=== PATIENT | male | born 1955 | race Caucasian/White ===

== ENCOUNTER → 2016-11-06 | Outpatient (CLI) | payer BC | LOC: RAD 07:36 | PROVIDERS: ATTEND Physician Assistant | DX: R94.5 Abnormal results of liver function studies (principal) | CPT/HCPCS: 76705 ==

== ENCOUNTER → 2017-02-19 | Outpatient (CLI) | payer BC ==
--- NOTE | 2017-02-19 13:36 | RADIOLOGY REPORT (SQ) ---
EXAM DESCRIPTION: CT ABDOMEN COMBO COMPLETED DATE/TIME: 02/19/2017 12:58 pm REASON FOR STUDY: ABNORMAL RESULTS OF LIVER FUNCTION STUDIES R94.5 ABNORMAL RESULTS OF LIVER FUNCTI ON STUDIES R16.0 HEPATOMEGALY, NOT ELSEWHERE CLASSIFIED COMPARISON: None. TECHNIQUE: CT scan of the abdomen performed with and without intravenous contrast, and with oral con trast. Contrasted imaging performed using helical scanning technique with dynamic intravenous contras t injection. Images reviewed with lung, soft tissue, and bone windows. Reconstructed coronal and sagi ttal MPR images reviewed. Delayed images for evaluation of the urinary system also acquired and evalu ated. All images stored on PACS. All CT scanners at this facility use dose modulation, iterative reconstruction, and/or weight based d osing when appropriate to reduce radiation dose to as low as reasonably achievable (ALARA). [facility]: Dose Right [facility]: CareDose [facility]: Dose Right [facility]: Teradose 4D [facility]: [email or web address] CONTRAST TYPE AND DOSE: contrast/concentration: Isovue 370.00 mg/ml; Total Contrast Delivered: 59.0 ml; Total Saline Delivered: 79.0 ml RENAL FUNCTION: Creatinine 1.1 RADIATION DOSE: Up-to-date CT equipment and radiation dose reduction techniques were employed. CTDIv ol: 18.9 - 22.5 mGy. DLP: 3052 mGy-cm.. LIMITATIONS: None. FINDINGS: NONCONTRASTED IMAGING: There are 2 hyperdense lesions associated with the right kidney. T he larger measures 33 mm. The smaller measures 8 mm. These are well-circumscribed and show no enhan cement. POSTCONTRASTED IMAGING: LOWER CHEST: No significant findings. No nodules or infiltrates. LIVER: Normal size. No masses or dilated ducts. SPLEEN: Normal size. No focal lesions. PANCREAS: No masses. No significant calcifications. No adjacent inflammation or peripancreatic fluid collections. Pancreatic duct not dilated. GALLBLADDER: Surgically absent. ADRENAL GLANDS: No significant masses or asymmetry. RIGHT KIDNEY AND URETER: No definite solid masses. There are 2 hyperdense lesions having an appearan ce suggestive of hyperdense cysts. No significant calcifications. No hydronephrosis or hydrourete r. LEFT KIDNEY AND URETER: No solid masses. No significant calcifications. No hydronephrosis or hydr oureter. AORTA AND VESSELS: Mild atherosclerosis. No aneurysm. No dissection. Plaques are present the origi n of the superior mesenteric artery in the origin of the celiac. There is no significant stenosis. There are 2 right renal arteries originating in from a single trunk. There is no renal stenosis. Th e inferior mesenteric artery is patent. Common iliac arteries are patent. RETROPERITONEUM: No retroperitoneal adenopathy, hemorrhage or masses. BOWEL AND PERITONEAL CAVITY: Scattered diverticula arise from the descending and sigmoid colon. APPENDIX: Not included. ABDOMINAL WALL: No masses. No hernias. BONES: No significant or acute findings. OTHER: There is slight thickening of the anterior renal fascia on the left. There is no evidence of inflammatory changes associated with the tail of the pancreas, however. IMPRESSION: 1. There are 2 hyperdense right renal lesions suggestive of hyperdense cysts. No solid mass was seen on the ultrasound that was done on 11/06/2016. Consider six-month follow-up CT with con trast. 2. There is mild diverticulosis coli. 3. There is atherosclerosis with no significant arterial stenoses. 4. There is mild thickening of the anterior renal fascia on the left, but no inflammatory changes ar e seen in the pancreas. TECHNICAL DOCUMENTATION: JOB ID: [id number] Quality ID # [id number]: Final reports with documentation of one or more dose reduction techniques (e.g., Au tomated exposure control, adjustment of the mA and/or kV according to patient size, use of iterative reconstruction technique) 2010 [employer]- All Rights Reserved
== END ==
LOC: RAD 12:31
PROVIDERS: ATTEND Internal Medicine Gastroenterology
DX: R94.5 Abnormal results of liver function studies (principal); R16.0 Hepatomegaly, not elsewhere classified
CPT/HCPCS: 74170; 82565

== ENCOUNTER → 2018-06-27 | Outpatient (CLI) | payer BC ==
--- NOTE | 2018-06-27 10:38 | RADIOLOGY REPORT (SQ) ---
EXAM DESCRIPTION: CT ABDOMEN WITH IV ORAL CONT COMPLETED DATE/TIME: 06/27/2018 7:58 am REASON FOR STUDY: HEPATOMEGALY, NEC (R16.0), CIRRHOSIS (ALCOHOLIC)(K70.30), RUQ PAIN (R10.11) K70.30 ALCOHOLIC CIRRHOSIS OF LIVER WITHOUT ASCITES R10.11 RIGHT UPPER QUADRANT PAIN R16.0 HEPATOMEGALY, NOT ELSEWHERE CLASSIFIED COMPARISON: CT abdomen 02/19/2017 Abdominal ultrasound 11/06/2016, 09/24/2014 CT chest 07/27/2015 TECHNIQUE: CT scan of the abdomen performed with intravenous and with oral contrast using helical sc anning technique with dynamic intravenous contrast injection. Images reviewed with lung, soft tissue, and bone windows. Reconstructed coronal and sagittal MPR images reviewed. Delayed images for evaluat ion of the urinary system also acquired and evaluated. All images stored on PACS. All CT scanners at this facility use dose modulation, iterative reconstruc tion, and/or weight based dosing when appropriate to reduce radiation dose to as low as reasonably ac hievable (ALARA). [facility]: Dose Right [facility]: CareDose [facility]: Dose Right [facility]: Teradose 4D [facility]: [employer] CONTRAST TYPE AND DOSE: contrast/concentration: Isovue 350.00 mg/ml; Total Contrast Delivered: 100.0 ml; Total Saline Delivered: 72.0 ml RENAL FUNCTION: Creatinine 1.1 RADIATION DOSE: CT Rad equipment meets quality standard of care and radiation dose reduction techniq ues were employed. CTDIvol: 22.8 - 24.4 mGy. DLP: 1683 mGy-cm. . LIMITATIONS: None. FINDINGS: LOWER CHEST: No significant findings. No nodules or infiltrates. LIVER: Slightly nodular contour, with atrophy of the right lobe liver and prominence of the left lobe liver from cirrhosis. Normal portal vein and hepatic vein enhancement. No gross hepatic masses. N o biliary ductal dilatation. There is portal hypertension, with multiple varices in the left upper quadrant and right upper quadra nt, and left retroperitoneum. Small to moderate amount of ascites in the upper abdomen. SPLEEN: Not enlarged. No focal lesions PANCREAS: No masses. No significant calcifications. No adjacent inflammation or peripancreatic fluid collections. Pancreatic duct not dilated. GALLBLADDER: Surgically absent ADRENAL GLANDS: No significant masses or asymmetry. RIGHT KIDNEY AND URETER: No solid masses. Benign 3 cm right upper pole hemorrhagic cysts. Multiple other smaller hemorrhagic and nonhemorrhagic cortical cysts are present right kidney. No significan t calcifications. No hydronephrosis or hydroureter. LEFT KIDNEY AND URETER: No solid masses. Nonhemorrhagic cysts left kidney, the largest is 3 cm in th e left mid pole. No significant calcifications. No hydronephrosis or hydroureter. AORTA AND VESSELS: No aneurysm. No dissection. Renal arteries, SMA, celiac without stenosis. RETROPERITONEUM: No retroperitoneal adenopathy, hemorrhage or masses. BOWEL AND PERITONEAL CAVITY: Patient drank oral contrast. No bowel obstruction. APPENDIX: Not in the field of view ABDOMINAL WALL: No masses. No hernias. BONES: Degenerative disc disease at L4-5 OTHER: No other significant finding. IMPRESSION: Cirrhosis with portal hypertension. Small to moderate amount of ascites in the upper ab domen TECHNICAL DOCUMENTATION: JOB ID: [id number] Quality ID # [id number]: Final reports with documentation of one or more dose reduction techniques (e.g., Au tomated exposure control, adjustment of the mA and/or kV according to patient size, use of iterative reconstruction technique) 2010 [employer]- All Rights Reserved Reading location - IP/workstation name: [email or web address]
== END ==
LOC: RAD 07:22
PROVIDERS: ATTEND Internal Medicine Gastroenterology
DX: K70.30 Alcoholic cirrhosis of liver without ascites (principal); R16.0 Hepatomegaly, not elsewhere classified; R10.11 Right upper quadrant pain
CPT/HCPCS: 74160; 82565

== ENCOUNTER → 2018-08-20 | Outpatient (CLI) | payer BC ==
[2018-08-20 10:05] LABS: BLOOD UREA NITROGEN 17 mg/dL (7-20); GLUCOSE 100 mg/dL (75-110); POTASSIUM 5.3 mmol/L (3.6-5.0)
[2018-08-20 10:10] LABS: ANION GAP 7 (5-19); CARBON DIOXIDE 29 mmol/L (22-30); CHLORIDE 101 mmol/L (98-107); SODIUM 136.8 mmol/L (137-145)
== END ==
LOC: LAB 09:30
PROVIDERS: ATTEND Physician Assistant Surgical
DX: E87.5 Hyperkalemia (principal)
CPT/HCPCS: 36415; 80048

== ENCOUNTER → 2018-10-23 | Outpatient (CLI) | payer BC ==
[2018-10-23 10:55] LABS: HEMATOCRIT 44.1 % (37.9-51.0); HEMOGLOBIN 15.4 g/dL (13.5-17.0); MEAN CORPUSCULAR HEMOGLOBIN 35.8 pg (27.0-33.4); MEAN CORPUSCULAR HGB CONC 34.9 g/dL (32.0-36.0); MEAN CORPUSCULAR VOLUME 103 fl (80-97); PLATELET COUNT 136 10^3/uL (150-450); RED BLOOD COUNT 4.31 10^6/uL (4.35-5.55); RED CELL DISTRIBUTION WIDTH 12.9 % (11.5-14.0)
[2018-10-23 11:02] LABS: INTERNATIONAL RATION (INR) 1.11; PROTHROMBIN TIME 14.9 SEC (11.4-15.4)
[2018-10-23 11:20] LABS: ALANINE AMINOTRANSFERASE 37 U/L (21-72); ALBUMIN 3.9 g/dL (3.5-5.0); ALKALINE PHOSPHATASE 70 U/L (38-126); ANION GAP 8 (5-19); ASPARTATE AMINO TRANSFERASE 68 U/L (17-59); BILIRUBIN,DIRECT 0.5 mg/dL (0.0-0.4); BILIRUBIN,TOTAL 1.2 mg/dL (0.2-1.3); BLOOD UREA NITROGEN 10 mg/dL (7-20); CALCIUM 9.5 mg/dL (8.4-10.2); CARBON DIOXIDE 29 mmol/L (22-30); CHLORIDE 102 mmol/L (98-107); GLUCOSE 169 mg/dL (75-110); POTASSIUM 4.9 mmol/L (3.6-5.0); SODIUM 139.2 mmol/L (137-145); TOTAL PROTEIN 6.9 g/dL (6.3-8.2)
== END ==
LOC: LAB 10:36
PROVIDERS: ATTEND Physician Assistant Surgical
DX: K70.30 Alcoholic cirrhosis of liver without ascites (principal); R16.0 Hepatomegaly, not elsewhere classified
CPT/HCPCS: 36415; 80048; 80076; 85027; 85610

== ENCOUNTER → 2018-11-22 | Outpatient (CLI) | payer BC ==
[2018-11-22 09:42] LABS: HEMATOCRIT 44.8 % (37.9-51.0); HEMOGLOBIN 15.9 g/dL (13.5-17.0); MEAN CORPUSCULAR HEMOGLOBIN 35.8 pg (27.0-33.4); MEAN CORPUSCULAR HGB CONC 35.5 g/dL (32.0-36.0); MEAN CORPUSCULAR VOLUME 101 fl (80-97); PLATELET COUNT 172 10^3/uL (150-450); RED BLOOD COUNT 4.44 10^6/uL (4.35-5.55); RED CELL DISTRIBUTION WIDTH 12.4 % (11.5-14.0); WHITE BLOOD COUNT 5.9 10^3/uL (4.0-10.5)
[2018-11-22 09:48] LABS: INTERNATIONAL RATION (INR) 1.07; PROTHROMBIN TIME 14.5 SEC (11.4-15.4)
[2018-11-22 10:04] LABS: ALANINE AMINOTRANSFERASE 40 U/L (21-72); ALBUMIN 3.8 g/dL (3.5-5.0); ALKALINE PHOSPHATASE 88 U/L (38-126); ANION GAP 9 (5-19); ASPARTATE AMINO TRANSFERASE 70 U/L (17-59); BILIRUBIN,DIRECT 0.6 mg/dL (0.0-0.4); BILIRUBIN,TOTAL 1.6 mg/dL (0.2-1.3); BLOOD UREA NITROGEN 15 mg/dL (7-20); CALCIUM 9.9 mg/dL (8.4-10.2); CARBON DIOXIDE 33 mmol/L (22-30); CHLORIDE 92 mmol/L (98-107); GLUCOSE 179 mg/dL (75-110); POTASSIUM 4.7 mmol/L (3.6-5.0); SODIUM 133.9 mmol/L (137-145); TOTAL PROTEIN 7.5 g/dL (6.3-8.2)
== END ==
LOC: OD 08:42
PROVIDERS: ATTEND Physician Assistant Surgical
DX: K70.30 Alcoholic cirrhosis of liver without ascites (principal); R94.5 Abnormal results of liver function studies
CPT/HCPCS: 36415; 80048; 80076; 82105; 85027; 85610

== ENCOUNTER 2019-04-14 08:18 | Inpatient (IN) | payer BC ==
[2019-04-14] MEDS ORDERED: PANTOPRAZOLE SODIUM 40 MG VIAL IV ONE ×2 (08:39→13:22)
[2019-04-14] MEDS ORDERED: NORMAL SALINE 1000 ML 1,000 ML IV ONE (08:39)
--- NOTE | 2019-04-14 08:45 | ER Document Report ---
ED GI Bleed / Rectal Pain - General Stated Complaint: POSSIBLE GI BLEED Time Seen by Provider: 04/14/19 08:37 Primary Care Provider: KARLA RAMACHANDRAN PA-C [COMMUNITY BASED STAFF] - Follow up as needed Notes: 63-year-old male with a history of alcoholic liver disease presents to the ER complaining of black tarry stools. Patient is also thrown up several times. He states she has had some small specks of bright red blood in his emesis. He denies any abdominal pain. Denies chest pain denies shortness of breath. Mother stated that the patient had some alcohol this weekend and this is likely what has triggered the events. The patient is on medicine for edema and cirrhosis. The patient denies any fever chills cough or sore throat states he is vomited several times with some small specks of blood in the emesis the knees had consistent black tarry stools. TRAVEL OUTSIDE OF THE [place] IN LAST 30 DAYS: No - Related Data Allergies/Adverse Reactions: morphine Allergy (Intermediate, Verified 04/14/19 09:32) oxycodone Allergy (Intermediate, Verified 04/14/19 09:33) Past Medical History - Social History Smoking Status: Current Every Day Smoker Family History: None Review of Systems - Review of Systems Constitutional: denies: Chills, Fever Cardiovascular: denies: Chest pain, Dizziness Respiratory: denies: Short of breath Gastrointestinal: Abdomen distended, Abdominal pain, Nausea, Vomiting, Blood in vomit, Black stools. denies: Constipation Genitourinary: denies: Dysuria Neurological/Psychological: denies: Headaches -: Yes All other systems reviewed and negative Physical Exam - Vital signs Vitals: Pulse Ox 98 04/14/19 08:32 - Notes Notes: GENERAL_APPEARANCE: well_nourished, alert, cooperative VITALS: reviewed, see vital signs table. HEAD: no_swelling\tenderness on the head. EYES: conjunctiva_clear. NOSE: no_nasal_discharge. MOUTH: (-)decreased moisture. THROAT: no_tonsilar_inflammation, no_airway_obstruction. no_lymphadenopathy NECK: supple, no_neck_tenderness, (-)thyromegaly. BACK: no_back_tenderness. CHEST_WALL: no_chest_tenderness. LUNGS: no_wheezing, no_rales, no_rhonchi, (-)accessory muscle use, good air exchange bilateral. HEART: normal_rate, normal_rhythm, normal_S1, normal_S2, (-)S3, (-)S4, no_murmur, no_rub. ABDOMEN: normal_BS, soft, no_abd_tenderness, (-)guarding, (-)rebound, no_org anomegaly, no_abd_masses. EXTREMITIES: strength 5/5 in all_extremities, good pulses in all_extremities, no_swelling\tenderness in the extremities, no_edema. SKIN: warm, dry, good_color, no_rash. MENTAL_STATUS: speech_clear, oriented_X_3, normal_affect, responds_appropriately to questions. NEURO: Neg Motor or Sensory Deficits on exam, CN 2-12 intact, DTR 2+ symmetric x 4, No cerbellar signs Course - Re-evaluation Re-evalutation: 04/14/19 08:44 63-year-old male with history of alcoholic liver disease presents to the ER with back tarry stools. He also states he is vomited several times have some small amount of blood in the emesis. He denies any history of esophageal varices. Never had a EGD with clipping. We will give the patient 80 of IV Protonix a liter of IV fluid. We will check his stool for blood. Check his hemoglobin coags and type and screen. Patient GI doctors Dr. Anderson. 04/14/19 12:11 Lab work is fairly reassuring. The patient rectal exam showed no masses but he is having very dark tarry stools. He has not thrown up any more coffee-ground emesis or blood. The patient's lab work does show an suggest his chronic cirrhosis and liver disease. Because of this the patient is more at risk for worsening GI bleeding. I will speak with the hospitalist service. - Vital Signs Vital signs: Temp Pulse Resp BP Pulse Ox 98.2 F 16 138/71 H 98 04/14/19 08:49 04/14/19 11:01 04/14/19 11:00 04/14/19 11:01 - Laboratory Result Diagrams: 04/14/19 08:39 04/14/19 08:39 Laboratory results interpreted by me: 04/14/19 04/14/19 04/14/19 08:39 08:39 08:39 RBC 3.57 L Hgb 12.7 L Hct 36.5 L MCV 102 H MCH 35.6 H PT 18.0 H Sodium 131.6 L Chloride 91 L Carbon Dioxide 33 H Glucose 137 H Total Bilirubin 3.3 H Direct Bilirubin 1.0 H AST 117 H Albumin 3.3 L - Diagnostic Test Radiology reviewed: Reports reviewed Radiology results interpreted by me: 04/14/19 12:10 Acute Abdomen Series 04/14/19 08:39 IMPRESSION: NO RADIOGRAPHIC EVIDENCE FOR ACUTE ABDOMINAL DISEASE. Discharge - Discharge Clinical Impression: Upper GI bleeding Condition: Good Disposition: ADMITTED INPATIENT Admitting Provider: Farshad (Hospitalist) Unit Admitted: Telemetry Referrals: KARLA RAMACHANDRAN PA-C [COMMUNITY BASED STAFF] - Follow up as needed
[2019-04-14 08:58] LABS: ABSOLUTE LYMPHOCYTES (AUTO) 1.1 10^3/uL (0.5-4.7); ABSOLUTE MONOCYTES (AUTO) 0.6 10^3/uL (0.1-1.4); ABSOLUTE NEUT (AUTO) 6.1 10^3/uL (1.7-8.2); BASOPHILS % (AUTO) 0.4 % (0-2); EOSINOPHILS % (AUTO) 0.3 % (0-6); HEMATOCRIT 36.5 % (37.9-51.0); HEMOGLOBIN 12.7 g/dL (13.5-17.0); LYMPHOCYTES % (AUTO) 13.5 % (13-45); MEAN CORPUSCULAR HEMOGLOBIN 35.6 pg (27.0-33.4); MEAN CORPUSCULAR HGB CONC 34.8 g/dL (32.0-36.0); MEAN CORPUSCULAR VOLUME 102 fl (80-97); MONOCYTES % (AUTO) 7.8 % (3-13); PLATELET COUNT 172 10^3/uL (150-450); RED BLOOD COUNT 3.57 10^6/uL (4.35-5.55); TOTAL CELLS COUNTED % (AUTO) 100 %; WHITE BLOOD COUNT 7.8 10^3/uL (4.0-10.5)
[2019-04-14 09:04] LABS: INTERNATIONAL RATION (INR) 1.48
[2019-04-14 09:05] LABS: PARTIAL THROMBOPLASTIN TIME 31.3 SEC (23.5-35.8)
[2019-04-14 09:21] LABS: ALBUMIN 3.3 g/dL (3.5-5.0); ALKALINE PHOSPHATASE 84 U/L (38-126); ANION GAP 8 (5-19); ASPARTATE AMINO TRANSFERASE 117 U/L (17-59); BILIRUBIN,TOTAL 3.3 mg/dL (0.2-1.3); BLOOD UREA NITROGEN 20 mg/dL (7-20); CALCIUM 9.2 mg/dL (8.4-10.2); CARBON DIOXIDE 33 mmol/L (22-30); CHLORIDE 91 mmol/L (98-107); GLUCOSE 137 mg/dL (75-110); TOTAL PROTEIN 6.5 g/dL (6.3-8.2)
[2019-04-14 09:22] LABS: ALCOHOL < 10 mg/dL (NONE DETECTED)
--- NOTE | 2019-04-14 09:30 | RADIOLOGY REPORT (SQ) ---
EXAM DESCRIPTION: ACUTE ABDOMEN SERIES COMPLETED DATE/TIME: 04/14/2019 9:08 am REASON FOR STUDY: Vomiting COMPARISON: None. NUMBER OF VIEWS: Three views. TECHNIQUE: Frontal chest, supine abdomen and upright/decubitus abdomen radiographic images acquired. LIMITATIONS: None. FINDINGS: CHEST: Lungs clear of infiltrates. FREE AIR: None. No abnormal gas collections. BOWEL GAS PATTERN: Nonobstructive pattern. No dilated loops or air fluid levels. CALCIFICATIONS: No suspicious calcifications. HARDWARE: Surgical clips in the upper abdomen. Hardware in the right humeral head. SOFT TISSUES: No gross mass or suggestion of organomegaly. BONES: No acute fracture. No worrisome bone lesions. OTHER: No other significant finding. IMPRESSION: NO RADIOGRAPHIC EVIDENCE FOR ACUTE ABDOMINAL DISEASE. TECHNICAL DOCUMENTATION: JOB ID: [id number] [employer]- All Rights Reserved Reading location - IP/workstation name: [email or web address]
[2019-04-14] MEDS ORDERED: DEXTROSE 50%-WATER 25 GM/50 ML DISP.SYRIN IV PRN ×2 (13:21)
[2019-04-14] MEDS ORDERED: NORMAL SALINE 1000 ML 1,000 ML IV PRN (13:21)
[2019-04-14] MEDS ORDERED: GLUCAGON,HUMAN RECOMB 1 MG INJ SUBCUT PRN (13:21)
[2019-04-14] MEDS ORDERED: ONDANSETRON HCL INJ/PF 4 MG/2 ML SDV IV PRN (13:21)
[2019-04-14] MEDS ORDERED: IPRATROPIUM/ALBUTEROL 0.5-2.5 MG/3 ML AMPUL NEB PRN (13:21)
[2019-04-14] MEDS ORDERED: ACETAMINOPHEN 325 MG TABLET PO PRN (13:21)
[2019-04-14] MEDS ORDERED: DEXTROSE 40% GEL 15 GM TUBE PO PRN ×2 (13:21)
[2019-04-14] MEDS ORDERED: LORAZEPAM 0.5 MG TABLET PO PRN (17:03)
--- NOTE | 2019-04-14 17:10 | PDOC H&P ---
History of Present Illness Admission Date/PCP: 04/14/19 12:28 MELANIE SALEEM MD Patient complains of: Black tarry stool History of Present Illness: KIRK CHINCHILLA is a 63 year old male Is a 63-year-old male with a history of alcoholic cirrhosis of the liver history of the esophageal varices history of the hypertension hyperlipidemia and history of the rheumatoid arthritis came to the emergency department complaining of a black tarry stool in patients also throughout with some red blood couple of times Patient's denied any abdominal pain no nausea but vomited as above. .Patient's also currently see a Dr. Anderson last endoscopy was done in 2018 with so some mild psoriasis Patient also see Dr. Romero for rheumatoid arthritis is not getting the every 6- month injections In the emergency department patient initial work-up positive for guaiac stool and patient hemoglobin is stable Patient is denied any chest pain to than any shortness of the breath At this point discussed with Dr. Anderson decided to admit keep n.p.o. and possible need a further scope Patient's claimed that he drinks some alcohol this weekend and I believe that triggered the things patient's serum alcohol level is low Past Medical History Pulmonary Medical History: Reports: Chronic Obstructive Pulmonary Disease (COPD) GI Medical History: Reports: Cirrhosis, Gastroesophageal Reflux Disease Musculoskeletal History Note: Rheumatoid arthritis Psychiatric Medical History: Reports: Alcohol Dependency Past Surgical History Past Surgical History: Reports: Cholecystectomy, Other Social History Information Source: Patient Smoking Status: Current Every Day Smoker Frequency of Alcohol Use: Social Hx Recreational Drug Use: No Hx Prescription Drug Abuse: No Family History Family History: None, Reviewed & Not Pertinent Parental Family History Reviewed: Yes Children Family History Reviewed: Yes Sibling(s) Family History Reviewed.: Yes Medication/Allergy Home Medications: Furosemide [Lasix 20 mg Tablet] 20 mg PO QAM 04/14/19 Ibuprofen [Motrin 800 mg Tablet] 800 mg PO Q8H PRN 04/14/19 Nadolol [Corgard] 20 mg PO QPM 04/14/19 Nadolol [Corgard] 40 mg PO QAM 04/14/19 Pantoprazole Sodium [Protonix [address] Tablet] 40 mg PO DAILY 04/14/19 Spironolactone [Aldactone 25 mg Tablet] 25 mg PO DAILY 04/14/19 Allergies/Adverse Reactions: morphine Allergy (Intermediate, Verified 04/14/19 09:32) oxycodone Allergy (Intermediate, Verified 04/14/19 09:33) Review of Systems Constitutional: ABSENT: chills, fever(s), headache(s), weight gain, weight loss Eyes: ABSENT: visual disturbances Ears: ABSENT: hearing changes Cardiovascular: ABSENT: chest pain, dyspnea on exertion, edema, orthropnea, palpitations Respiratory: ABSENT: cough, hemoptysis Gastrointestinal: PRESENT: melena, nausea, vomiting. ABSENT: abdominal pain, constipation, diarrhea, hematemesis, hematochezia Genitourinary: ABSENT: dysuria, hematuria Musculoskeletal: ABSENT: joint swelling Integumentary: ABSENT: rash, wounds Neurological: ABSENT: abnormal gait, abnormal speech, confusion, dizziness, focal weakness, syncope Psychiatric: ABSENT: anxiety, depression, homidical ideation, suicidal ideation Endocrine: ABSENT: cold intolerance, heat intolerance, menstrual abnormalities, polydipsia, polyuria Hematologic/Lymphatic: ABSENT: easy bleeding, easy bruising, lymphadenopathy Physical Exam Vital Signs: Temp Pulse Resp BP Pulse Ox 98.2 F 16 138/71 H 98 04/14/19 08:49 04/14/19 11:01 04/14/19 11:00 04/14/19 11:01 Intake & Output 04/13/19 04/14/19 04/15/19 06:59 06:59 06:59 Intake Total 1000 Balance 1000 Weight 100.8 kg General appearance: PRESENT: no acute distress, well-developed, well-nourished Head exam: PRESENT: atraumatic, normocephalic Eye exam: PRESENT: conjunctiva pink, EOMI, PERRLA. ABSENT: scleral icterus Ear exam: PRESENT: normal external ear exam Mouth exam: PRESENT: moist, tongue midline Neck exam: PRESENT: full ROM. ABSENT: carotid bruit, JVD, lymphadenopathy, thyromegaly Respiratory exam: PRESENT: clear to auscultation arnulfo Cardiovascular exam: PRESENT: RRR. ABSENT: diastolic murmur, rubs, systolic murmur Pulses: PRESENT: normal dorsalis pedis pul, +2 pedal pulses bilateral Vascular exam: PRESENT: normal capillary refill GI/Abdominal exam: PRESENT: normal bowel sounds, soft. ABSENT: distended, guarding, mass, organolmegaly, rebound, tenderness Rectal exam: PRESENT: deferred Extremities exam: ABSENT: pedal edema Musculoskeletal exam: PRESENT: ambulatory Neurological exam: PRESENT: alert, awake, oriented to person, oriented to place, oriented to time, oriented to situation, CN II-XII grossly intact. ABSENT: motor sensory deficit Psychiatric exam: PRESENT: appropriate affect, normal mood. ABSENT: homicidal ideation, suicidal ideation Skin exam: PRESENT: dry, intact, warm. ABSENT: cyanosis, rash Results Laboratory Results: 04/14/19 08:39 04/14/19 08:39 04/14/19 04/14/19 04/14/19 08:39 08:39 08:39 WBC 7.8 RBC 3.57 L Hgb 12.7 L Hct 36.5 L MCV 102 H MCH 35.6 H MCHC 34.8 RDW 13.0 Plt Count 172 Seg Neutrophils % 78.0 Lymphocytes % 13.5 Monocytes % 7.8 Eosinophils % 0.3 Basophils % 0.4 Absolute Neutrophils 6.1 Absolute Lymphocytes 1.1 Absolute Monocytes 0.6 Absolute Eosinophils 0.0 Absolute Basophils 0.0 Sodium 131.6 L Potassium 4.0 Chloride 91 L Carbon Dioxide 33 H Anion Gap 8 BUN 20 Creatinine 1.07 Est GFR ( Amer) > 60 Est GFR (Non-Af Amer) > 60 Glucose 137 H Calcium 9.2 Total Bilirubin 3.3 H AST 117 H Alkaline Phosphatase 84 Total Protein 6.5 Albumin 3.3 L Lipase 169.8 Blood Type AB NEGATIVE Antibody Screen NEGATIVE Impressions: Acute Abdomen Series 04/14/19 08:39 IMPRESSION: NO RADIOGRAPHIC EVIDENCE FOR ACUTE ABDOMINAL DISEASE. Assessment & Plan - Diagnosis (1) Upper GI bleeding Is this a current diagnosis for this admission?: Yes Plan: Admit the patient in a telemetry started on a Protonix drips IV fluid and as per discussed with Dr. 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 We currently hold the any NSAID The injections every 6-month (5) Chronic obstructive pulmonary disease Qualifiers: COPD type: unspecified COPD Qualified Code(s): J44.9 - Chronic obstructive pulmonary disease, unspecified Is this a current diagnosis for this admission?: Yes Plan: Continues to PRN nebulizer treatments (6) Hypertension Qualifiers: Hypertension type: essential hypertension Qualified Code(s): I10 - Essential (primary) hypertension Is this a current diagnosis for this admission?: Yes Plan: Continues to current medications (7) Hyperlipidemia Qualifiers: Hyperlipidemia type: unspecified Qualified Code(s): E78.5 - Hyperlipidemia, unspecified Is this a current diagnosis for this admission?: No (8) History of alcoholism Is this a current diagnosis for this admission?: Yes Plan: Will continues the patient on thiamine multivitamin and folic acid's Patient's currently alcohol level is less than 10 Patient's claim he is not drinking every day We will continue to monitor and may be consider alcohol withdrawal protocol if he needed - Time Time Spent: 30 to 50 Minutes Medications reviewed and adjusted accordingly: Yes Anticipated discharge: Home Within: Other - Inpatient Certification Based on my medical assessment, after consideration of the patient's comorbidities, presenting symptoms, or acuity I expect that the services needed warrant INPATIENT care.: Yes I certify that my determination is in accordance with my understanding of Medicare's requirements for reasonable and necessary INPATIENT services [42 CFR 412.3e].: Yes Medical Necessity: Significant Comorbidiites Make Outpatient Treatment Too Risky, Need Close Monitoring Due to Risk of Patient Decompensation, Need For IV Fluids Post Hospital Care: D/C Client Relationship Executive Documentation - Plan Summary Plan Summary: Admit the patient in a telemetry bed With the patient and the regarding the patient's current conditions and discussed with the Dr. Anderson
[2019-04-14] MEDS ORDERED: NADOLOL 40 MG TABLET PO SCH (18:00)
[2019-04-14] MEDS ORDERED: (PENDING PHARMACY ID) (Nadolol [Corgard] 20 MG) PO SCH (18:00)
[2019-04-14] MEDS ORDERED: THIAMINE HCL 100 MG, FOLIC ACID 1 MG in NORMAL SALINE 250 ML IV SCH (18:00)
[2019-04-14] MEDS: NORMAL SALINE 1000 ML 1,000 ML with POTASSIUM CHLORIDE 20 MEQ, MAGNESIUM SULFATE 8 MEQ,... IV SCH ×5 (18:39)
[2019-04-14] MEDS ORDERED: OCTREOTIDE ACETATE INJ/PF 100 MCG/1 ML SDV IV ONE (19:09)
[2019-04-14] MEDS ORDERED: ONDANSETRON HCL INJ/PF 4 MG/2 ML SDV IV ONE (19:45)
[2019-04-14] MEDS ORDERED: LORAZEPAM INJ 2 MG/1 ML VIAL IV PRN (19:53)
--- NOTE | 2019-04-14 19:58 | Progress Note ---
Provider Note Provider Note: The nurses call the patient never vomited red blood x1 I came to the floor see the patient was stable patient is alert awake oriented x4 discussed with the and the bedside Examined the patient's Discussed with the Dr. Anderson transfer the patient in ICU prepare for the endoscopy Patient have a significant history of the alcoholism as per discussed with the patient drinks 7-8 beer last night patient continues use the ibuprofen and patient have history of esohagel varices and cirrosis most likely bleeding come from the varices We will check the stat CBC Chem-7 PT/INR Dr. Anderson order the FFP And octreotide drips Patient's brought to the ICU discussed with the ICU nurses Patient is currently hemodynamically stable Again patient with significant risk for the bleeding from the varices with the peptic ulcer disease and cirrhosis of the liver and chronic alcoholism and chronic use NSAID
[2019-04-14] MEDS ORDERED: DIPHENHYDRAMINE HCL 50 MG/ML VIAL ONE (20:01)
[2019-04-14] MEDS ORDERED: ONDANSETRON HCL INJ/PF 4 MG/2 ML SDV ONE (20:01)
[2019-04-14] MEDS ORDERED: FENTANYL CITRATE INJ/PF 100 MCG/2 ML AMPUL ONE (20:01)
[2019-04-14] MEDS ORDERED: FLUMAZENIL INJ 0.5 MG/5 ML VIAL ONE (20:02)
[2019-04-14] MEDS ORDERED: NALOXONE HCL INJ/PF 0.4 MG/1 ML SDV ONE (20:02)
[2019-04-14] MEDS ORDERED: EPINEPHRINE INJ 1 MG/10 ML DISP.SYRIN ONE (20:02)
[2019-04-14] MEDS ORDERED: GLUCAGON,HUMAN RECOMB 1 MG INJ ONE (20:02)
[2019-04-14 20:33] LABS: ABSOLUTE EOSINOPHILS # (AUTO) 0.1 10^3/uL (0.0-0.6); ABSOLUTE LYMPHOCYTES (AUTO) 1.6 10^3/uL (0.5-4.7); ABSOLUTE MONOCYTES (AUTO) 1.4 10^3/uL (0.1-1.4); ABSOLUTE NEUT (AUTO) 8.2 10^3/uL (1.7-8.2); BASOPHILS % (AUTO) 0.4 % (0-2); EOSINOPHILS % (AUTO) 0.6 % (0-6); HEMATOCRIT 32.5 % (37.9-51.0); HEMOGLOBIN 11.3 g/dL (13.5-17.0); LYMPHOCYTES % (AUTO) 14.4 % (13-45); MEAN CORPUSCULAR HEMOGLOBIN 35.8 pg (27.0-33.4); MEAN CORPUSCULAR HGB CONC 34.9 g/dL (32.0-36.0); MEAN CORPUSCULAR VOLUME 102 fl (80-97); MONOCYTES % (AUTO) 12.5 % (3-13); PLATELET COUNT 166 10^3/uL (150-450); RED BLOOD COUNT 3.17 10^6/uL (4.35-5.55); RED CELL DISTRIBUTION WIDTH 13.2 % (11.5-14.0); SEGMENTED NEUTROPHILS % (AUTO) 72.1 % (42-78); TOTAL CELLS COUNTED % (AUTO) 100 %; WHITE BLOOD COUNT 11.4 10^3/uL (4.0-10.5)
[2019-04-14] MEDS: MIDAZOLAM 2 MG/2 ML INJ ONE ×2 (20:40→20:45)
[2019-04-14 20:45] LABS: INTERNATIONAL RATION (INR) 1.52; PROTHROMBIN TIME 18.4 SEC (11.4-15.4)
[2019-04-14 20:46] LABS: PARTIAL THROMBOPLASTIN TIME 33.3 SEC (23.5-35.8)
[2019-04-14 20:53] LABS: ANION GAP 7 (5-19); BLOOD UREA NITROGEN 26 mg/dL (7-20); CALCIUM 8.8 mg/dL (8.4-10.2); CARBON DIOXIDE 30 mmol/L (22-30); CHLORIDE 96 mmol/L (98-107); GLUCOSE 112 mg/dL (75-110); POTASSIUM 3.9 mmol/L (3.6-5.0)
[2019-04-14] MEDS: NORMAL SALINE 500 ML with OCTREOTIDE ACETATE 500 MCG IV PRN ×2 (21:00)
[2019-04-14] MEDS ORDERED: PANTOPRAZOLE SODIUM 80 MG in NORMAL SALINE 100 ML IV ONE (21:00)
--- NOTE | 2019-04-14 21:15 | PDOC CONSULTATION ---
Consultation Consult Date: 04/14/19 Provider Consulted: DERECK CLEMENT History of Present Illness Admission Date/PCP: 04/14/19 12:28 MELANIE SALEEM MD History of Present Illness: IKRK CHINCHILLA is a 63 year old malePatient was admitted earlier today through the emergency room with hematemesis. He vomited a few times during the night and started vomiting bright red blood again tonight hence he was transferred to ICU. he has a history of moderate size esophageal varices but has never had a GI bleed. His last endoscopy was in June 2018. He has had cirrhosis for many years and continues to abuse alcohol every day. He has been on nadolol since 2018. He denies abdominal pain, or diarrhea. He does have rheumatoid arthritis and takes ibuprofen regularly. On admission his hemoglobin was 12.7 with a white count of 7.8 and platelet count of 172. A repeat 12 hours later showed a hemoglobin of 11.3. His INR was 1.48 on admission with a bilirubin of 3.3, AST 117 and ALT of 55. Albumin was 3.3 with a sodium of 131. He is on furosemide 20 mg and Aldactone 25 mg daily Past Medical History Past Medical History: Reflux disease, rheumatoid arthritis, portal hypertension, esophageal varices, alcohol abuse, fatty liver, COPD, alcoholic cirrhosis Pulmonary Medical History: Reports: Chronic Obstructive Pulmonary Disease (COPD) Neurological Medical History: Denies: Seizures GI Medical History: Reports: Cirrhosis, Gastroesophageal Reflux Disease Psychiatric Medical History: Reports: Alcohol Dependency Past Surgical History Past Surgical History: Reports: Cholecystectomy, Other Social History Smoking Status: Current Every Day Smoker Number of Years Smokin Last Time Smoked: 3 months ago Frequency of Alcohol Use: Social Hx Recreational Drug Use: No Hx Prescription Drug Abuse: No Family History Family History: None, Reviewed & Not Pertinent Parental Family History Reviewed: No Children Family History Reviewed: NA Sibling(s) Family History Reviewed.: NA Medication/Allergy Home Medications: Furosemide [Lasix 20 mg Tablet] 20 mg PO QAM 04/14/19 Ibuprofen [Motrin 800 mg Tablet] 800 mg PO Q8H PRN 04/14/19 Nadolol [Corgard] 20 mg PO QPM 04/14/19 Nadolol [Corgard] 40 mg PO QAM 04/14/19 Pantoprazole Sodium [Protonix [address] Tablet] 40 mg PO DAILY 04/14/19 Spironolactone [Aldactone 25 mg Tablet] 25 mg PO DAILY 04/14/19 Allergies/Adverse Reactions: morphine Allergy (Intermediate, Verified 04/14/19 09:32) oxycodone Allergy (Intermediate, Verified 04/14/19 09:33) Review of Systems All systems: reviewed and no additional remarkable complaints except as stated Physical Exam Vital Signs: Temp Pulse Resp BP Pulse Ox 98.2 F 90 16 135/69 H 97 04/14/19 14:42 04/14/19 20:27 04/14/19 20:27 04/14/19 20:27 04/14/19 20:27 Intake & Output 04/13/19 04/14/19 04/15/19 06:59 06:59 06:59 Intake Total 1300 Balance 1300 Weight 82.5 kg Exam: General: Patient is alert and looks well. HEENT: There is some jaundice but no pallor. PERRLA. Oropharynx normal Respiratory: No chest deformity. No respiratory distress. Chest wall palpitation was unremarkable. Breath sounds were normal Cardiovascular: Heart sounds 1 and 2 normal with no murmurs. Abdominal: Slightly distended. Soft and nontender. Liver and spleen not palpable. No ascites demonstrated. Bowel sounds active. Rectal examination was deferred. Extremities: No edema Neurological: Alert and oriented x4. Grossly nonfocal. Normal speech Skin: No significant rash Psychological: Normal affect Results Laboratory Results: 04/14/19 20:15 04/14/19 20:15 04/14/19 04/14/19 04/14/19 08:39 08:39 08:39 WBC 7.8 RBC 3.57 L Hgb 12.7 L Hct 36.5 L MCV 102 H MCH 35.6 H MCHC 34.8 RDW 13.0 Plt Count 172 Seg Neutrophils % 78.0 Lymphocytes % 13.5 Monocytes % 7.8 Eosinophils % 0.3 Basophils % 0.4 Absolute Neutrophils 6.1 Absolute Lymphocytes 1.1 Absolute Monocytes 0.6 Absolute Eosinophils 0.0 Absolute Basophils 0.0 Sodium 131.6 L Potassium 4.0 Chloride 91 L Carbon Dioxide 33 H Anion Gap 8 BUN 20 Creatinine 1.07 Est GFR ( Amer) > 60 Est GFR (Non-Af Amer) > 60 Glucose 137 H Calcium 9.2 Total Bilirubin 3.3 H AST 117 H Alkaline Phosphatase 84 Total Protein 6.5 Albumin 3.3 L Lipase 169.8 Blood Type AB NEGATIVE Antibody Screen NEGATIVE 04/14/19 04/14/19 20:15 20:15 WBC 11.4 H RBC 3.17 L Hgb 11.3 L Hct 32.5 L MCV 102 H MCH 35.8 H MCHC 34.9 RDW 13.2 Plt Count 166 Seg Neutrophils % 72.1 Lymphocytes % 14.4 Monocytes % 12.5 Eosinophils % 0.6 Basophils % 0.4 Absolute Neutrophils 8.2 Absolute Lymphocytes 1.6 Absolute Monocytes 1.4 Absolute Eosinophils 0.1 Absolute Basophils 0.0 Sodium 132.5 L Potassium 3.9 Chloride 96 L Carbon Dioxide 30 Anion Gap 7 BUN 26 H Creatinine 1.05 Est GFR ( Amer) > 60 Est GFR (Non-Af Amer) > 60 Glucose 112 H Calcium 8.8 Total Bilirubin AST Alkaline Phosphatase Total Protein Albumin Lipase Blood Type Antibody Screen Impressions: Acute Abdomen Series 04/14/19 08:39 IMPRESSION: NO RADIOGRAPHIC EVIDENCE FOR ACUTE ABDOMINAL DISEASE. Assessment & Plan - Diagnosis (1) Upper GI bleeding Is this a current diagnosis for this admission?: Yes Plan: He is likely bleeding from his esophageal varices and will undergo an urgent endoscopy. He will be receiving 2 units of plasma and will likely need blood. He was started on Sandostatin after a bolus dose. Vitamin K will also be provided (2) Alcoholic cirrhosis of liver Qualifiers: Ascites presence: without ascites Qualified Code(s): K70.30 - Alcoholic cirrhosis of liver without ascites Is this a current diagnosis for this admission?: Yes (3) Esophageal varices in alcoholic cirrhosis Is this a current diagnosis for this admission?: Yes Plan: He will continue with nadolol upon discharge (4) History of alcoholism Is this a current diagnosis for this admission?: Yes
[2019-04-14] MEDS ORDERED: LIDOCAINE 2% VISCOUS SOLN 20 ML UDCUP PO PRN (21:16)
--- NOTE | 2019-04-14 21:24 | Operative Report ---
Operative Report DATE OF SURGERY: 04/14/19 Operative Report: Pre-op diagnosis: Acute GI bleeding with history of esophageal varices Post-op diagnosis: Bleeding distal esophageal/cardia varices Surgery: Esophagogastroduodenoscopy with variceal rubber banding Medications: Versed 4mg Fentanyl 100mcg IV push Tissue removed: None Procedure: After informed consent obtained from patient, the throat was sprayed with Hurricane and conscious sedation was achieved. The upper endoscope was inserted into the esophagus under direct vision and advanced into the stomach. The duodenum was entered and examined to the second part. Endoscope was then slowly pulled out of the patient as the mucosa was examined into details. Patient tolerated procedure well. Findings Esophagus: 2 columns of varices were identified in the distal esophagus with the largest one extending into the cardia. There was active bleeding just below the Z line and this varix was rubber banded below the Z line and also in the esophagus. There was no active bleeding at the end of the procedure. Antrum: Evidence for portal gastropathy Body: Evidence of portal gastropathy Fundus: Normal Duodenum first part: Normal Duodenum second part: Normal Plan: Continue Sandostatin at 50 mcg an hour. Follow H&H. If he rebleeds he will need a Henny tube and transferred to a tertiary center for possible TIPS. OPERATION: .
[2019-04-14] MEDS ORDERED: PHYTONADIONE INJ 10 MG/1 ML AMPULE SUBCUT ONE (21:30)
[2019-04-14] MEDS: NORMAL SALINE 100 ML with PANTOPRAZOLE SODIUM 80 MG IV PRN ×2 (21:35)
[2019-04-14 22:49] LABS: HEMATOCRIT 33.3 % (37.9-51.0); HEMOGLOBIN 11.6 g/dL (13.5-17.0); MEAN CORPUSCULAR HEMOGLOBIN 36.1 pg (27.0-33.4); MEAN CORPUSCULAR HGB CONC 34.9 g/dL (32.0-36.0); MEAN CORPUSCULAR VOLUME 104 fl (80-97); PLATELET COUNT 149 10^3/uL (150-450); RED BLOOD COUNT 3.21 10^6/uL (4.35-5.55); WHITE BLOOD COUNT 12.7 10^3/uL (4.0-10.5)
[2019-04-15] MEDS: PANTOPRAZOLE SODIUM 40 MG VIAL IV SCH ×2 (00:31→11:04)
[2019-04-15 04:11] LABS: ABSOLUTE LYMPHOCYTES (AUTO) 0.7 10^3/uL (0.5-4.7); ABSOLUTE MONOCYTES (AUTO) 0.6 10^3/uL (0.1-1.4); ABSOLUTE NEUT (AUTO) 11.3 10^3/uL (1.7-8.2); BASOPHILS % (AUTO) 0.3 % (0-2); HEMATOCRIT 30.5 % (37.9-51.0); HEMOGLOBIN 10.7 g/dL (13.5-17.0); LYMPHOCYTES % (AUTO) 5.4 % (13-45); MEAN CORPUSCULAR HEMOGLOBIN 35.9 pg (27.0-33.4); MEAN CORPUSCULAR HGB CONC 35.2 g/dL (32.0-36.0); MEAN CORPUSCULAR VOLUME 102 fl (80-97); MONOCYTES % (AUTO) 4.9 % (3-13); PLATELET COUNT 136 10^3/uL (150-450); RED BLOOD COUNT 2.99 10^6/uL (4.35-5.55); RED CELL DISTRIBUTION WIDTH 13.2 % (11.5-14.0); SEGMENTED NEUTROPHILS % (AUTO) 89.4 % (42-78); TOTAL CELLS COUNTED % (AUTO) 100 %; WHITE BLOOD COUNT 12.6 10^3/uL (4.0-10.5)
[2019-04-15 04:36] LABS: ALBUMIN 2.8 g/dL (3.5-5.0); ALKALINE PHOSPHATASE 60 U/L (38-126); ANION GAP 7 (5-19); ASPARTATE AMINO TRANSFERASE 70 U/L (17-59); BILIRUBIN,DIRECT 1.2 mg/dL (0.0-0.4); BILIRUBIN,TOTAL 3.1 mg/dL (0.2-1.3); BLOOD UREA NITROGEN 27 mg/dL (7-20); CALCIUM 8.7 mg/dL (8.4-10.2); CARBON DIOXIDE 29 mmol/L (22-30); CHLORIDE 99 mmol/L (98-107); GLUCOSE 148 mg/dL (75-110); POTASSIUM 4.1 mmol/L (3.6-5.0); TOTAL PROTEIN 5.7 g/dL (6.3-8.2)
[2019-04-15] MEDS: CEFAZOLIN 1 GM/D5W RTU 1 GM/50 ML RTUPB IV SCH ×4 (05:36→17:12)
[2019-04-15] MEDS: NORMAL SALINE 500 ML with OCTREOTIDE ACETATE 500 MCG IV PRN ×4 (07:42→17:45)
[2019-04-15] MEDS ORDERED: NADOLOL 40 MG TABLET PO SCH (08:00)
[2019-04-15] MEDS ORDERED: (PENDING PHARMACY ID) (Nadolol [Corgard] 40 MG) PO SCH (08:00)
[2019-04-15] MEDS ORDERED: FUROSEMIDE 20 MG TABLET PO SCH (08:00)
[2019-04-15] MEDS: NORMAL SALINE 100 ML with PANTOPRAZOLE SODIUM 80 MG IV PRN ×4 (08:25→17:12)
[2019-04-15] MEDS: SUCRALFATE 1 GM TABLET PO SCH ×5 (08:29→23:57)
--- NOTE | 2019-04-15 08:49 | PDOC PROGRESS REPORT ---
Subjective Progress Note for:: 04/15/19 Subjective:: Patient is currently doing much better status post endoscopy and the ligation of the varices Patient's denied any chest pain to than any shortness of breath Patient's denied any nausea no vomiting no abdominal pain Low-grade fever Patient's and the bedside no other concern Reason For Visit: GI BLEEDING Physical Exam Vital Signs: Temp Pulse Resp BP Pulse Ox 100.0 F 85 21 H 99/60 L 95 04/15/19 05:34 04/14/19 22:41 04/15/19 07:28 04/15/19 07:28 04/15/19 07:28 Intake & Output 04/14/19 04/15/19 04/16/19 06:59 06:59 06:59 Intake Total 1877 552.5 Output Total 1000 Balance 877 552.5 Weight 102.4 kg General appearance: PRESENT: no acute distress, well-developed, well-nourished Head exam: PRESENT: atraumatic, normocephalic Eye exam: PRESENT: conjunctiva pink, EOMI, PERRLA. ABSENT: scleral icterus Ear exam: PRESENT: normal external ear exam Mouth exam: PRESENT: moist, tongue midline Neck exam: PRESENT: full ROM. ABSENT: carotid bruit, JVD, lymphadenopathy, thyromegaly Respiratory exam: PRESENT: clear to auscultation arnulfo Cardiovascular exam: PRESENT: RRR. ABSENT: diastolic murmur, rubs, systolic murmur Pulses: PRESENT: normal dorsalis pedis pul, +2 pedal pulses bilateral Vascular exam: PRESENT: normal capillary refill GI/Abdominal exam: PRESENT: normal bowel sounds, soft. ABSENT: distended, guarding, mass, organolmegaly, rebound, tenderness Rectal exam: PRESENT: deferred Neurological exam: PRESENT: alert, awake, oriented to person, oriented to place, oriented to time, oriented to situation, CN II-XII grossly intact. ABSENT: motor sensory deficit Psychiatric exam: PRESENT: appropriate affect, normal mood. ABSENT: homicidal ideation, suicidal ideation Skin exam: PRESENT: dry, intact, warm. ABSENT: cyanosis, rash Results Laboratory Results: 04/15/19 03:38 04/15/19 03:38 04/14/19 04/14/19 04/14/19 08:39 08:39 08:39 WBC 7.8 RBC 3.57 L Hgb 12.7 L Hct 36.5 L MCV 102 H MCH 35.6 H MCHC 34.8 RDW 13.0 Plt Count 172 Seg Neutrophils % 78.0 Lymphocytes % 13.5 Monocytes % 7.8 Eosinophils % 0.3 Basophils % 0.4 Absolute Neutrophils 6.1 Absolute Lymphocytes 1.1 Absolute Monocytes 0.6 Absolute Eosinophils 0.0 Absolute Basophils 0.0 Sodium 131.6 L Potassium 4.0 Chloride 91 L Carbon Dioxide 33 H Anion Gap 8 BUN 20 Creatinine 1.07 Est GFR ( Amer) > 60 Est GFR (Non-Af Amer) > 60 Glucose 137 H Calcium 9.2 Total Bilirubin 3.3 H AST 117 H Alkaline Phosphatase 84 Total Protein 6.5 Albumin 3.3 L Lipase 169.8 Blood Type AB NEGATIVE Antibody Screen NEGATIVE 04/14/19 04/14/19 04/14/19 20:15 20:15 22:21 WBC 11.4 H 12.7 H RBC 3.17 L 3.21 L Hgb 11.3 L 11.6 L Hct 32.5 L 33.3 L MCV 102 H 104 H MCH 35.8 H 36.1 H MCHC 34.9 34.9 RDW 13.2 13.0 Plt Count 166 149 L Seg Neutrophils % 72.1 Lymphocytes % 14.4 Monocytes % 12.5 Eosinophils % 0.6 Basophils % 0.4 Absolute Neutrophils 8.2 Absolute Lymphocytes 1.6 Absolute Monocytes 1.4 Absolute Eosinophils 0.1 Absolute Basophils 0.0 Sodium 132.5 L Potassium 3.9 Chloride 96 L Carbon Dioxide 30 Anion Gap 7 BUN 26 H Creatinine 1.05 Est GFR ( Amer) > 60 Est GFR (Non-Af Amer) > 60 Glucose 112 H Calcium 8.8 Total Bilirubin AST Alkaline Phosphatase Total Protein Albumin Lipase Blood Type Antibody Screen 04/15/19 04/15/19 03:38 03:38 WBC 12.6 H RBC 2.99 L Hgb 10.7 L Hct 30.5 L MCV 102 H MCH 35.9 H MCHC 35.2 RDW 13.2 Plt Count 136 L Seg Neutrophils % 89.4 H Lymphocytes % 5.4 L Monocytes % 4.9 Eosinophils % 0.0 Basophils % 0.3 Absolute Neutrophils 11.3 H Absolute Lymphocytes 0.7 Absolute Monocytes 0.6 Absolute Eosinophils 0.0 Absolute Basophils 0.0 Sodium 135.1 L Potassium 4.1 Chloride 99 Carbon Dioxide 29 Anion Gap 7 BUN 27 H Creatinine 1.05 Est GFR ( Amer) > 60 Est GFR (Non-Af Amer) > 60 Glucose 148 H Calcium 8.7 Total Bilirubin 3.1 H AST 70 H Alkaline Phosphatase 60 Total Protein 5.7 L Albumin 2.8 L Lipase Blood Type Antibody Screen Impressions: Acute Abdomen Series 04/14/19 08:39 IMPRESSION: NO RADIOGRAPHIC EVIDENCE FOR ACUTE ABDOMINAL DISEASE. Assessment & Plan - Diagnosis (1) Upper GI bleeding Is this a current diagnosis for this admission?: Yes Plan: Currently all stable status post endoscopies (2) Esophageal varices in alcoholic cirrhosis Is this a current diagnosis for this admission?: Yes Plan: Continues to Protonix drips (3) Alcoholic cirrhosis of liver Qualifiers: Ascites presence: without ascites Qualified Code(s): K70.30 - Alcoholic cirrhosis of liver without ascites Is this a current diagnosis for this admission?: Yes Plan: Continues to current medical management per gi (4) Rheumatoid arthritis Qualifiers: Rheumatoid arthritis location: multiple sites Is this a current diagnosis for this admission?: Yes Plan: Currently follow with the Dr. Romero outpatient instrument/control technician We currently hold the any NSAID The injections every 6-month (5) Chronic obstructive pulmonary disease Qualifiers: COPD type: unspecified COPD Qualified Code(s): J44.9 - Chronic obstructive pulmonary disease, unspecified Is this a current diagnosis for this admission?: Yes (6) Hypertension Qualifiers: Hypertension type: essential hypertension Qualified Code(s): I10 - Essential (primary) hypertension Is this a current diagnosis for this admission?: Yes Plan: Continues to current medications (7) Hyperlipidemia Qualifiers: Hyperlipidemia type: unspecified Qualified Code(s): E78.5 - Hyperlipidemia, unspecified Is this a current diagnosis for this admission?: No (8) History of alcoholism Is this a current diagnosis for this admission?: Yes Plan: Continues to banana bag continues the lorazepam as neededNo sign of any withdrawal - Time Time Spent with patient: 35 or more minutes Medications reviewed and adjusted accordingly: Yes Anticipated discharge: Home Within: Other - Plan Summary Plan Summary: Postprocedure patient has some low-grade fever currently on antibiotic we will get the chest x-ray and blood culture and urine culture Continues to Protonix drip and octreotide drips Follow with the GI This monitor for alcohol withdrawal continues to PRN medications
--- NOTE | 2019-04-15 09:34 | RADIOLOGY REPORT (SQ) ---
EXAM DESCRIPTION: CHEST SINGLE VIEW COMPLETED DATE/TIME: 04/15/2019 9:02 am REASON FOR STUDY: fever COMPARISON: None. EXAM PARAMETERS: NUMBER OF VIEWS: One view. TECHNIQUE: Single frontal radiographic view of the chest acquired. RADIATION DOSE: NA LIMITATIONS: None. FINDINGS: LUNGS AND PLEURA: No opacities, masses or pneumothorax. No pleural effusion. MEDIASTINUM AND HILAR STRUCTURES: No masses. Contour normal. HEART AND VASCULAR STRUCTURES: Heart normal in size. Normal vasculature. BONES: No acute findings. HARDWARE: Bone anchors overlie right humerus. OTHER: No other significant finding. IMPRESSION: NO ACUTE RADIOGRAPHIC FINDING IN THE CHEST. TECHNICAL DOCUMENTATION: JOB ID: [id number] [employer]- All Rights Reserved Reading location - IP/workstation name: [email or web address]
[2019-04-15] MEDS ORDERED: SPIRONOLACTONE 25 MG TABLET PO SCH (10:00)
[2019-04-15] MEDS: NORMAL SALINE 1000 ML 1,000 ML IV PRN ×2 (11:47→21:01)
[2019-04-15 15:37] LABS: ANION GAP 7 (5-19); BLOOD UREA NITROGEN 29 mg/dL (7-20); CALCIUM 8.1 mg/dL (8.4-10.2); CARBON DIOXIDE 29 mmol/L (22-30); CHLORIDE 100 mmol/L (98-107); GLUCOSE 166 mg/dL (75-110); POTASSIUM 4.2 mmol/L (3.6-5.0)
[2019-04-15] MEDS: NORMAL SALINE 1000 ML 1,000 ML with POTASSIUM CHLORIDE 20 MEQ, MAGNESIUM SULFATE 8 MEQ,... IV SCH ×5 (17:11)
[2019-04-15 23:16] LABS: BLOOD UREA NITROGEN 27 mg/dL (7-20); CALCIUM 7.9 mg/dL (8.4-10.2); GLUCOSE 135 mg/dL (75-110); POTASSIUM 4.1 mmol/L (3.6-5.0)
[2019-04-15 23:21] LABS: CARBON DIOXIDE 28 mmol/L (22-30); CHLORIDE 104 mmol/L (98-107)
[2019-04-15 23:22] LABS: ANION GAP 4 (5-19)
[2019-04-16] MEDS: NORMAL SALINE 100 ML with PANTOPRAZOLE SODIUM 80 MG IV PRN ×4 (01:52→18:19)
[2019-04-16] MEDS: NORMAL SALINE 500 ML with OCTREOTIDE ACETATE 500 MCG IV PRN ×4 (03:40→10:31)
[2019-04-16 04:19] LABS: ABSOLUTE EOSINOPHILS # (AUTO) 0.1 10^3/uL (0.0-0.6); ABSOLUTE LYMPHOCYTES (AUTO) 1.3 10^3/uL (0.5-4.7); ABSOLUTE NEUT (AUTO) 6.3 10^3/uL (1.7-8.2); BASOPHILS % (AUTO) 0.5 % (0-2); EOSINOPHILS % (AUTO) 1.6 % (0-6); HEMOGLOBIN 8.7 g/dL (13.5-17.0); LYMPHOCYTES % (AUTO) 15.3 % (13-45); MEAN CORPUSCULAR HEMOGLOBIN 36.3 pg (27.0-33.4); MEAN CORPUSCULAR VOLUME 104 fl (80-97); MONOCYTES % (AUTO) 11.5 % (3-13); RED BLOOD COUNT 2.41 10^6/uL (4.35-5.55); RED CELL DISTRIBUTION WIDTH 13.1 % (11.5-14.0); SEGMENTED NEUTROPHILS % (AUTO) 71.1 % (42-78); TOTAL CELLS COUNTED % (AUTO) 100 %; WHITE BLOOD COUNT 8.8 10^3/uL (4.0-10.5)
[2019-04-16 04:30] LABS: BLOOD UREA NITROGEN 26 mg/dL (7-20); CALCIUM 7.8 mg/dL (8.4-10.2); CARBON DIOXIDE 27 mmol/L (22-30); CHLORIDE 107 mmol/L (98-107); GLUCOSE 130 mg/dL (75-110); POTASSIUM 3.9 mmol/L (3.6-5.0)
[2019-04-16 04:36] LABS: ANION GAP 3 (5-19)
[2019-04-16 04:58] LABS: PLATELET COUNT 97 10^3/uL (150-450)
[2019-04-16] MEDS: SUCRALFATE 1 GM TABLET PO SCH ×5 (05:04→23:42)
[2019-04-16] MEDS: CEFAZOLIN 1 GM/D5W RTU 1 GM/50 ML RTUPB IV SCH ×5 (05:12→23:35)
[2019-04-16] MEDS: NORMAL SALINE 1000 ML 1,000 ML IV PRN (05:12)
--- NOTE | 2019-04-16 08:37 | PDOC PROGRESS REPORT ---
Subjective Progress Note for:: 04/16/19 Subjective:: Patient is feeling much better Abdominal pain no nausea no vomiting No bleeding episode Dr. Anderson taper the medications No sign of any alcohol withdrawal Reason For Visit: GI BLEEDING Physical Exam Vital Signs: Temp Pulse Resp BP Pulse Ox 99.0 F 85 16 118/65 99 04/16/19 05:40 04/15/19 20:51 04/16/19 06:58 04/16/19 06:58 04/16/19 06:58 Intake & Output 04/15/19 04/16/19 04/17/19 06:59 06:59 06:59 Intake Total 1877 6176.5 50 Output Total 1000 1055 110 Balance 877 5121.5 -60 Weight 102.4 kg 106.6 kg General appearance: PRESENT: no acute distress, well-developed, well-nourished Head exam: PRESENT: atraumatic, normocephalic Eye exam: PRESENT: conjunctiva pink, EOMI, PERRLA. ABSENT: scleral icterus Ear exam: PRESENT: normal external ear exam Mouth exam: PRESENT: moist, tongue midline Neck exam: PRESENT: full ROM. ABSENT: carotid bruit, JVD, lymphadenopathy, thyromegaly Respiratory exam: PRESENT: clear to auscultation arnulfo Cardiovascular exam: PRESENT: RRR. ABSENT: diastolic murmur, rubs, systolic murmur Pulses: PRESENT: normal dorsalis pedis pul, +2 pedal pulses bilateral Vascular exam: PRESENT: normal capillary refill GI/Abdominal exam: PRESENT: normal bowel sounds, soft. ABSENT: distended, guarding, mass, organolmegaly, rebound, tenderness Rectal exam: PRESENT: deferred Neurological exam: PRESENT: alert, awake, oriented to person, oriented to place, oriented to time, oriented to situation, CN II-XII grossly intact. ABSENT: motor sensory deficit Psychiatric exam: PRESENT: appropriate affect, normal mood. ABSENT: homicidal ideation, suicidal ideation Skin exam: PRESENT: dry, intact, warm. ABSENT: cyanosis, rash Results Laboratory Results: 04/16/19 03:50 04/16/19 03:50 04/14/19 04/15/19 04/15/19 08:39 15:03 22:24 WBC RBC Hgb Hct MCV MCH MCHC RDW Plt Count Seg Neutrophils % Lymphocytes % Monocytes % Eosinophils % Basophils % Absolute Neutrophils Absolute Lymphocytes Absolute Monocytes Absolute Eosinophils Absolute Basophils Sodium 135.5 L Cancelled Potassium 4.2 Cancelled Chloride 100 Cancelled Carbon Dioxide 29 Cancelled Anion Gap 7 Cancelled BUN 29 H Cancelled Creatinine 1.16 Cancelled Est GFR ( Amer) > 60 Cancelled Est GFR (Non-Af Amer) > 60 Cancelled Glucose 166 H Cancelled Calcium 8.1 L Cancelled Blood Type AB NEGATIVE Antibody Screen NEGATIVE 04/15/19 04/16/19 04/16/19 22:46 03:50 03:50 WBC 8.8 RBC 2.41 L Hgb 8.7 L Hct 25.0 L MCV 104 H MCH 36.3 H MCHC 35.0 RDW 13.1 Plt Count 97 L Seg Neutrophils % 71.1 Lymphocytes % 15.3 Monocytes % 11.5 Eosinophils % 1.6 Basophils % 0.5 Absolute Neutrophils 6.3 Absolute Lymphocytes 1.3 Absolute Monocytes 1.0 Absolute Eosinophils 0.1 Absolute Basophils 0.0 Sodium 135.7 L 136.8 L Potassium 4.1 3.9 Chloride 104 107 Carbon Dioxide 28 27 Anion Gap 4 L 3 L BUN 27 H 26 H Creatinine 0.99 0.96 Est GFR ( Amer) > 60 > 60 Est GFR (Non-Af Amer) > 60 > 60 Glucose 135 H 130 H Calcium 7.9 L 7.8 L Blood Type Antibody Screen Impressions: Acute Abdomen Series 04/14/19 08:39 IMPRESSION: NO RADIOGRAPHIC EVIDENCE FOR ACUTE ABDOMINAL DISEASE. Chest X-Ray 04/15/19 00:00 IMPRESSION: NO ACUTE RADIOGRAPHIC FINDING IN THE CHEST. Assessment & Plan - Diagnosis (1) Upper GI bleeding Is this a current diagnosis for this admission?: Yes Plan: Status post endoscopy and ligations currently all stable (2) Esophageal varices in alcoholic cirrhosis Is this a current diagnosis for this admission?: Yes Plan: Continues to Protonix drips (3) Alcoholic cirrhosis of liver Qualifiers: Ascites presence: without ascites Qualified Code(s): K70.30 - Alcoholic cirrhosis of liver without ascites Is this a current diagnosis for this admission?: Yes Plan: Continues to current medical management per gi (4) Rheumatoid arthritis Qualifiers: Rheumatoid arthritis location: multiple sites Is this a current diagnosis for this admission?: Yes Plan: Currently follow with the Dr. Romero outpatient operating system programmer We currently hold the any NSAID The injections every 6-month (5) Chronic obstructive pulmonary disease Qualifiers: COPD type: unspecified COPD Qualified Code(s): J44.9 - Chronic obstructive pulmonary disease, unspecified Is this a current diagnosis for this admission?: Yes Plan: Continues to PRN nebulizer treatments (6) Hypertension Qualifiers: Hypertension type: essential hypertension Qualified Code(s): I10 - Essential (primary) hypertension Is this a current diagnosis for this admission?: Yes Plan: Continues to current medications (7) Hyperlipidemia Qualifiers: Hyperlipidemia type: unspecified Qualified Code(s): E78.5 - Hyperlipidemia, unspecified Is this a current diagnosis for this admission?: No (8) History of alcoholism Is this a current diagnosis for this admission?: Yes Plan: Continues to banana bag continues the lorazepam as neededNo sign of any withdrawal - Time Time Spent with patient: 15-24 minutes Medications reviewed and adjusted accordingly: Yes Anticipated discharge: Home Within: within 24 hours - Plan Summary Plan Summary: We will continue to follow with the GI Discussed with the patient and the and the bedside DC the Quan catheter Consider blood transfusion if is still low hemoglobin physical therapy evaluations
[2019-04-16 09:12] LABS: HEMATOCRIT 27.7 % (37.9-51.0); HEMOGLOBIN 9.6 g/dL (13.5-17.0); MEAN CORPUSCULAR HEMOGLOBIN 35.7 pg (27.0-33.4); MEAN CORPUSCULAR HGB CONC 34.6 g/dL (32.0-36.0); MEAN CORPUSCULAR VOLUME 103 fl (80-97); PLATELET COUNT 100 10^3/uL (150-450); RED BLOOD COUNT 2.69 10^6/uL (4.35-5.55); RED CELL DISTRIBUTION WIDTH 13.4 % (11.5-14.0); WHITE BLOOD COUNT 9.3 10^3/uL (4.0-10.5)
[2019-04-16] MEDS ORDERED: NADOLOL 40 MG TABLET PO SCH (10:00)
[2019-04-16] MEDS ORDERED: SUCRALFATE 1 GM TABLET PO SCH (18:00)
[2019-04-17 05:24] LABS: ABSOLUTE EOSINOPHILS # (AUTO) 0.3 10^3/uL (0.0-0.6); ABSOLUTE LYMPHOCYTES (AUTO) 1.3 10^3/uL (0.5-4.7); ABSOLUTE MONOCYTES (AUTO) 0.9 10^3/uL (0.1-1.4); ABSOLUTE NEUT (AUTO) 5.3 10^3/uL (1.7-8.2); BASOPHILS % (AUTO) 0.5 % (0-2); EOSINOPHILS % (AUTO) 3.6 % (0-6); HEMATOCRIT 25.6 % (37.9-51.0); HEMOGLOBIN 8.9 g/dL (13.5-17.0); LYMPHOCYTES % (AUTO) 16.6 % (13-45); MEAN CORPUSCULAR HGB CONC 34.7 g/dL (32.0-36.0); MEAN CORPUSCULAR VOLUME 104 fl (80-97); MONOCYTES % (AUTO) 11.9 % (3-13); PLATELET COUNT 109 10^3/uL (150-450); RED BLOOD COUNT 2.46 10^6/uL (4.35-5.55); RED CELL DISTRIBUTION WIDTH 13.1 % (11.5-14.0); SEGMENTED NEUTROPHILS % (AUTO) 67.4 % (42-78); TOTAL CELLS COUNTED % (AUTO) 100 %; WHITE BLOOD COUNT 7.9 10^3/uL (4.0-10.5)
[2019-04-17] MEDS: SUCRALFATE 1 GM TABLET PO SCH (05:24)
[2019-04-17] MEDS: CEFAZOLIN 1 GM/D5W RTU 1 GM/50 ML RTUPB IV SCH (05:25)
[2019-04-17] MEDS: NORMAL SALINE 100 ML with PANTOPRAZOLE SODIUM 80 MG IV PRN ×2 (05:27)
[2019-04-17 05:31] LABS: ANION GAP 5 (5-19); BLOOD UREA NITROGEN 21 mg/dL (7-20); CALCIUM 8.1 mg/dL (8.4-10.2); GLUCOSE 121 mg/dL (75-110); POTASSIUM 3.8 mmol/L (3.6-5.0)
[2019-04-17 05:37] LABS: CARBON DIOXIDE 26 mmol/L (22-30); CHLORIDE 106 mmol/L (98-107)
[2019-04-17] MEDS ORDERED: NADOLOL 40 MG TABLET PO SCH (10:00)
[2019-04-17] MEDS ORDERED: FUROSEMIDE 20 MG TABLET PO SCH (10:00)
[2019-04-17] MEDS ORDERED: PANTOPRAZOLE SODIUM 40 MG TABLET.DR PO SCH (10:00)
[2019-04-17 12:41] VITALS: BP 114/65
--- NOTE | 2019-04-17 13:23 | PDOC DISCHARGE SUMMARY ---
General - Admit/Disc Date/PCP Admission Date/Primary Care Provider: 04/14/19 12:28 MELANIE SALEEM MD Discharge Date: 04/17/19 - Discharge Diagnosis (1) Upper GI bleeding Is this a current diagnosis for this admission?: Yes Summary: From esophageal varicesStatus post ligationFollow with Dr. 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 Nadolol [Corgard 40 mg Tablet] 40 mg PO DAILY #30 tablet Pantoprazole Sodium [Protonix [address] Tablet] 40 mg PO BID #60 tablet. Sucralfate [Carafate 1 gm Tablet] 1 gm PO Q6 #120 tablet Home Medications: Furosemide [Lasix 20 mg Tablet] 20 mg PO QAM 04/14/19 Spironolactone [Aldactone 25 mg Tablet] 25 mg PO DAILY 04/14/19 Ferrous Sulfate 325 mg PO DAILY #30 tablet. 04/17/19 Nadolol [Corgard 40 mg Tablet] 40 mg PO DAILY #30 tablet 04/17/19 Pantoprazole Sodium [Protonix [address] Tablet] 40 mg PO BID #60 tablet. 04/17/19 Sucralfate [Carafate 1 gm Tablet] 1 gm PO Q6 #120 tablet 04/17/19 History of Present Illness History of Present Illness: KIRK CHINCHILLA is a 63 year old male Is a 63-year-old male with a history of alcoholic cirrhosis of the liver history of the esophageal varices history of the hypertension hyperlipidemia and history of the rheumatoid arthritis came to the emergency department complaining of a black tarry stool in patients also throughout with some red blood couple of times Patient's denied any abdominal pain no nausea but vomited as above. .Patient's also currently see a Dr. Anderson last endoscopy was done in 2018 with so some mild psoriasis Patient also see Dr. Romero for rheumatoid arthritis is not getting the every 6- month injections In the emergency department patient initial work-up positive for guaiac stool and patient hemoglobin is stable Patient is denied any chest pain to than any shortness of the breath At this point discussed with Dr. Anderson decided to admit keep n.p.o. and possible need a further scope Patient's claimed that he drinks some alcohol this weekend and I believe that triggered the things patient's serum alcohol level is low Hospital Course Hospital Course: This is a 63-year-old male's with the alcoholic cirrhosis of the liver history of the alcoholism presenting the emergency department with the black tarry stool with the vomited up in the blood Patient's admitting in the hospital underwent for the endoscopy by Dr. Anderson and the ligate the esophageal varices Patient was kept in the ICU for 24 hours patient was started on a Protonix drip and octreotide drips and patient response very well patient's transfer to the regular floor Patient start p.o. intake no more bleeding no abdominal pain no nausea no vomiting patient's walk with the physical therapy no other issues Discussed with the Monica seen by him today in the morning and suggested discharge and follow-up outpatient he will re-ligate in 1 month Discussed with the patient's and the son on the bedside today regarding the patient's current condition follow-up Discuss about avoid all NSAID and avoid all alcohol Patient hemoglobin was 8.9 started on iron tablet does not require any blood transfusions Physical Exam Vital Signs: Temp Pulse Resp BP Pulse Ox 97.9 F 64 17 114/65 97 04/17/19 12:39 04/17/19 12:39 04/17/19 12:39 04/17/19 12:39 04/17/19 12:39 Intake & Output 04/16/19 04/17/19 04/18/19 06:59 06:59 06:59 Intake Total 6176.5 630 Output Total 1055 935 Balance 5121.5 -305 Weight 106.6 kg 108 kg General appearance: PRESENT: no acute distress, well-developed, well-nourished Head exam: PRESENT: atraumatic, normocephalic Eye exam: PRESENT: conjunctiva pink, EOMI, PERRLA. ABSENT: scleral icterus Ear exam: PRESENT: normal external ear exam Mouth exam: PRESENT: moist, tongue midline Neck exam: PRESENT: full ROM. ABSENT: carotid bruit, JVD, lymphadenopathy, thyromegaly Respiratory exam: PRESENT: clear to auscultation arnulfo Cardiovascular exam: PRESENT: RRR. ABSENT: diastolic murmur, rubs, systolic murmur Pulses: PRESENT: normal dorsalis pedis pul, +2 pedal pulses bilateral Vascular exam: PRESENT: normal capillary refill GI/Abdominal exam: PRESENT: normal bowel sounds, soft. ABSENT: distended, guarding, mass, organolmegaly, rebound, tenderness Rectal exam: PRESENT: deferred Musculoskeletal exam: PRESENT: ambulatory Neurological exam: PRESENT: alert, awake, oriented to person, oriented to place, oriented to time, oriented to situation, CN II-XII grossly intact. ABSENT: motor sensory deficit Psychiatric exam: PRESENT: appropriate affect, normal mood. ABSENT: homicidal ideation, suicidal ideation Skin exam: PRESENT: dry, intact, warm. ABSENT: cyanosis, rash Results Laboratory Results: 04/17/19 04:29 04/17/19 04:29 04/17/19 04/17/19 04:29 04:29 WBC 7.9 RBC 2.46 L Hgb 8.9 L Hct 25.6 L MCV 104 H MCH 36.0 H MCHC 34.7 RDW 13.1 Plt Count 109 L Seg Neutrophils % 67.4 Lymphocytes % 16.6 Monocytes % 11.9 Eosinophils % 3.6 Basophils % 0.5 Absolute Neutrophils 5.3 Absolute Lymphocytes 1.3 Absolute Monocytes 0.9 Absolute Eosinophils 0.3 Absolute Basophils 0.0 Sodium 137.1 Potassium 3.8 Chloride 106 Carbon Dioxide 26 Anion Gap 5 BUN 21 H Creatinine 0.86 Est GFR ( Amer) > 60 Est GFR (Non-Af Amer) > 60 Glucose 121 H Calcium 8.1 L 04/15/19 12:20 Quan Catheter Urine Culture - Final NO GROWTH 2 DAYS Impressions: Acute Abdomen Series 04/14/19 08:39 IMPRESSION: NO RADIOGRAPHIC EVIDENCE FOR ACUTE ABDOMINAL DISEASE. Chest X-Ray 04/15/19 00:00 IMPRESSION: NO ACUTE RADIOGRAPHIC FINDING IN THE CHEST. Qualifiers - * PATIENT BEING DISCHARGED WITH ANY OF THE FOLLOWING DIAGNOSIS: No Acute Heart Failure - Is this a Heart Failure Patient?: No Plan Time Spent: Greater than 30 Minutes - Follow in office 1 week repeat the CBC and Chem-[address] Anderson
[2019-04-17] MEDS ORDERED: ONDANSETRON HCL INJ/PF 4 MG/2 ML SDV IV PRN (14:30)
== END 2019-04-17 13:27 | disposition home or self-care (01) | DRG 432 ==
LOC: ER 08:18 → EH 12:28 → 4N 14:21 → ICU 19:48 → 3S 04-16 20:34
PROVIDERS: ADMIT Family Medicine; ATTEND Family Medicine
PROC: 30233K1 Transfusion of Nonautologous Frozen Plasma into Peripheral Vein, Percutaneous Approach (ICD-10-PCS; 2019-04-14)
PROC: 06L38CZ Occlusion of Esophageal Vein with Extraluminal Device, Via Natural or Artificial Opening Endoscopic (ICD-10-PCS; principal; 2019-04-14 20:26)
DX: K70.30 Alcoholic cirrhosis of liver without ascites (principal); I85.11 Secondary esophageal varices with bleeding; J44.9 Chronic obstructive pulmonary disease, unspecified; K21.9 Gastro-esophageal reflux disease without esophagitis; I10 Essential (primary) hypertension; M06.9 Rheumatoid arthritis, unspecified; F10.20 Alcohol dependence, uncomplicated; F17.210 Nicotine dependence, cigarettes, uncomplicated; Y90.0 Blood alcohol level of less than 20 mg/100 ml
CPT/HCPCS: 36415; 36430; 43244; 71045; 74022; 80048; 80053; 80307; 83690; 85025; 85610; 85730; 86850; 86900; 86901; 87040; 87086; 96361; 96374; 99285; J0171; J0690; J1200; J1610; J2250; J2310; J2354; J2405; J3010; J3411; J3475; J3480; J3490; J7030; J7040; J7050; P9017; S0164

== ENCOUNTER 2019-05-13 14:55 | Day surgery (SDC) | payer BC ==
[2019-05-13] MEDS ORDERED: FENTANYL CITRATE INJ/PF 100 MCG/2 ML AMPUL ONE (16:19)
[2019-05-13] MEDS ORDERED: MIDAZOLAM 2 MG/2 ML INJ ONE (16:19)
[2019-05-13] MEDS ORDERED: ONDANSETRON HCL INJ/PF 4 MG/2 ML SDV ONE (16:19)
[2019-05-13] MEDS ORDERED: DIPHENHYDRAMINE HCL 50 MG/ML VIAL ONE (16:19)
[2019-05-13] MEDS ORDERED: GLUCAGON,HUMAN RECOMB 1 MG INJ ONE (16:20)
[2019-05-13] MEDS ORDERED: FLUMAZENIL INJ 0.5 MG/5 ML VIAL ONE (16:20)
[2019-05-13] MEDS ORDERED: NALOXONE HCL INJ/PF 0.4 MG/1 ML SDV ONE (16:20)
[2019-05-13] MEDS ORDERED: EPINEPHRINE INJ 1 MG/10 ML DISP.SYRIN ONE (16:20)
[2019-05-13] MEDS ORDERED: MIDAZOLAM 2 MG/2 ML INJ IV ONE ×3 (16:35→16:41)
[2019-05-13] MEDS ORDERED: FENTANYL CITRATE INJ/PF 50 MCG/1 ML 50 ML SDV IV ONE ×2 (16:35→16:39)
--- NOTE | 2019-05-13 17:08 | Operative Report ---
Operative Report DATE OF SURGERY: 05/13/19 Operative Report: Pre-op diagnosis: History of cirrhosis, esophageal varices and recent variceal bleed Post-op diagnosis: 1. Esophageal varices 2. Portal gastropathy Surgery: Esophagogastroduodenoscopy with variceal rubber banding Medications: Versed 5mg Fentanyl 100 Mcg IV push Tissue removed: None Procedure: After informed consent obtained from patient, the throat was sprayed with Hurricane and conscious sedation was achieved. The upper endoscope was inserted into the esophagus under direct vision and advanced into the stomach. The duodenum was entered and examined to the second part. Endoscope was then slowly pulled out of the patient as the mucosa was examined into details. Patient tolerated procedure well. Findings Esophagus: There was a moderate sized short varices noted in the distal 5 cm of the esophagus with some scarring from the recent variceal rubber banding. 3 rubber bands were placed Antrum: Evidence of portal gastropathy Body: Evidence for portal gastropathy Fundus: Normal. No varices noted Duodenum first part: Normal Duodenum second part: Normal Plan: Continue nadolol and repeat EGD with banding in 2-3 months OPERATION: .
[2019-05-13 18:22] VITALS: BP 176/88
== END 2019-05-13 18:05 | disposition home or self-care (01) ==
LOC: END 14:55
PROVIDERS: ATTEND Internal Medicine Gastroenterology
DX: K70.31 Alcoholic cirrhosis of liver with ascites (principal); I85.01 Esophageal varices with bleeding; K76.6 Portal hypertension; K31.89 Other diseases of stomach and duodenum; I10 Essential (primary) hypertension; E78.00 Pure hypercholesterolemia, unspecified; K70.0 Alcoholic fatty liver; F10.20 Alcohol dependence, uncomplicated; R60.0 Localized edema; Z79.51 Long term (current) use of inhaled steroids; Z79.899 Other long term (current) drug therapy
CPT/HCPCS: 43244; J2250; J3010; J0171; J1200; J1610; J2310; J2405; J3490

== ENCOUNTER 2019-06-24 15:04 | Day surgery (SDC) | payer BC ==
[2019-06-24] MEDS ORDERED: DIPHENHYDRAMINE HCL 50 MG/ML VIAL ONE (15:09)
[2019-06-24] MEDS ORDERED: ONDANSETRON HCL INJ/PF 4 MG/2 ML SDV ONE (15:09)
[2019-06-24] MEDS ORDERED: FENTANYL CITRATE INJ/PF 100 MCG/2 ML AMPUL ONE (15:09)
[2019-06-24] MEDS ORDERED: GLUCAGON,HUMAN RECOMB 1 MG INJ ONE (15:10)
[2019-06-24] MEDS ORDERED: FLUMAZENIL INJ 0.5 MG/5 ML VIAL ONE (15:10)
[2019-06-24] MEDS ORDERED: EPINEPHRINE INJ 1 MG/10 ML DISP.SYRIN ONE (15:10)
[2019-06-24] MEDS ORDERED: NALOXONE HCL INJ/PF 0.4 MG/1 ML SDV ONE (15:10)
[2019-06-24] MEDS: MIDAZOLAM 2 MG/2 ML INJ ONE ×2 (16:34→16:43)
--- NOTE | 2019-06-24 16:58 | Operative Report ---
Operative Report DATE OF SURGERY: 06/24/19 Operative Report: Pre-op diagnosis: History of cirrhosis, esophageal varices and previous banding Post-op diagnosis: Esophageal varices Surgery: Esophagogastroduodenoscopy with variceal rubber banding Medications: Versed 3mg Fentanyl 100mcg IV push Tissue removed: None Procedure: After informed consent obtained from patient, the throat was sprayed with Hurricane and conscious sedation was achieved. The upper endoscope was inserted into the esophagus under direct vision and advanced into the stomach. The duodenum was entered and examined to the second part. Endoscope was then slowly pulled out of the patient as the mucosa was examined into details. Patient tolerated procedure well. Findings Esophagus: 2 short varices were noted in the distal esophagus with areas of scarring. 2 rubber bands were placed. Antrum: Normal Body: Evidence for portal gastropathy Fundus: Normal Duodenum first part: Normal Duodenum second part: Normal Plan: Repeat EGD in 6 months OPERATION: .
[2019-06-24] MEDS ORDERED: SIMETHICONE 80 MG TAB.CHEW ONE (17:26)
[2019-06-24 17:54] VITALS: BP 154/86
== END 2019-06-24 17:55 | disposition home or self-care (01) ==
LOC: END 15:04
PROVIDERS: ATTEND Internal Medicine Gastroenterology
DX: I85.01 Esophageal varices with bleeding (principal); K70.0 Alcoholic fatty liver; K70.30 Alcoholic cirrhosis of liver without ascites; K76.6 Portal hypertension; R60.0 Localized edema; I10 Essential (primary) hypertension; E78.00 Pure hypercholesterolemia, unspecified; Z79.51 Long term (current) use of inhaled steroids; Z79.899 Other long term (current) drug therapy
CPT/HCPCS: 43244; J2250; J3010; J0171; J1200; J1610; J2310; J2405; J3490

== ENCOUNTER → 2019-09-15 | Outpatient (CLI) | payer BC ==
--- NOTE | 2019-09-15 13:53 | RADIOLOGY REPORT (SQ) ---
EXAM DESCRIPTION: CT ABDOMEN WITH IV ORAL CONT COMPLETED DATE/TIME: 09/15/2019 1:09 pm REASON FOR STUDY: (R16.0)HEPATOMEGALY, NOT ELSEWHERE CLASSIFIED; R16.0 HEPATOMEGALY, NOT ELSEWHERE CLASSIFIED K70.30 ALCOHOLIC CIRRHOSIS OF LIVER WITHOUT ASCITES I81 PORTAL VEIN THROMBOSIS COMPARISON: 06/27/2018 TECHNIQUE: CT scan of the abdomen performed with intravenous and with oral contrast using helical sc anning technique with dynamic intravenous contrast injection. Images reviewed with lung, soft tissue, and bone windows. Reconstructed coronal and sagittal MPR images reviewed. Delayed images for evaluat ion of the urinary system also acquired and evaluated. All images stored on PACS. All CT scanners at this facility use dose modulation, iterative reconstruc tion, and/or weight based dosing when appropriate to reduce radiation dose to as low as reasonably ac hievable (ALARA). [facility]: Dose Right [facility]: CareDose [facility]: Dose Right [facility]: Teradose 4D [facility]: RoomClip CONTRAST TYPE AND DOSE: contrast/concentration: Isovue 350.00 mg/ml; Total Contrast Delivered: 99.0 ml; Total Saline Delivered: 35.5 ml RENAL FUNCTION: Creatinine 1.0 RADIATION DOSE: CT Rad equipment meets quality standard of care and radiation dose reduction techniq ues were employed. CTDIvol: 18.7 - 20.7 mGy. DLP: 1298 mGy-cm. . LIMITATIONS: None. FINDINGS: LOWER CHEST: No significant findings. No nodules or infiltrates. LIVER: The liver demonstrates a slightly nodular contour. Mild heterogeneous enhancement. The liver measures 18.2 cm in cranial caudal dimensions. SPLEEN: Normal size. No focal lesions. PANCREAS: No masses. No significant calcifications. No adjacent inflammation or peripancreatic fluid collections. Pancreatic duct not dilated. GALLBLADDER: Surgically absent. ADRENAL GLANDS: No significant masses or asymmetry. RIGHT KIDNEY AND URETER: Multiple right renal cysts. No solid masses. Mild perinephric stranding wh ich is unchanged. No significant calcifications. No hydronephrosis or hydroureter. LEFT KIDNEY AND URETER: Multiple left renal cysts. Mild left perinephric stranding. No significant calcifications. No hydronephrosis or hydroureter. AORTA AND VESSELS: No aneurysm. No dissection. Renal arteries, SMA, celiac without stenosis. Numerou s varicosities in the lower abdomen consistent with portal hypertension. RETROPERITONEUM: No retroperitoneal adenopathy, hemorrhage or masses. BOWEL AND PERITONEAL CAVITY: No masses or inflammatory change. Ascites previously noted has largely resolved. There is thickening of the right and left lateral conal fascia. Infrequent diverticuli ar e noted. APPENDIX: Not visualized. ABDOMINAL WALL: There is an umbilical hernia containing omental fat only. BONES: No significant or acute findings. OTHER: No other significant finding. IMPRESSION: Hepatomegaly with evidence of cirrhosis and portal hypertension. Significant decrease in amount of ascites when compared to prior study. Stable bilateral renal cysts. TECHNICAL DOCUMENTATION: JOB ID: [id number] Quality ID # 436: Final reports with documentation of one or more dose reduction techniques (e.g., Au tomated exposure control, adjustment of the mA and/or kV according to patient size, use of iterative reconstruction technique) 2010 [employer]- All Rights Reserved Reading location - IP/workstation name: [email or web address]
== END ==
LOC: RAD 12:30
PROVIDERS: ATTEND Internal Medicine Gastroenterology
DX: K70.30 Alcoholic cirrhosis of liver without ascites (principal); K76.6 Portal hypertension; I81 Portal vein thrombosis; R16.0 Hepatomegaly, not elsewhere classified; Q61.02 Congenital multiple renal cysts
CPT/HCPCS: 74160; 82565

== ENCOUNTER → 2020-02-03 | Outpatient (CLI) | payer BC ==
[2020-02-03 15:34] LABS: INTERNATIONAL RATION (INR) 1.22; PROTHROMBIN TIME 15.5 SEC (11.4-15.4)
[2020-02-03 15:35] LABS: HEMATOCRIT 38.5 % (37.9-51.0); HEMOGLOBIN 13.9 g/dL (13.5-17.0); MEAN CORPUSCULAR HEMOGLOBIN 34.9 pg (27.0-33.4); MEAN CORPUSCULAR VOLUME 97 fl (80-97); RED BLOOD COUNT 3.97 10^6/uL (4.35-5.55); RED CELL DISTRIBUTION WIDTH 13.1 % (11.5-14.0); WHITE BLOOD COUNT 5.5 10^3/uL (4.0-10.5)
[2020-02-03 15:47] LABS: ALBUMIN 3.9 g/dL (3.5-5.0); ALKALINE PHOSPHATASE 132 U/L (38-126); ANION GAP 8 (5-19); ASPARTATE AMINO TRANSFERASE 181 U/L (17-59); BILIRUBIN,DIRECT 0.8 mg/dL (0.0-0.4); BILIRUBIN,TOTAL 2.1 mg/dL (0.2-1.3); BLOOD UREA NITROGEN 11 mg/dL (7-20); CALCIUM 9.8 mg/dL (8.4-10.2); CARBON DIOXIDE 28 mmol/L (22-30); CHLORIDE 93 mmol/L (98-107); GLUCOSE 107 mg/dL (75-110); POTASSIUM 4.4 mmol/L (3.6-5.0); TOTAL PROTEIN 7.5 g/dL (6.3-8.2)
[2020-02-03 16:11] LABS: PLATELET COUNT 88 10^3/uL (150-450)
== END ==
LOC: OD 14:10
PROVIDERS: ATTEND Internal Medicine Gastroenterology
DX: I85.00 Esophageal varices without bleeding (principal); K70.30 Alcoholic cirrhosis of liver without ascites; K92.0 Hematemesis
CPT/HCPCS: 36415; 80053; 85027; 85610; 86850; 86900; 86901

== ENCOUNTER 2020-02-06 12:22 | Day surgery (SDC) | payer BC ==
[~2020-02-06 12:22] MED LIST: LIDOCAINE 2% INJ-PF (20 MG/ML) 10 ML AMPUL ONE; PROPOFOL INJ 200 MG/20 ML VIAL IV ONE
--- NOTE | 2020-02-06 15:24 | Operative Report ---
Operative Report DATE OF SURGERY: 02/06/20 Operative Report: Pre-op diagnosis: History of cirrhosis, esophageal varices and recent hematemesis Post-op diagnosis: Small esophageal varices Surgery: Esophagogastroduodenoscopy with variceal rubber banding Medications: As per anesthesia Tissue removed: None Procedure: After informed consent obtained from patient, the throat was sprayed with Hurricane and conscious sedation was achieved. The upper endoscope was inserted into the esophagus under direct vision and advanced into the stomach. The duodenum was entered and examined to the second part. Endoscope was then slowly pulled out of the patient as the mucosa was examined into details. Patient tolerated procedure well. Findings Esophagus: There was scarring at the distal 3 cm of the esophagus from previous rubber banding. There were 2 small columns of varix in the distal to mid esophagus. 2 rubber bands were applied. Antrum: Normal Body: Normal Fundus: Normal Duodenum first part: Normal Duodenum second part: Normal Plan: Continue propanolol. Preoperative examination showed a 3 cm nontender mass in the right breast. He has had this lesion for about a year. he will be referred to a surgeon OPERATION: .
[2020-02-06 17:06] VITALS: BP 151/78
== END 2020-02-06 16:15 | disposition home or self-care (01) ==
LOC: OROUT 12:22
PROVIDERS: ATTEND Internal Medicine Gastroenterology
DX: I85.01 Esophageal varices with bleeding (principal); I85.10 Secondary esophageal varices without bleeding; K76.6 Portal hypertension; Z79.899 Other long term (current) drug therapy; E78.00 Pure hypercholesterolemia, unspecified; K76.0 Fatty (change of) liver, not elsewhere classified; J44.9 Chronic obstructive pulmonary disease, unspecified; I10 Essential (primary) hypertension; Z88.5 Allergy status to narcotic agent; Z87.891 Personal history of nicotine dependence; K74.60 Unspecified cirrhosis of liver; M06.9 Rheumatoid arthritis, unspecified; Z03.818 Encounter for observation for suspected exposure to other biological agents ruled out
CPT/HCPCS: 43244; 87635; 00731; J2704; J3490; C9803; 731

== ENCOUNTER → 2020-02-17 | Outpatient (CLI) | payer BC ==
--- NOTE | 2020-02-17 16:01 | WOMENS IMAGING REPORT ---
EXAM DESCRIPTION: BILAT DIAGNOSTIC MAMMO W/CAD; U/S BREAST UNILAT LIMITED IMAGES COMPLETED DATE/TIME: 02/17/2020 8:57 am; 02/17/2020 9:34 am REASON FOR STUDY: N63.0 UNSPECIFIED LUMP IN BREAST; N63.0 RIGHT BREAST N63.0 UNSPECIFIED LUMP IN UN SPECIFIED BREAST COMPARISON: None. EXAM PARAMETERS: Standard craniocaudal and mediolateral oblique views of each breast recorded using digital acquisition. Additionally, focused sonographic evaluation was performed of the right breast and right axilla. Read with the assistance of CAD: .[facility] - [employer] Sales Representative Version 9.2 LIMITATIONS: None. FINDINGS: RIGHT BREAST MASSES: There is a large predominantly well-circumscribed subareolar mass which correlates to the pat ient's palpable abnormality. Targeted breast ultrasound demonstrates irregularly marginated hypoecho ic structure with demonstrated vascularity. CALCIFICATIONS: No new or suspicious calcifications. ARCHITECTURAL DISTORTION: None. ASYMMETRY: None noted. OTHER: Within the right axilla, there is a 1.6 x 2.1 x 1.6 cm lymph node demonstrating a thickened co rtex. A smaller, normal morphology lymph node is seen immediately adjacent to finding. LEFT BREAST MASSES: No suspicious masses. Targeted sonographic evaluation demonstrates a tiny simple cyst. CALCIFICATIONS: No new or suspicious calcifications. ARCHITECTURAL DISTORTION: None. ASYMMETRY: There flame shaped subareolar densities without focal mass. OTHER: No other significant finding. IMPRESSION: Right subareolar mass with right axillary lymphadenopathy. BREAST DENSITY: a. The breasts are almost entirely fatty. BIRAD: ASSESSMENT: 4 Suspicious. Biopsy of both the right breast mass and right axillary lymph node should be performed in the absence of clinical contra-indication. RECOMMENDATION: RECOMMENDED FOLLOW UP: Birads 4: Biopsy should be performed in the absence of clinic al contraindication. SPECIFIC INTERVENTION/IMAGING/CONSULTATION RECOMMENDED:The suspicious finding(s) amenable to US guide d core/vacuum assisted biopsy. COMMUNICATION:Imaging findings are recommendations were discussed with the patient at the time of ashley luation. COMMENT: The patient has been notified of the results by letter per MQSA requirements. Additional no tification policies are in place for contacting patient with suspicious or incomplete findings. Quality ID #225: The [employer] recommends an annual screening mammogram for women aged 40 years or over. This facility utilizes a reminder system to ensure that all patients receive reminder letters, and/or direct phone calls for appointments. This includes reminders for routine scr eening mammograms, diagnostic mammograms, or other Breast Imaging Interventions when appropriate. Th is patient will be placed in the appropriate reminder system. TECHNICAL DOCUMENTATION: FINDING NUMBER: (1) ASSESSMENT: (1) JOB ID: [id number] 2010 [employer]- All Rights Reserved Reading location - IP/workstation name: [email or web address]
--- NOTE | 2020-02-17 16:01 | WOMENS IMAGING REPORT ---
EXAM DESCRIPTION: BILAT DIAGNOSTIC MAMMO W/CAD; U/S BREAST UNILAT LIMITED IMAGES COMPLETED DATE/TIME: 02/17/2020 8:57 am; 02/17/2020 9:34 am REASON FOR STUDY: N63.0 UNSPECIFIED LUMP IN BREAST; N63.0 RIGHT BREAST N63.0 UNSPECIFIED LUMP IN UN SPECIFIED BREAST COMPARISON: None. EXAM PARAMETERS: Standard craniocaudal and mediolateral oblique views of each breast recorded using digital acquisition. Additionally, focused sonographic evaluation was performed of the right breast and right axilla. Read with the assistance of CAD: .[facility] - [employer] Analyst Version 9.2 LIMITATIONS: None. FINDINGS: RIGHT BREAST MASSES: There is a large predominantly well-circumscribed subareolar mass which correlates to the pat ient's palpable abnormality. Targeted breast ultrasound demonstrates irregularly marginated hypoecho ic structure with demonstrated vascularity. CALCIFICATIONS: No new or suspicious calcifications. ARCHITECTURAL DISTORTION: None. ASYMMETRY: None noted. OTHER: Within the right axilla, there is a 1.6 x 2.1 x 1.6 cm lymph node demonstrating a thickened co rtex. A smaller, normal morphology lymph node is seen immediately adjacent to finding. LEFT BREAST MASSES: No suspicious masses. Targeted sonographic evaluation demonstrates a tiny simple cyst. CALCIFICATIONS: No new or suspicious calcifications. ARCHITECTURAL DISTORTION: None. ASYMMETRY: There flame shaped subareolar densities without focal mass. OTHER: No other significant finding. IMPRESSION: Right subareolar mass with right axillary lymphadenopathy. BREAST DENSITY: a. The breasts are almost entirely fatty. BIRAD: ASSESSMENT: 4 Suspicious. Biopsy of both the right breast mass and right axillary lymph node should be performed in the absence of clinical contra-indication. RECOMMENDATION: RECOMMENDED FOLLOW UP: Birads 4: Biopsy should be performed in the absence of clinic al contraindication. SPECIFIC INTERVENTION/IMAGING/CONSULTATION RECOMMENDED:The suspicious finding(s) amenable to US guide d core/vacuum assisted biopsy. COMMUNICATION:Imaging findings are recommendations were discussed with the patient at the time of ashley luation. COMMENT: The patient has been notified of the results by letter per MQSA requirements. Additional no tification policies are in place for contacting patient with suspicious or incomplete findings. Quality ID #225: The [employer] recommends an annual screening mammogram for women aged 40 years or over. This facility utilizes a reminder system to ensure that all patients receive reminder letters, and/or direct phone calls for appointments. This includes reminders for routine scr eening mammograms, diagnostic mammograms, or other Breast Imaging Interventions when appropriate. Th is patient will be placed in the appropriate reminder system. TECHNICAL DOCUMENTATION: FINDING NUMBER: (1) ASSESSMENT: (1) JOB ID: [id number] 2010 [employer]- All Rights Reserved Reading location - IP/workstation name: [email or web address]
== END ==
LOC: WI 08:35
PROVIDERS: ATTEND Internal Medicine Gastroenterology
DX: N63.41 Unspecified lump in right breast, subareolar (principal); R59.0 Localized enlarged lymph nodes
CPT/HCPCS: 76642; 77066

== ENCOUNTER 2020-02-23 11:04 | Inpatient (IN) | payer BC ==
[2020-02-23 13:34] LABS: HEMATOCRIT 38.7 % (37.9-51.0); HEMOGLOBIN 13.5 g/dL (13.5-17.0); MEAN CORPUSCULAR HEMOGLOBIN 34.5 pg (27.0-33.4); MEAN CORPUSCULAR HGB CONC 34.9 g/dL (32.0-36.0); MEAN CORPUSCULAR VOLUME 99 fl (80-97); RED BLOOD COUNT 3.92 10^6/uL (4.35-5.55); RED CELL DISTRIBUTION WIDTH 14.6 % (11.5-14.0)
[2020-02-23 13:35] LABS: ALBUMIN 3.1 g/dL (3.5-5.0); ALKALINE PHOSPHATASE 154 U/L (38-126); ANION GAP 10 (5-19); ASPARTATE AMINO TRANSFERASE 411 U/L (17-59); BILIRUBIN,DIRECT 1.8 mg/dL (0.0-0.4); BILIRUBIN,TOTAL 3.6 mg/dL (0.2-1.3); BLOOD UREA NITROGEN 23 mg/dL (7-20); CARBON DIOXIDE 26 mmol/L (22-30); CHLORIDE 93 mmol/L (98-107); GLUCOSE 75 mg/dL (75-110); POTASSIUM 5.2 mmol/L (3.6-5.0); TOTAL PROTEIN 6.6 g/dL (6.3-8.2)
[2020-02-23 13:36] LABS: INTERNATIONAL RATION (INR) 1.42; PROTHROMBIN TIME 17.5 SEC (11.4-15.4)
--- NOTE | 2020-02-23 13:36 | ER Document Report ---
ED General - General Chief Complaint: General Weakness Stated Complaint: WEAKNESS Time Seen by Provider: 02/23/20 11:18 Mode of Arrival: Medic Information source: Patient Notes: This 64-year-old man presents to the emergency department with a history severe pain lower back and also inability to walk due to severe pain. He also states that his thoughts are often he is not clear. The patient's is called and asked an ammonia level be done. He has a history of cirrhosis of the liver. He denies recent fall or injury. Episodes of confusion and poor responsiveness. TRAVEL OUTSIDE OF THE [place] IN LAST 30 DAYS: No - Related Data Allergies/Adverse Reactions: morphine Allergy (Intermediate, Verified 02/05/20 17:31) oxycodone Allergy (Intermediate, Verified 02/05/20 17:31) Past Medical History - Social History Smoking Status: Unknown if Ever Smoked Family History: None, Reviewed & Not Pertinent - Past Medical History Cardiac Medical History: Reports: Hx Hypertension Denies: Hx Coronary Artery Disease, Hx Heart Attack Pulmonary Medical History: Reports: Hx COPD Denies: Hx Asthma, Hx Bronchitis, Hx Pneumonia Neurological Medical History: Denies: Hx Cerebrovascular Accident, Hx Seizures Renal/ Medical History: Denies: Hx Peritoneal Dialysis GI Medical History: Reports: Hx Cirrhosis, Hx Gastroesophageal Reflux Disease Musculoskeletal Medical History: Reports Hx Arthritis Past Surgical History: Reports: Hx Cholecystectomy, Other - Immunizations Hx Diphtheria, Pertussis, Tetanus Vaccination: Yes Hx Pneumococcal Vaccination: 09/03/17 Review of Systems - Review of Systems Notes: Constitutional: Negative for fever. HENT: Negative for sore throat. Eyes: Negative for visual changes. Cardiovascular: Negative for chest pain. Respiratory: Negative for shortness of breath. Gastrointestinal: Negative for abdominal pain, vomiting or diarrhea. Genitourinary: Negative for dysuria. Musculoskeletal:+ back pain. Skin: Negative for rash. Neurological: + Mitten confusion 10 point ROS negative except as marked above and in HPI. Physical Exam - Vital signs Vitals: Pulse Ox 98 02/23/20 11:04 - Notes Notes: PHYSICAL EXAMINATION: Physical Exam: General: Chronically ill-appearing 64-year-old male in no acute distress HEENT: NC/AT, pupils equal round and reactive to light + icteric, MM moist,nares clear, oropharynx clear, airway patent Neck: supple, no adenopathy, no masses. Good range of motion Lungs: clear, no wheezing, no rales no rhonchi CVS: Regular rate and rhythm no murmur gallop or rub Abdomen: Soft, active, nontender, no masses, no hepatosplenomegaly Ext: no edema, clubbing or cyanosis. Neuro: Alert and responsive, moving all 4 extremities on command, cranial nerves intact, no focal findings Skin: Intact no open lesions, no rash PSYCH: Normal mood, normal affect. Course - Re-evaluation Re-evalutation: 02/23/20 15:46 Patient with intermittent confusion and inability to walk, history of liver cirrhosis and esophageal varices. He is hemodynamically stable, ammonia level elevated to 41.9, I have discussed the patient with Dr. Anderson, gastroenterology, suggest lactulose 20 g every 2 hours until diarrhea and improvement, Dr. Willis is contacted, will admit the patient to the IMCU for treatment and monitoring. - Vital Signs Vital signs: Temp Pulse Resp BP Pulse Ox 98.5 F 75 18 144/73 H 96 02/23/20 17:17 02/23/20 17:43 02/23/20 17:43 02/23/20 16:01 02/23/20 17:43 - Laboratory Result Diagrams: 02/23/20 11:52 02/23/20 11:52 Laboratory results interpreted by me: 02/23/20 02/23/20 02/23/20 11:52 11:52 11:52 RBC 3.92 L MCV 99 H MCH 34.5 H RDW 14.6 H Plt Count 83 L Monocytes % (Manual) 16 H PT 17.5 H Sodium Potassium Chloride BUN Lactic Acid 4.9 H Calcium Total Bilirubin Direct Bilirubin AST ALT Alkaline Phosphatase Ammonia Albumin Urine Protein Urine Ketones Urine Blood Urine Urobilinogen 02/23/20 02/23/20 02/23/20 11:52 13:28 14:31 RBC MCV MCH RDW Plt Count Monocytes % (Manual) PT Sodium 128.9 L Potassium 5.2 H Chloride 93 L BUN 23 H Lactic Acid Calcium 13.2 H* Total Bilirubin 3.6 H Direct Bilirubin 1.8 H AST 411 H ALT 91 H Alkaline Phosphatase 154 H Ammonia 41.8 H Albumin 3.1 L Urine Protein 100 H Urine Ketones TRACE H Urine Blood SMALL H Urine Urobilinogen 2.0 H Critical Care Note - Critical Care Note Total time excluding time spent on procedures (mins): 60 - Critical care time spent obtaining history from patient or surrogate, discussions with consultants, development of treatment plan with patient or surrogate, evaluation of patient's response to treatment, examination of patient, ordering and performing treatments and interventions, ordering and review of laboratory studies, re-evaluation of patient's condition, ordering and review of radiographic studies and review of old charts Discharge - Discharge Clinical Impression: Encephalopathy, hepatic, Hyperammonemia, Hypercalcemia Alcoholic cirrhosis of liver Qualifiers: Ascites presence: unspecified Qualified Code(s): K70.30 - Alcoholic cirrhosis of liver without ascites Condition: Fair Disposition: ADMITTED INPATIENT Unit Admitted: [facility]
[2020-02-23 13:46] LABS: CALCIUM 13.2 mg/dL (8.4-10.2)
[2020-02-23 14:01] LABS: PLATELET COUNT 83 10^3/uL (150-450)
[2020-02-23 14:04] LABS: ABSOLUTE LYMPHOCYTES# (MANUAL) 1.4 10^3/uL (0.5-4.7); ABSOLUTE MONOCYTES # (MANUAL) 1.4 10^3/uL (0.1-1.4); BASOPHILS % (MANUAL) 0 % (0-2); EOSINOPHILS % (MANUAL) 1 % (0-6); LYMPHOCYTES % (MANUAL) 16 % (13-45); MONOCYTES % (MANUAL) 16 % (3-13); SEGMENTED NEUTROPHILS % (MAN) 67 % (42-78); TOTAL CELLS COUNTED 100
[2020-02-23 14:05] LABS: ANISOCYTOSIS SLIGHT; PLATELET COMMENT DECREASED; POLYCHROMASIA SLIGHT
[2020-02-23 15:07] LABS: APPEARANCE,URINE CLEAR; BILIRUBIN,URINE NEGATIVE (NEGATIVE); COLOR,URINE AMBER; GLUCOSE, URINE NEGATIVE (NEGATIVE); KETONES,URINE TRACE mg/dL (NEGATIVE); PROTEIN,URINE 100 mg/dL (NEGATIVE); URINE SPECIFIC GRAVITY 1.016
[2020-02-23] MEDS ORDERED: LACTULOSE SYRUP 20 GM/30 ML UDCUP PO ONE (15:36)
[2020-02-23] MEDS ORDERED: IPRATROPIUM/ALBUTEROL 0.5-2.5 MG/3 ML AMPUL NEB PRN (16:02)
[2020-02-23] MEDS ORDERED: ACETAMINOPHEN 325 MG TABLET PO PRN (16:02)
[2020-02-23] MEDS ORDERED: NORMAL SALINE 1000 ML 1,000 ML IV PRN (16:02)
[2020-02-23] MEDS ORDERED: CEFTRIAXONE 1 GM/D5W RTU 1 GM/50 ML RTUPB IV SCH (16:30)
[2020-02-23] MEDS ORDERED: RITUXIMAB 375 MG IV SCH (17:00)
--- NOTE | 2020-02-23 17:00 | PDOC H&P ---
History of Present Illness Admission Date/PCP: 02/23/20 16:06 DERECK ANDERSON MD Patient complains of: Lower back pain generalized weakness History of Present Illness: KIRK CHINCHILLA is a 64 year old male This is a 64-year-old male with a history of the alcoholic cirrhosis of the liver history of the alcohol abuse hypertensions recently have endoscopy done for esophageal varices by Dr. Anderson came to the emergency department with the complaining of increasing the lower back pain and generalized weakness According to the patient and her patient stopped drinking alcohol February 01 and then after patient start getting more sluggish fatigued tired and more sleep y. Patient is recently have a dental procedure done prescribe some antibiotic for that Patient also recently diagnosed with a right breast mass with the mammogram suggested by sofiya for scheduled outpatients biopsy Patient's calcium level is very highly elevated Patient's denied any chest pain no short of breath As per discussed with the surgery scheduled for the biopsy while in the hospital and requesting the rapid COVID test patient does not have any contact with the COVID Past Medical History Cardiac Medical History: Reports: Hypertension Denies: Coronary Artery Disease, Myocardial Infarction Pulmonary Medical History: Reports: Chronic Obstructive Pulmonary Disease (COPD) Denies: Asthma, Bronchitis, Pneumonia Neurological Medical History: Denies: Seizures GI Medical History: Reports: Cirrhosis, Gastroesophageal Reflux Disease Musculoskeltal Medical History: Reports: Arthritis Hematology: Denies: Anemia Past Surgical History Past Surgical History: Reports: Cholecystectomy, Other Social History Information Source: Patient Smoking Status: Former Smoker Frequency of Alcohol Use: Heavy Hx Recreational Drug Use: No Drugs: None Hx Prescription Drug Abuse: No Family History Family History: None, Reviewed & Not Pertinent Parental Family History Reviewed: Yes Children Family History Reviewed: Yes Sibling(s) Family History Reviewed.: Yes Medication/Allergy Home Medications: Multivitamin [Multivitamins] 1 each PO DAILY 06/24/19 Nadolol [Corgard 40 mg Tablet] 40 mg PO QAM 06/24/19 Furosemide [Lasix 20 mg Tablet] 20 mg PO DAILY 02/23/20 Nadolol [Corgard] 20 mg PO QPM 02/23/20 Rituximab [Rituxan Inj 500 mg/50 ml Vial] 375 mg IV Q6M 02/23/20 Spironolactone [Aldactone] 75 mg PO DAILY 02/23/20 Allergies/Adverse Reactions: morphine Allergy (Intermediate, Verified 02/05/20 17:31) oxycodone Allergy (Intermediate, Verified 02/05/20 17:31) Review of Systems Constitutional: ABSENT: chills, fever(s), headache(s), weight gain, weight loss Eyes: ABSENT: visual disturbances Ears: ABSENT: hearing changes Cardiovascular: ABSENT: chest pain, dyspnea on exertion, edema, orthropnea, palpitations Respiratory: ABSENT: cough, hemoptysis Gastrointestinal: ABSENT: abdominal pain, constipation, diarrhea, hematemesis, hematochezia, nausea, vomiting Genitourinary: ABSENT: dysuria, hematuria Musculoskeletal: ABSENT: joint swelling Integumentary: ABSENT: rash, wounds Neurological: ABSENT: abnormal gait, abnormal speech, confusion, dizziness, focal weakness, syncope Psychiatric: ABSENT: anxiety, depression, homidical ideation, suicidal ideation Endocrine: ABSENT: cold intolerance, heat intolerance, menstrual abnormalities, polydipsia, polyuria Hematologic/Lymphatic: ABSENT: easy bleeding, easy bruising, lymphadenopathy Physical Exam Vital Signs: Temp Pulse Resp BP Pulse Ox 98.2 F 78 18 119/105 H 95 02/23/20 14:01 02/23/20 11:08 02/23/20 15:01 02/23/20 15:01 02/23/20 15:01 Intake & Output 02/22/20 02/23/20 02/24/20 06:59 06:59 06:59 Weight 90.4 kg General appearance: PRESENT: no acute distress, well-developed, well-nourished Head exam: PRESENT: atraumatic, normocephalic Eye exam: PRESENT: conjunctiva pink, EOMI, PERRLA. ABSENT: scleral icterus Ear exam: PRESENT: normal external ear exam Mouth exam: PRESENT: moist, tongue midline Neck exam: PRESENT: full ROM. ABSENT: carotid bruit, JVD, lymphadenopathy, thyromegaly Respiratory exam: PRESENT: clear to auscultation arnulfo Cardiovascular exam: PRESENT: RRR. ABSENT: diastolic murmur, rubs, systolic murmur Pulses: PRESENT: normal dorsalis pedis pul, +2 pedal pulses bilateral Vascular exam: PRESENT: normal capillary refill GI/Abdominal exam: PRESENT: normal bowel sounds, soft. ABSENT: distended, guarding, mass, organolmegaly, rebound, tenderness Rectal exam: PRESENT: deferred Neurological exam: PRESENT: alert, awake, oriented to person, oriented to place, oriented to time, oriented to situation, CN II-XII grossly intact. ABSENT: motor sensory deficit Psychiatric exam: PRESENT: appropriate affect, normal mood. ABSENT: homicidal ideation, suicidal ideation Skin exam: PRESENT: dry, intact, warm. ABSENT: cyanosis, rash Results Laboratory Results: 02/23/20 11:52 02/23/20 11:52 02/23/20 02/23/20 02/23/20 11:52 11:52 11:52 WBC 9.0 RBC 3.92 L Hgb 13.5 Hct 38.7 MCV 99 H MCH 34.5 H MCHC 34.9 RDW 14.6 H Plt Count 83 L Seg Neutrophils % Not Reportable Sodium 128.9 L Potassium 5.2 H Chloride 93 L Carbon Dioxide 26 Anion Gap 10 BUN 23 H Creatinine 0.96 Est GFR ( Amer) > 60 Glucose 75 Lactic Acid 4.9 H Calcium 13.2 H* Magnesium Total Bilirubin 3.6 H AST 411 H Alkaline Phosphatase 154 H Ammonia Total Protein 6.6 Albumin 3.1 L Urine Color Urine Appearance Urine pH Ur Specific [place] Urine Protein Urine Glucose (UA) Urine Ketones Urine Blood Urine RBC (Auto) 02/23/20 02/23/20 02/23/20 13:28 13:40 14:31 WBC RBC Hgb Hct MCV MCH MCHC RDW Plt Count Seg Neutrophils % Sodium Potassium Chloride Carbon Dioxide Anion Gap BUN Creatinine Est GFR ( Amer) Glucose Lactic Acid Calcium Magnesium 1.6 Total Bilirubin AST Alkaline Phosphatase Ammonia 41.8 H Total Protein Albumin Urine Color [place] Urine Appearance CLEAR Urine pH 5.0 Ur Specific [place] 1.016 Urine Protein 100 H Urine Glucose (UA) NEGATIVE Urine Ketones TRACE H Urine Blood SMALL H Urine RBC (Auto) 1 02/23/20 02/23/20 11:52 13:40 Troponin I Cancelled 0.035 Assessment & Plan - Diagnosis (1) Encephalopathy, hepatic Is this a current diagnosis for this admission?: Yes Plan: As per discussed with Dr. Anderson start the lactulose 20 g every 2 hours until get the diarrhea then every 6 hours (2) Alcoholic cirrhosis of liver Qualifiers: Ascites presence: unspecified Qualified Code(s): K70.30 - Alcoholic cirrhosis of liver without ascites Is this a current diagnosis for this admission?: Yes Plan: We consulted Dr. Anderson (3) Hyperammonemia Is this a current diagnosis for this admission?: Yes Plan: Continues to lactulose as above (4) Hypercalcemia Is this a current diagnosis for this admission?: Yes Plan: The patient on IV fluid We will get the bone scan get a CT of the chest and abdomen and pelvis to rule out any malignancy with the history of the breast mass (5) Chronic obstructive pulmonary disease Qualifiers: COPD type: unspecified COPD Qualified Code(s): J44.9 - Chronic obstructive pulmonary disease, unspecified Is this a current diagnosis for this admission?: Yes Plan: Patient is the nebulizer treatments (6) Esophageal varices in alcoholic cirrhosis Is this a current diagnosis for this admission?: Yes Plan: recently have endoscopy done (7) History of alcoholism Is this a current diagnosis for this admission?: Yes Plan: His last alcohol was February 01 will put the patient on thiamine (8) Hyperlipidemia Qualifiers: Hyperlipidemia type: unspecified Qualified Code(s): E78.5 - Hyperlipidemia, unspecified Is this a current diagnosis for this admission?: Yes (9) Hypertension Qualifiers: Hypertension type: essential hypertension Qualified Code(s): I10 - Essential (primary) hypertension Is this a current diagnosis for this admission?: Yes Plan: Continues to nadolol (10) Rheumatoid arthritis Qualifiers: Rheumatoid arthritis location: multiple sites Is this a current diagnosis for this admission?: Yes Plan: Patient is currently seeing Dr. Xavier as outpatient - Time Time Spent: 50 to 70 Minutes Medications reviewed and adjusted accordingly: Yes Anticipated discharge: Home Within: Other - Inpatient Certification Based on my medical assessment, after consideration of the patient's nick rbidities, presenting symptoms, or acuity I expect that the services needed warrant INPATIENT care.: Yes I certify that my determination is in accordance with my understanding of Medicare's requirements for reasonable and necessary INPATIENT services [42 CFR 412.3e].: Yes Medical Necessity: Failure to Improve With Outpatient Therapy, Need Close Monitoring Due to Risk of Patient Decompensation, Need For IV Fluids, Need for IV Antibiotics Post Hospital Care: D/C Closer On Documentation - Plan Summary Plan Summary: Will admit the patient's in IMCU Consult oncology Consultants General surgery Start the patient is on lactulose Get the blood culture urine culture to rule out any sepsis We will order a CT scan of the chest abdomen pelvis as per discussed with oncology and also the bone scan Very extensive discussed with the patient and the regarding the patient's current conditions Discussed with the patient and her about CODE STATUS not sure they will discuss Overall because of the ongoing liver failure questionable breast mass with possible malignancy patient overall prognosis is not that great
[2020-02-23] MEDS ORDERED: LACTULOSE SYRUP 20 GM/30 ML UDCUP PO SCH (18:00)
--- NOTE | 2020-02-23 18:00 | RADIOLOGY REPORT (SQ) ---
EXAM DESCRIPTION: CT CHEST WITH; CT ABD/PELVIS WITH IV ONLY IMAGES COMPLETED DATE/TIME: 02/23/2020 4:03 pm REASON FOR STUDY: hypercalcium hypercalcium. CT abdomen and pelvis, 09/15/2019. COMPARISON: CT abdomen, 09/15/2019. CT angiography abdomen, 02/19/2017. CT chest 07/27/2015. CONTRAST TYPE AND DOSE: 99.2 mL Omnipaque 350- low osmolar. RENAL FUNCTION: GFR > 60. TECHNIQUE: CT scan of the chest performed using helical scanning technique with dynamic intravenous contrast injection. Images reviewed with lung, soft tissue and bone windows. Reconstructed coronal a nd sagittal MPR images reviewed. All images stored on PACS. CT scan of the abdomen and pelvis performed with intravenous and oral contrast using helical scanning technique with dynamic intravenous contrast injection. Images reviewed with lung, soft tissue and b one windows. Reconstructed coronal and sagittal MPR images reviewed. Delayed images for evaluation of the urinary system also acquired and evaluated. All images stored on PACS. All CT scanners at this facility use dose modulation, iterative reconstruction, and/or weight based d osing when appropriate to reduce radiation dose to as low as reasonably achievable (ALARA). [facility]: Dose Right [facility]: CareDose [facility]: Dose Right [facility]: Teradose 4D [facility]: [employer] RADIATION DOSE: CT Rad equipment meets quality standard of care and radiation dose reduction techniq ues were employed. CTDIvol: 19.5 - 19.6 mGy. DLP: 2645 mGy-cm. . LIMITATIONS: None. FINDINGS: CHEST: AXILLAE: There is an abnormal enlarged right axillary lymph node measuring 2.1 x 2.1 cm. A couple of prominent adjacent subpectoral lymph nodes measuring up to 1 cm are also mildly suspicious. CHEST WALL: Moderate soft tissue density within the subareolar regions bilaterally probably a combina tion of bilateral gynecomastia and lobulated mass in the right breast. No skin thickening. Couple o f subcentimeter masses in both breasts soft tissues, indeterminate. LUNGS: Trachea has normal caliber and appearance. There is mild bronchial wall thickening and tree-i n-bud nodularity in the right lower lobe, consistent with respiratory bronchiolitis/ small airways di sease. No focal confluent consolidation. Couple of discrete nodules measuring up to 6 mm in the rig ht lower lobe. Background mild pulmonary emphysema. PLEURA: No effusions. No calcifications. THYROID: No masses or significant asymmetry. HILAR AND MEDIASTINAL STRUCTURES: No identified masses or abnormal nodes. AORTA AND GREAT VESSELS: No aneurysm. No dissection. PULMONARY ARTERIES: No identified pulmonary emboli. Study not optimized for the pulmonary arteries. HEART: No pericardial effusion. HARDWARE AND LIFELINES: None. BONES: Postoperative changes of right rotator cuff repair. No suspicious bone lesions. OTHER: No other significant finding. ABDOMEN AND PELVIS: LIVER: Liver has a shrunken nodular contour. There is a subtle hypodense lesion in the posterior rig ht hepatic lobe measuring 1.1 cm (image 51). Hepatic and portal veins are patent. No biliary ductal dilation. SPLEEN: Splenomegaly with spleen measuring 14.5 cm craniocaudal at the midclavicular line. PANCREAS: No masses. No significant calcifications. No adjacent inflammation or peripancreatic flui d collections. Pancreatic duct not dilated. GALLBLADDER: Surgically absent. ADRENAL GLANDS: No significant masses or asymmetry. RIGHT KIDNEY AND URETER: Right renal cortical cysts. No solid renal mass. No significant calcifica tions. No hydronephrosis or hydroureter. LEFT KIDNEY AND URETER: Left renal cortical cysts. No solid renal mass. No significant calcificati ons. No hydronephrosis or hydroureter. AORTA AND VESSELS: No aneurysm or dissection. Scattered calcified atherosclerotic plaque. Mild narr owing of the superior mesenteric artery at its origin secondary to plaque. Multiple tortuous venous varicosities in the mesenteries. RETROPERITONEUM: No retroperitoneal adenopathy, hemorrhage or masses. LARGE AND SMALL BOWEL: Postoperative changes at the gastroesophageal junction, probably previous Niss en repair. There is extensive colonic diverticulosis without evidence of diverticulitis. No bowel o bstruction. No bowel wall thickening or significant inflammatory change. APPENDIX: Normal. ABDOMINAL WALL: Small fat containing umbilical hernia. No subcutaneous mass or fluid collection. PERITONEAL CAVITY: No free air. Small amount of ascites in the pericolic gutters and adjacent to the liver. PELVIS: There is a 2.3 x 1.5 cm soft tissue density mass in the left deep inguinal region adjacent to some ascites. This is indeterminate. Prostate gland has normal size. Urinary bladder has normal c ontour and appearance. No pelvic adenopathy. BONES: Spondylosis and degenerative disc disease in the lumbar spine. No suspicious bone lesions. OTHER: No other significant finding. IMPRESSION: 1. Tree-in-bud nodularity and bronchial wall thickening in the right lower lobe, suspicious for respi ratory bronchiolitis/small airways disease. No focal consolidation or pleural effusion. Given discr ete nodularity, a follow-up CT of the chest in 3 months is recommended to evaluate for complete resol ution. 2. Nodular contour of the liver and multiple mesenteric venous collaterals consistent with underlying hepatic cirrhosis, with portal hypertension. There is an ill-defined hypo dense lesion in the poste rior right hepatic lobe not definitely identified on previous imaging, indeterminate. Further evalua tion with hepatic protocol MRI or CT is recommended. 3. Small amount of ascites likely related to history of cirrhosis. 4. Soft tissue density nodule in the left lower quadrant abdomen may represent postoperative change s econdary to prior left inguinal hernia repair. Clinical correlation for previous procedure recommend ed. 5. Colonic diverticulosis without evidence of diverticulitis. 6. Bilateral renal cortical cysts unchanged. 7. Bilateral soft tissue density in the subareolar regions, probably representing a combination of gy necomastia and a right breast mass as seen on previous diagnostic mammogram and ultrasound. Enlarged right axillary lymph node is also seen. Further evaluation with image guided biopsy as previously r ecommended. TECHNICAL DOCUMENTATION: JOB ID: [id number] Quality ID # [id number]: Final reports with documentation of one or more dose reduction techniques (e.g., Au tomated exposure control, adjustment of the mA and/or kV according to patient size, use of iterative reconstruction technique) 2010 [employer]- All Rights Reserved Reading location - IP/workstation name: [email or web address]
[2020-02-23] MEDS: CEFEPIME 1 GM/D5W RTU 1 GM/50 ML RTUPB IV SCH (18:41)
[2020-02-23] MEDS: LACTULOSE SYRUP 20 GM/30 ML UDCUP PO SCH ×3 (18:44→22:08)
[2020-02-23] MEDS ORDERED: LIDOCAINE 2% INJ (20 MG/ML) 20 ML MDV ONE (18:51)
--- NOTE | 2020-02-23 18:57 | PDOC CONSULTATION ---
Consultation Consult Date: 02/23/20 Attending physician:: MELANIE SALEEM Provider Consulted: NEAL CHILDRESS Consult reason:: Right breast mass History of Present Illness Admission Date/PCP: 02/23/20 16:06 DERECK CLEMENT MD History of Present Illness: KIRK CHINCHILLA is a 64 year old male Presents emergency department via ground rescue complaining of weakness. Patient is a poor historian. Per record, patient has recently diagnosed with right breast mass based on physical exam, mammography and ultrasonography. There is an ipsilateral right axillary mass as well suspicious for malignancy. Patient is in the emergency department where he is found to have calcium level of 13.2. CT scans of the abdomen chest and pelvis revealed findings consistent with mesenteric disease, postoperative changes around the esophagus, left inguinal node adenopathy, fluid, bilateral breast fullness with dominant right breast mass. Surgery was consulted for right breast biopsy Past Medical History Past Medical History: Multiple medical problems including alcohol induced cirrhosis, esophageal varices, elevated liver function studies, Cardiac Medical History: Reports: Hypertension Denies: Coronary Artery Disease, Myocardial Infarction Pulmonary Medical History: Reports: Chronic Obstructive Pulmonary Disease (COPD) Denies: Asthma, Bronchitis, Pneumonia Neurological Medical History: Denies: Seizures GI Medical History: Reports: Cirrhosis, Gastroesophageal Reflux Disease Musculoskeltal Medical History: Reports: Arthritis Hematology: Denies: Anemia Past Surgical History Past Surgical History: Reports: Cholecystectomy, Other Social History Information Source: Patient Smoking Status: Unknown if Ever Smoked Frequency of Alcohol Use: Heavy Hx Recreational Drug Use: No Drugs: None Hx Prescription Drug Abuse: No Family History Family History: Reviewed & Not Pertinent Parental Family History Reviewed: No Children Family History Reviewed: No Sibling(s) Family History Reviewed.: No Medication/Allergy Home Medications: Multivitamin [Multivitamins] 1 each PO DAILY 06/24/19 Nadolol [Corgard 40 mg Tablet] 40 mg PO QAM 06/24/19 Furosemide [Lasix 20 mg Tablet] 20 mg PO DAILY 02/23/20 Nadolol [Corgard] 20 mg PO QPM 02/23/20 Rituximab [Rituxan Inj 500 mg/50 ml Vial] 375 mg IV ASDIR 02/23/20 Spironolactone [Aldactone] 75 mg PO DAILY 02/23/20 Allergies/Adverse Reactions: morphine Allergy (Intermediate, Verified 02/05/20 17:31) oxycodone Allergy (Intermediate, Verified 02/05/20 17:31) Review of Systems ROS unobtainable: Due to mental status Constitutional: PRESENT: as per HPI Eyes: PRESENT: visual disturbances, other Physical Exam Vital Signs: Temp Pulse Resp BP Pulse Ox 98.5 F 75 18 144/73 H 96 02/23/20 17:17 02/23/20 17:43 02/23/20 17:43 02/23/20 16:01 02/23/20 17:43 Intake & Output 02/22/20 02/23/20 02/24/20 06:59 06:59 06:59 Weight 90.4 kg General appearance: PRESENT: no acute distress, other - Weak, unable to get up from a supine position without assistance Head exam: PRESENT: normocephalic Eye exam: PRESENT: scleral icterus, other - With bulging sclera Mouth exam: PRESENT: dry mucosa Teeth exam: PRESENT: poor dentation Respiratory exam: PRESENT: rhonchi, other - Right chest wall Breast: PRESENT: Other - Right breast mass approximately 5 to 6 cm, ovoid shaped. Left breast with enlarged parenchyma. GI/Abdominal exam: PRESENT: other - Mildly distended; right subcostal scar consistent with previous surgery Rectal exam: PRESENT: deferred Extremities exam: PRESENT: pedal edema Neurological exam: PRESENT: oriented to person, oriented to place Psychiatric exam: PRESENT: other - Affect flat Results Laboratory Results: 02/23/20 11:52 02/23/20 11:52 02/23/20 02/23/20 02/23/20 11:52 11:52 11:52 WBC 9.0 RBC 3.92 L Hgb 13.5 Hct 38.7 MCV 99 H MCH 34.5 H MCHC 34.9 RDW 14.6 H Plt Count 83 L Seg Neutrophils % Not Reportable Sodium 128.9 L Potassium 5.2 H Chloride 93 L Carbon Dioxide 26 Anion Gap 10 BUN 23 H Creatinine 0.96 Est GFR ( Amer) > 60 Glucose 75 Lactic Acid 4.9 H Calcium 13.2 H* Magnesium Total Bilirubin 3.6 H AST 411 H Alkaline Phosphatase 154 H Ammonia Total Protein 6.6 Albumin 3.1 L Urine Color Urine Appearance Urine pH Ur Specific [place] Urine Protein Urine Glucose (UA) Urine Ketones Urine Blood Urine RBC (Auto) 02/23/20 02/23/20 02/23/20 13:28 13:40 14:31 WBC RBC Hgb Hct MCV MCH MCHC RDW Plt Count Seg Neutrophils % Sodium Potassium Chloride Carbon Dioxide Anion Gap BUN Creatinine Est GFR ( Amer) Glucose Lactic Acid Calcium Magnesium 1.6 Total Bilirubin AST Alkaline Phosphatase Ammonia 41.8 H Total Protein Albumin Urine Color [place] Urine Appearance CLEAR Urine pH 5.0 Ur Specific [place] 1.016 Urine Protein 100 H Urine Glucose (UA) NEGATIVE Urine Ketones TRACE H Urine Blood SMALL H Urine RBC (Auto) 1 02/23/20 16:33 WBC RBC Hgb Hct MCV MCH MCHC RDW Plt Count Seg Neutrophils % Sodium Potassium Chloride Carbon Dioxide Anion Gap BUN Creatinine Est GFR ( Amer) Glucose Lactic Acid 5.2 H Calcium Magnesium Total Bilirubin AST Alkaline Phosphatase Ammonia Total Protein Albumin Urine Color Urine Appearance Urine pH Ur Specific [place] Urine Protein Urine Glucose (UA) Urine Ketones Urine Blood Urine RBC (Auto) 02/23/20 02/23/20 11:52 13:40 Troponin I Cancelled 0.035 Impressions: Abdomen/Pelvis CT 02/23/20 00:00 IMPRESSION: 1. Tree-in-bud nodularity and bronchial wall thickening in the right lower lobe, suspicious for respiratory bronchiolitis/small airways disease. No focal consolidation or pleural effusion. Given discrete nodularity, a follow-up CT of the chest in 3 months is recommended to evaluate for complete resolution. 2. Nodular contour of the liver and multiple mesenteric venous collaterals consistent with underlying hepatic cirrhosis, with portal hypertension. There is an ill-defined hypo dense lesion in the posterior right hepatic lobe not definitely identified on previous imaging, indeterminate. Further evaluation with hepatic protocol MRI or CT is recommended. 3. Small amount of ascites likely related to history of cirrhosis. 4. Soft tissue density nodule in the left lower quadrant abdomen may represent postoperative change secondary to prior left inguinal hernia repair. Clinical correlation for previous procedure recommended. 5. Colonic diverticulosis without evidence of diverticulitis. 6. Bilateral renal cortical cysts unchanged. 7. Bilateral soft tissue density in the subareolar regions, probably representing a combination of gynecomastia and a right breast mass as seen on previous diagnostic mammogram and ultrasound. Enlarged right axillary lymph node is also seen. Further evaluation with image guided biopsy as previously recommended. Chest CT 02/23/20 00:00 IMPRESSION: 1. Tree-in-bud nodularity and bronchial wall thickening in the right lower lobe, suspicious for respiratory bronchiolitis/small airways disease. No focal consolidation or pleural effusion. Given discrete nodularity, a follow-up CT of the chest in 3 months is recommended to evaluate for complete resolution. 2. Nodular contour of the liver and multiple mesenteric venous collaterals consistent with underlying hepatic cirrhosis, with portal hypertension. There is an ill-defined hypo dense lesion in the posterior right hepatic lobe not definitely identified on previous imaging, indeterminate. Further evaluation with hepatic protocol MRI or CT is recommended. 3. Small amount of ascites likely related to history of cirrhosis. 4. Soft tissue density nodule in the left lower quadrant abdomen may represent postoperative change secondary to prior left inguinal hernia repair. Clinical correlation for previous procedure recommended. 5. Colonic diverticulosis without evidence of diverticulitis. 6. Bilateral renal cortical cysts unchanged. 7. Bilateral soft tissue density in the subareolar regions, probably representing a combination of gynecomastia and a right breast mass as seen on previous diagnostic mammogram and ultrasound. Enlarged right axillary lymph node is also seen. Further evaluation with image guided biopsy as previously recommended. Assessment & Plan - Diagnosis (1) Breast mass, right Is this a current diagnosis for this admission?: Yes Plan: Impression: Large suspicious right breast mass with ipsilateral right axillary adenopathy suspicious for breast cancer in a 64-year-old white male with history of multiple chronic medical problems including alcohol induced liver deficiency with encephalopathy; hypercalcemia of unclear etiology Recommendations: 1. Patient being admitted for management of hepatic encephalopathy, hyper ammonia level, and hyper calcium [place] 2. We will perform bedside core biopsy of right breast mass, possibly right axillary mass as well. This was explained to the patient. I believe understands and agrees to proceed. Additional biopsy may be required. (2) Mass of right axilla Is this a current diagnosis for this admission?: Yes (3) Alcoholic cirrhosis of liver Qualifiers: Ascites presence: unspecified Qualified Code(s): K70.30 - Alcoholic cirrhosis of liver without ascites Is this a current diagnosis for this admission?: Yes (4) Encephalopathy, hepatic Is this a current diagnosis for this admission?: Yes (5) Hyperammonemia Is this a current diagnosis for this admission?: Yes (6) Esophageal varices in alcoholic cirrhosis Is this a current diagnosis for this admission?: Yes (7) Gynecomastia Is this a current diagnosis for this admission?: Yes - Time Time Spent: 30 to 50 Minutes Smoking Cessation Education: over 10 minutes
[2020-02-23] MEDS: NORMAL SALINE 1000 ML 1,000 ML IV PRN (19:00)
--- NOTE | 2020-02-23 19:44 | Operative Report ---
Operative Report DATE OF SURGERY: 02/23/20 PREOPERATIVE DIAGNOSIS: 1. Right breast mass. 2. Gynecomastia. 3. Right ax illary mass. 4. Alcoholic hepatic encephalopathy POSTOPERATIVE DIAGNOSIS: Same OPERATION: 1. Focused ultrasound of the right breast. 2. Focused ultrasound right axilla. 3. Ultrasound directed core biopsies right breast mass. 4. Ultrasound directed core biopsy right axillary mass SURGEON: NEAL CHILDRESS ANESTHESIA: Local TISSUE REMOVED OR ALTERED: Multiple cores right breast and right axilla COMPLICATIONS: None ESTIMATED BLOOD LOSS: Minimal INTRAOPERATIVE FINDINGS: See below PROCEDURE: The patient was evaluated emergency department room 15. His level of consciousness was depressed due to hepatic encephalopathy. He did consent to the offered procedure, right breast and right axillary biopsies. The patient was placed in the semirecumbent position right arm abducted. The right breast and right axilla were shaved of hair, then [place] gel was placed on the right breast. Prior to scanning, the examination was significant for a flattened nipple, and a mass approximately 6 cm in diameter, long shaped oriented horizontally with the epicenter below the areola. The right breast was scanned and the findings are significant for hypoechoic, lobulated mass approximately 5 and half to 6 cm diameter by 3 and half to 4 cm deep. Compared the right breast with the left breast in terms of parenchyma and there was much less breast tissue on the left side but still enlarged compared to normal. There was no discrete left breast mass. We now skin the right axilla. There were multiple normal, and slightly enlarged lymph nodes, some with normal cortex and somewhat thickened cortex. In the anterior axilla was a dominant approximately 2 cm abnormal lymph node, tented vertically, well-circumscribed, with no hilum. We now approached the right breast mass using ultrasound-guided technique. Adjacent skin was prepped with Betadine skin anesthetized with 1% plain lidocaine and at the 6 o'clock position 3 cm from the nipple a Michael was made in the skin with 11 blade, and using the 14-gauge disposable Bard mammotome, 3 cores were taken and these specimens were sent to pathology labeled specimen a right breast mass. Bleeding was negligible. There is no hematoma. All 3 cores sank in the formaldehyde. We now directed our attention to the right axillary mass described above. Adjacent skin was prepped with Betadine anesthetized with 1% plain lidocaine. Exact same procedure was performed as above with the acquisition of 2 decent cores which sank in the formaldehyde. The specimens were labeled container B, right axillary mass The patient tolerated procedure well. Impression: Right breast mass, and right axillary adenopathy suspicious for right breast malignancy with metastatic disease in 64-year-old male with hepatic encephalopathy due to alcohol abuse. Recommendations: 1. Due to the procedure being performed after hours in the emergency department, we did not have a clip marker available for deployment. 2. Await biopsies; oncologic consultation may be required.
[2020-02-23] MEDS: PANTOPRAZOLE SODIUM 40 MG VIAL IV SCH (22:09)
[2020-02-24] MEDS: LACTULOSE SYRUP 20 GM/30 ML UDCUP PO SCH ×9 (00:06→16:32)
--- NOTE | 2020-02-24 00:24 | EKG REPORT ---
SEVERITY:- ABNORMAL ECG - SINUS RHYTHM RIGHT BUNDLE BRANCH BLOCK : Confirmed by: Katie Frausto 24-Feb-2020 00:23:46
[2020-02-24] MEDS: CEFEPIME 1 GM/D5W RTU 1 GM/50 ML RTUPB IV SCH ×2 (06:13→17:19)
[2020-02-24 06:18] LABS: HEMATOCRIT 37.7 % (37.9-51.0); HEMOGLOBIN 13.2 g/dL (13.5-17.0); MEAN CORPUSCULAR HEMOGLOBIN 34.6 pg (27.0-33.4); MEAN CORPUSCULAR VOLUME 99 fl (80-97); RED BLOOD COUNT 3.82 10^6/uL (4.35-5.55); RED CELL DISTRIBUTION WIDTH 14.8 % (11.5-14.0); WHITE BLOOD COUNT 9.7 10^3/uL (4.0-10.5)
[2020-02-24 06:38] LABS: ALBUMIN 3.2 g/dL (3.5-5.0); ALKALINE PHOSPHATASE 150 U/L (38-126); ANION GAP 10 (5-19); ASPARTATE AMINO TRANSFERASE 390 U/L (17-59); BILIRUBIN,DIRECT 2.4 mg/dL (0.0-0.4); BILIRUBIN,TOTAL 4.3 mg/dL (0.2-1.3); BLOOD UREA NITROGEN 28 mg/dL (7-20); CARBON DIOXIDE 24 mmol/L (22-30); CHLORIDE 96 mmol/L (98-107); GLUCOSE 98 mg/dL (75-110); POTASSIUM 5.2 mmol/L (3.6-5.0); TOTAL PROTEIN 6.7 g/dL (6.3-8.2)
[2020-02-24 06:55] LABS: CALCIUM 13.8 mg/dL (8.4-10.2)
[2020-02-24 08:03] LABS: PLATELET COUNT 73 10^3/uL (150-450)
[2020-02-24 08:06] LABS: ABSOLUTE LYMPHOCYTES# (MANUAL) 1.7 10^3/uL (0.5-4.7); ABSOLUTE MONOCYTES # (MANUAL) 1.2 10^3/uL (0.1-1.4); BAND NEUTROPHILS % (MANUAL) 1 % (3-5); BASOPHILS % (MANUAL) 0 % (0-2); EOSINOPHILS % (MANUAL) 2 % (0-6); LYMPHOCYTES % (MANUAL) 18 % (13-45); MONOCYTES % (MANUAL) 12 % (3-13); SEGMENTED NEUTROPHILS % (MAN) 65 % (42-78); TOTAL CELLS COUNTED 100
[2020-02-24 08:07] LABS: MYELOCYTES % (MANUAL) 2 % (0)
[2020-02-24 08:11] LABS: ANISOCYTOSIS SLIGHT; OVALOCYTES SLIGHT; TEAR DROP CELLS SLIGHT
[2020-02-24 08:12] LABS: PLATELET COMMENT DECREASED
--- NOTE | 2020-02-24 09:07 | PDOC PROGRESS REPORT ---
Subjective Progress Note for:: 02/24/20 Subjective:: Patient is currently doing fair Patient still weak And is alert awake oriented Patient's denied any chest pain no short of breath Since ammonia level is 51 Patient other than that denied any other symptoms Patient had a breast biopsy done yesterday Reason For Visit: WEAKNESS/HYPERCALCEMIA Physical Exam Vital Signs: Temp Pulse Resp BP Pulse Ox 97.4 F 80 18 156/66 H 97 02/24/20 07:58 02/24/20 07:58 02/24/20 07:58 02/24/20 07:58 02/24/20 07:58 Intake & Output 02/23/20 02/24/20 02/25/20 06:59 06:59 06:59 Intake Total 50 Output Total 150 Balance -100 Weight 95.7 kg General appearance: PRESENT: no acute distress, well-developed, well-nourished Head exam: PRESENT: atraumatic, normocephalic Eye exam: PRESENT: conjunctiva pink, EOMI, PERRLA. ABSENT: scleral icterus Ear exam: PRESENT: normal external ear exam Mouth exam: PRESENT: moist, tongue midline Neck exam: PRESENT: full ROM. ABSENT: carotid bruit, JVD, lymphadenopathy, thyromegaly Respiratory exam: PRESENT: clear to auscultation arnulfo Cardiovascular exam: PRESENT: RRR. ABSENT: diastolic murmur, rubs, systolic murmur Pulses: PRESENT: normal dorsalis pedis pul, +2 pedal pulses bilateral Vascular exam: PRESENT: normal capillary refill GI/Abdominal exam: PRESENT: normal bowel sounds, soft. ABSENT: distended, guarding, mass, organolmegaly, rebound, tenderness Rectal exam: PRESENT: deferred Neurological exam: PRESENT: alert, awake, oriented to person, oriented to place, oriented to time, oriented to situation, CN II-XII grossly intact. ABSENT: motor sensory deficit Psychiatric exam: PRESENT: appropriate affect, normal mood. ABSENT: homicidal ideation, suicidal ideation Skin exam: PRESENT: dry, intact, warm. ABSENT: cyanosis, rash Results Laboratory Results: 02/24/20 05:57 02/24/20 05:57 02/23/20 02/23/20 02/23/20 11:52 11:52 11:52 WBC 9.0 RBC 3.92 L Hgb 13.5 Hct 38.7 MCV 99 H MCH 34.5 H MCHC 34.9 RDW 14.6 H Plt Count 83 L Seg Neutrophils % Not Reportable Sodium 128.9 L Potassium 5.2 H Chloride 93 L Carbon Dioxide 26 Anion Gap 10 BUN 23 H Creatinine 0.96 Est GFR ( Amer) > 60 Glucose 75 Lactic Acid 4.9 H Calcium 13.2 H* Magnesium Total Bilirubin 3.6 H AST 411 H Alkaline Phosphatase 154 H Ammonia Total Protein 6.6 Albumin 3.1 L Urine Color Urine Appearance Urine pH Ur Specific [place] Urine Protein Urine Glucose (UA) Urine Ketones Urine Blood Urine RBC (Auto) 02/23/20 02/23/20 02/23/20 13:28 13:40 14:31 WBC RBC Hgb Hct MCV MCH MCHC RDW Plt Count Seg Neutrophils % Sodium Potassium Chloride Carbon Dioxide Anion Gap BUN Creatinine Est GFR ( Amer) Glucose Lactic Acid Calcium Magnesium 1.6 Total Bilirubin AST Alkaline Phosphatase Ammonia 41.8 H Total Protein Albumin Urine Color [place] Urine Appearance CLEAR Urine pH 5.0 Ur Specific [place] 1.016 Urine Protein 100 H Urine Glucose (UA) NEGATIVE Urine Ketones TRACE H Urine Blood SMALL H Urine RBC (Auto) 1 02/23/20 02/23/20 02/24/20 16:33 22:15 05:57 WBC 9.7 RBC 3.82 L Hgb 13.2 L Hct 37.7 L MCV 99 H MCH 34.6 H MCHC 35.0 RDW 14.8 H Plt Count 73 L Seg Neutrophils % Not Reportable Sodium Potassium Chloride Carbon Dioxide Anion Gap BUN Creatinine Est GFR ( Amer) Glucose Lactic Acid 5.2 H 6.0 H Calcium Magnesium Total Bilirubin AST Alkaline Phosphatase Ammonia Total Protein Albumin Urine Color Urine Appearance Urine pH Ur Specific [place] Urine Protein Urine Glucose (UA) Urine Ketones Urine Blood Urine RBC (Auto) 02/24/20 02/24/20 05:57 05:57 WBC RBC Hgb Hct MCV MCH MCHC RDW Plt Count Seg Neutrophils % Sodium 130.4 L Potassium 5.2 H Chloride 96 L Carbon Dioxide 24 Anion Gap 10 BUN 28 H Creatinine 1.14 Est GFR ( Amer) > 60 Glucose 98 Lactic Acid Calcium 13.8 H* Magnesium Total Bilirubin 4.3 H AST 390 H Alkaline Phosphatase 150 H Ammonia 51.5 H Total Protein 6.7 Albumin 3.2 L Urine Color Urine Appearance Urine pH Ur Specific [place] Urine Protein Urine Glucose (UA) Urine Ketones Urine Blood Urine RBC (Auto) 02/23/20 02/23/20 11:52 13:40 Troponin I Cancelled 0.035 Impressions: Abdomen/Pelvis CT 02/23/20 00:00 IMPRESSION: 1. Tree-in-bud nodularity and bronchial wall thickening in the right lower lobe, suspicious for respiratory bronchiolitis/small airways disease. No focal consolidation or pleural effusion. Given discrete nodularity, a follow-up CT of the chest in 3 months is recommended to evaluate for complete resolution. 2. Nodular contour of the liver and multiple mesenteric venous collaterals consistent with underlying hepatic cirrhosis, with portal hypertension. There is an ill-defined hypo dense lesion in the posterior right hepatic lobe not definitely identified on previous imaging, indeterminate. Further evaluation with hepatic protocol MRI or CT is recommended. 3. Small amount of ascites likely related to history of cirrhosis. 4. Soft tissue density nodule in the left lower quadrant abdomen may represent postoperative change secondary to prior left inguinal hernia repair. Clinical correlation for previous procedure recommended. 5. Colonic diverticulosis without evidence of diverticulitis. 6. Bilateral renal cortical cysts unchanged. 7. Bilateral soft tissue density in the subareolar regions, probably representing a combination of gynecomastia and a right breast mass as seen on previous diagnostic mammogram and ultrasound. Enlarged right axillary lymph node is also seen. Further evaluation with image guided biopsy as previously recommended. Chest CT 02/23/20 00:00 IMPRESSION: 1. Tree-in-bud nodularity and bronchial wall thickening in the right lower lobe, suspicious for respiratory bronchiolitis/small airways disease. No focal consolidation or pleural effusion. Given discrete nodularity, a follow-up CT of the chest in 3 months is recommended to evaluate for complete resolution. 2. Nodular contour of the liver and multiple mesenteric venous collaterals consistent with underlying hepatic cirrhosis, with portal hypertension. There is an ill-defined hypo dense lesion in the posterior right hepatic lobe not definitely identified on previous imaging, indeterminate. Further evaluation with hepatic protocol MRI or CT is recommended. 3. Small amount of ascites likely related to history of cirrhosis. 4. Soft tissue density nodule in the left lower quadrant abdomen may represent postoperative change secondary to prior left inguinal hernia repair. Clinical correlation for previous procedure recommended. 5. Colonic diverticulosis without evidence of diverticulitis. 6. Bilateral renal cortical cysts unchanged. 7. Bilateral soft tissue density in the subareolar regions, probably representing a combination of gynecomastia and a right breast mass as seen on previous diagnostic mammogram and ultrasound. Enlarged right axillary lymph node is also seen. Further evaluation with image guided biopsy as previously recommended. Assessment & Plan - Diagnosis (1) Encephalopathy, hepatic Is this a current diagnosis for this admission?: Yes Plan: Continues the lactulose Follow-up with the Dr. Anderson (2) Alcoholic cirrhosis of liver Qualifiers: Ascites presence: unspecified Qualified Code(s): K70.30 - Alcoholic cirrhosis of liver without ascites Is this a current diagnosis for this admission?: Yes Plan: Patient is currently following with Dr. Anderson (3) Hyperammonemia Is this a current diagnosis for this admission?: Yes Plan: Continues lactulose (4) Hypercalcemia Is this a current diagnosis for this admission?: Yes Plan: Continues the IV fluid will start the Lasix (5) Chronic obstructive pulmonary disease Qualifiers: COPD type: unspecified COPD Qualified Code(s): J44.9 - Chronic obstructive pulmonary disease, unspecified Is this a current diagnosis for this admission?: Yes Plan: Continues the PRN nebulizer treatments (6) Esophageal varices in alcoholic cirrhosis Is this a current diagnosis for this admission?: Yes Plan: Continues the IV Protonix (7) History of alcoholism Is this a current diagnosis for this admission?: Yes Plan: Patient is a thiamine and multivitamins (8) Hyperlipidemia Qualifiers: Hyperlipidemia type: unspecified Qualified Code(s): E78.5 - Hyperlipidemia, unspecified Is this a current diagnosis for this admission?: Yes (9) Hypertension Qualifiers: Hypertension type: essential hypertension Qualified Code(s): I10 - Essential (primary) hypertension Is this a current diagnosis for this admission?: Yes (10) Rheumatoid arthritis Qualifiers: Rheumatoid arthritis location: multiple sites Is this a current diagnosis for this admission?: Yes (11) Breast mass, right Is this a current diagnosis for this admission?: Yes Plan: Status post biopsy (12) Gynecomastia Is this a current diagnosis for this admission?: Yes Plan: Most likely from the spironolactone (13) Mass of right axilla Is this a current diagnosis for this admission?: Yes Plan: Status post biopsy - Time Time Spent with patient: 15-24 minutes Level of Care: IMCU Medications reviewed and adjusted accordingly: Yes Anticipated discharge: Home Within: Other - Plan Summary Plan Summary: Discussed with the patient and the regarding the all patient's current test result and the plan very extensive discussions with the patient's today regarding the patient's current conditions
--- NOTE | 2020-02-24 09:39 | PDOC PROGRESS REPORT ---
Subjective Progress Note for:: 02/24/20 Subjective:: 64-year-old male status post right breast biopsy and right axillary biopsy. The patient reports tenderness in the axilla today, however he reports that the bleeding has subsided. He denies chest pain, shortness of breath, fevers, chills, nausea, vomiting, diarrhea, abdominal pain, headache. He does appear slightly confused today. Reason For Visit: WEAKNESS/HYPERCALCEMIA Physical Exam Vital Signs: Temp Pulse Resp BP Pulse Ox 97.4 F 80 18 156/66 H 97 02/24/20 07:58 02/24/20 07:58 02/24/20 07:58 02/24/20 07:58 02/24/20 07:58 Intake & Output 02/23/20 02/24/20 02/25/20 06:59 06:59 06:59 Intake Total 50 Output Total 150 Balance -100 Weight 95.7 kg General appearance: PRESENT: no acute distress, obese Eye exam: PRESENT: scleral icterus Respiratory exam: PRESENT: unlabored. ABSENT: tachypnea Cardiovascular exam: ABSENT: tachycardia GI/Abdominal exam: PRESENT: distended, soft. ABSENT: guarding, rigid, tenderness Rectal exam: PRESENT: deferred Musculoskeletal exam: ABSENT: deformity Neurological exam: PRESENT: awake Psychiatric exam: PRESENT: agitated Focused psych exam: PRESENT: other - Mildly confused Skin exam: PRESENT: other - Right axillary ecchymoses. Results Laboratory Results: 02/24/20 05:57 02/24/20 05:57 02/23/20 02/23/20 02/23/20 11:52 11:52 11:52 WBC 9.0 RBC 3.92 L Hgb 13.5 Hct 38.7 MCV 99 H MCH 34.5 H MCHC 34.9 RDW 14.6 H Plt Count 83 L Seg Neutrophils % Not Reportable Sodium 128.9 L Potassium 5.2 H Chloride 93 L Carbon Dioxide 26 Anion Gap 10 BUN 23 H Creatinine 0.96 Est GFR ( Amer) > 60 Glucose 75 Lactic Acid 4.9 H Calcium 13.2 H* Magnesium Total Bilirubin 3.6 H AST 411 H Alkaline Phosphatase 154 H Ammonia Total Protein 6.6 Albumin 3.1 L Urine Color Urine Appearance Urine pH Ur Specific [place] Urine Protein Urine Glucose (UA) Urine Ketones Urine Blood Urine RBC (Auto) 06/02/23/20 02/23/20 13:28 13:40 14:31 WBC RBC Hgb Hct MCV MCH MCHC RDW Plt Count Seg Neutrophils % Sodium Potassium Chloride Carbon Dioxide Anion Gap BUN Creatinine Est GFR ( Amer) Glucose Lactic Acid Calcium Magnesium 1.6 Total Bilirubin AST Alkaline Phosphatase Ammonia 41.8 H Total Protein Albumin Urine Color [place] Urine Appearance CLEAR Urine pH 5.0 Ur Specific [place] 1.016 Urine Protein 100 H Urine Glucose (UA) NEGATIVE Urine Ketones TRACE H Urine Blood SMALL H Urine RBC (Auto) 1 02/23/20 02/23/20 02/24/20 16:33 22:15 05:57 WBC 9.7 RBC 3.82 L Hgb 13.2 L Hct 37.7 L MCV 99 H MCH 34.6 H MCHC 35.0 RDW 14.8 H Plt Count 73 L Seg Neutrophils % Not Reportable Sodium Potassium Chloride Carbon Dioxide Anion Gap BUN Creatinine Est GFR ( Amer) Glucose Lactic Acid 5.2 H 6.0 H Calcium Magnesium Total Bilirubin AST Alkaline Phosphatase Ammonia Total Protein Albumin Urine Color Urine Appearance Urine pH Ur Specific [place] Urine Protein Urine Glucose (UA) Urine Ketones Urine Blood Urine RBC (Auto) 02/24/20 02/24/20 05:57 05:57 WBC RBC Hgb Hct MCV MCH MCHC RDW Plt Count Seg Neutrophils % Sodium 130.4 L Potassium 5.2 H Chloride 96 L Carbon Dioxide 24 Anion Gap 10 BUN 28 H Creatinine 1.14 Est GFR ( Amer) > 60 Glucose 98 Lactic Acid Calcium 13.8 H* Magnesium Total Bilirubin 4.3 H AST 390 H Alkaline Phosphatase 150 H Ammonia 51.5 H Total Protein 6.7 Albumin 3.2 L Urine Color Urine Appearance Urine pH Ur Specific [place] Urine Protein Urine Glucose (UA) Urine Ketones Urine Blood Urine RBC (Auto) 02/23/20 02/23/20 11:52 13:40 Troponin I Cancelled 0.035 Impressions: Abdomen/Pelvis CT 02/23/20 00:00 IMPRESSION: 1. Tree-in-bud nodularity and bronchial wall thickening in the right lower lobe, suspicious for respiratory bronchiolitis/small airways disease. No focal consolidation or pleural effusion. Given discrete nodularity, a follow-up CT of the chest in 3 months is recommended to evaluate for complete resolution. 2. Nodular contour of the liver and multiple mesenteric venous collaterals consistent with underlying hepatic cirrhosis, with portal hypertension. There is an ill-defined hypo dense lesion in the posterior right hepatic lobe not definitely identified on previous imaging, indeterminate. Further evaluation with hepatic protocol MRI or CT is recommended. 3. Small amount of ascites likely related to history of cirrhosis. 4. Soft tissue density nodule in the left lower quadrant abdomen may represent postoperative change secondary to prior left inguinal hernia repair. Clinical correlation for previous procedure recommended. 5. Colonic diverticulosis without evidence of diverticulitis. 6. Bilateral renal cortical cysts unchanged. 7. Bilateral soft tissue density in the subareolar regions, probably representing a combination of gynecomastia and a right breast mass as seen on previous diagnostic mammogram and ultrasound. Enlarged right axillary lymph node is also seen. Further evaluation with image guided biopsy as previously recommended. Chest CT 02/23/20 00:00 IMPRESSION: 1. Tree-in-bud nodularity and bronchial wall thickening in the right lower lobe, suspicious for respiratory bronchiolitis/small airways disease. No focal consolidation or pleural effusion. Given discrete nodularity, a follow-up CT of the chest in 3 months is recommended to evaluate for complete resolution. 2. Nodular contour of the liver and multiple mesenteric venous collaterals consistent with underlying hepatic cirrhosis, with portal hypertension. There is an ill-defined hypo dense lesion in the posterior right hepatic lobe not definitely identified on previous imaging, indeterminate. Further evaluation with hepatic protocol MRI or CT is recommended. 3. Small amount of ascites likely related to history of cirrhosis. 4. Soft tissue density nodule in the left lower quadrant abdomen may represent postoperative change secondary to prior left inguinal hernia repair. Clinical correlation for previous procedure recommended. 5. Colonic diverticulosis without evidence of diverticulitis. 6. Bilateral renal cortical cysts unchanged. 7. Bilateral soft tissue density in the subareolar regions, probably representing a combination of gynecomastia and a right breast mass as seen on previous diagnostic mammogram and ultrasound. Enlarged right axillary lymph node is also seen. Further evaluation with image guided biopsy as previously recommended. Assessment & Plan - Diagnosis (1) Alcoholic cirrhosis of liver Qualifiers: Ascites presence: unspecified Qualified Code(s): K70.30 - Alcoholic cirrhosis of liver without ascites Is this a current diagnosis for this admission?: Yes (2) Breast mass, right Is this a current diagnosis for this admission?: Yes - Plan Summary Plan Summary: This is a 64-year-old male with a right breast mass and axillary adenopathy. He is status post percutaneous biopsy. The patient experienced bleeding from the biopsy site yesterday, however this has subsided. We are awaiting the pathology to return. He has multiple medical issues. Continue with supportive care for now. Further planning to be determined once biopsy results are available.
[2020-02-24] MEDS ORDERED: SPIRONOLACTONE PO SCH (10:00)
[2020-02-24] MEDS ORDERED: SPIRONOLACTONE 25 MG TABLET PO SCH (10:00)
[2020-02-24] MEDS: PANTOPRAZOLE SODIUM 40 MG VIAL IV SCH ×2 (10:12→22:21)
[2020-02-24] MEDS: NADOLOL 40 MG TABLET PO SCH (10:13)
[2020-02-24] MEDS: MULTIVITAMIN TABLET PO SCH (10:13)
[2020-02-24] MEDS: THIAMINE HCL 100 MG TABLET PO SCH (10:13)
[2020-02-24] MEDS: FUROSEMIDE INJ/PF 20 MG/2 ML SDV IV SCH ×2 (10:14)
[2020-02-24] MEDS: NORMAL SALINE 1000 ML 1,000 ML IV PRN (10:24)
--- NOTE | 2020-02-24 10:36 | EKG REPORT ---
SEVERITY:- ABNORMAL ECG - SINUS RHYTHM RIGHT BUNDLE BRANCH BLOCK : Confirmed by: Katie Frausto 24-Feb-2020 10:35:05
--- NOTE | 2020-02-24 14:07 | RADIOLOGY REPORT (SQ) ---
EXAM DESCRIPTION: NM WHOLE BODY BONE SCAN IMAGES COMPLETED DATE/TIME: 02/24/2020 1:34 pm REASON FOR STUDY: hypercalcium COMPARISON: CT chest and abdomen 02/23/2020 RADIONUCLIDE AND DOSE: 20 millicuries Tc99m MDP. The route of agent administration: Intravenous. ADDITIONAL DRUGS AND DOSES: None. TECHNIQUE: Routine delayed images at 3 hours post radionuclide injection acquired of the bony skelet on including anterior and posterior whole-body projections and additional focused images as needed. LIMITATIONS: None. FINDINGS: BONES: There is small area of focal uptake in the left 9th rib posteriorly. There is foca l uptake in the left side of the lower calvarium. KIDNEYS: Symmetric excretion without obstruction. OTHER: No other significant finding. IMPRESSION: There are 2 areas of abnormal uptake as described. Cannot exclude metastatic disease. COMMENT: Quality measure 147: Current bone scan is compared with any available plain radiographs, p rior bone scans, and CT/MRI. TECHNICAL DOCUMENTATION: JOB ID: [id number] 2010 [employer]- All Rights Reserved Reading location - IP/workstation name: [email or web address]
[2020-02-24 14:22] LABS: PATH REVIEW PATHOLOGIST REVIEWED
--- NOTE | 2020-02-24 19:17 | PDOC CONSULTATION ---
Consultation Consult Date: 02/24/20 Provider Consulted: DERECK CLEMENT History of Present Illness Admission Date/PCP: 02/23/20 16:06 DERECK CLEMENT MD History of Present Illness: KIRK CHINCHILLA is a 64 year old male Patient who was admitted on 02/23/2020 with generalized weakness, feeling tired and being more sleepy. He was admitted for possible encephalopathy. He had a dental procedure within the last 2 weeks that was complicated by some bleeding. He also took some antibiotics at that time. He was still drinking alcohol until the last couple of weeks. He had an EGD on 02/06/2020 for a history of hematemesis. He only had small esophageal varices and only 2 rubber bands were applied. He is currently undergoing evaluation for a right sided breast mass with abnormal mammogram. Upon admission he was started on lactulose every 2 hours and he has been having diarrhea. He had a breast and right axillary biopsy performed yesterday. He continues to be sleepy but easily arousable. He had a bone scan done today that showed abnormal uptake in the left ninth rib and the left side of the low calvarium. A CAT scan on 02/23/2020 showed evidence of COPD, cirrhosis with an ill-defined hypodense lesion in the posterior right hepatic lobe. Small amount of ascites was identified. He also has hypercalcemia. Past Medical History Cardiac Medical History: Reports: Hypertension Denies: Coronary Artery Disease, Myocardial Infarction Pulmonary Medical History: Reports: Chronic Obstructive Pulmonary Disease (COPD) Denies: Asthma, Bronchitis, Pneumonia Neurological Medical History: Denies: Seizures GI Medical History: Reports: Cirrhosis, Gastroesophageal Reflux Disease Musculoskeltal Medical History: Reports: Arthritis Hematology: Denies: Anemia Past Surgical History Past Surgical History: Reports: Cholecystectomy, Other Social History Smoking Status: Former Smoker Frequency of Alcohol Use: Heavy Hx Recreational Drug Use: No Drugs: None Hx Prescription Drug Abuse: No Family History Family History: Reviewed & Not Pertinent Parental Family History Reviewed: No Children Family History Reviewed: NA Sibling(s) Family History Reviewed.: NA Medication/Allergy Home Medications: Multivitamin [Multivitamins] 1 each PO DAILY 06/24/19 Nadolol [Corgard 40 mg Tablet] 40 mg PO QAM 06/24/19 Furosemide [Lasix 20 mg Tablet] 20 mg PO DAILY 02/23/20 Nadolol [Corgard] 20 mg PO QPM 02/23/20 Rituximab [Rituxan Inj 500 mg/50 ml Vial] 375 mg IV ASDIR 02/23/20 Spironolactone [Aldactone] 75 mg PO DAILY 02/23/20 Allergies/Adverse Reactions: morphine Allergy (Intermediate, Verified 02/05/20 17:31) oxycodone Allergy (Intermediate, Verified 02/05/20 17:31) Review of Systems All systems: reviewed and no additional remarkable complaints except as stated Physical Exam Vital Signs: Temp Pulse Resp BP Pulse Ox 98.7 F 86 16 138/53 H 95 02/24/20 16:13 02/24/20 16:23 02/24/20 16:23 02/24/20 16:13 02/24/20 16:23 Intake & Output 02/23/20 02/24/20 02/25/20 06:59 06:59 06:59 Intake Total 1100 Output Total 150 Balance 950 Weight 95.7 kg Exam: General: Patient sleepy but easily arousable. HEENT: There is no pallor or jaundice. PERRLA. Oropharynx normal Respiratory: No chest deformity. He has a dressing over his right breast and axilla. Breath sounds were normal Cardiovascular: Heart sounds 1 and 2 normal with no murmurs. Abdominal: Not distended. Soft and nontender. Liver and spleen not palpable. No ascites demonstrated. Bowel sounds active. Rectal examination was deferred. Extremities: No edema Neurological: Alert and oriented x4. Grossly nonfocal. Normal speech Skin: No significant rash Psychological: Normal affect Results Laboratory Results: 02/24/20 05:57 02/24/20 05:57 02/23/20 02/24/20 02/24/20 22:15 05:57 05:57 WBC 9.7 RBC 3.82 L Hgb 13.2 L Hct 37.7 L MCV 99 H MCH 34.6 H MCHC 35.0 RDW 14.8 H Plt Count 73 L Seg Neutrophils % Not Reportable Sodium 130.4 L Potassium 5.2 H Chloride 96 L Carbon Dioxide 24 Anion Gap 10 BUN 28 H Creatinine 1.14 Est GFR ( Amer) > 60 Glucose 98 Lactic Acid 6.0 H Calcium 13.8 H* Total Bilirubin 4.3 H AST 390 H Alkaline Phosphatase 150 H Ammonia Total Protein 6.7 Albumin 3.2 L 02/24/20 05:57 WBC RBC Hgb Hct MCV MCH MCHC RDW Plt Count Seg Neutrophils % Sodium Potassium Chloride Carbon Dioxide Anion Gap BUN Creatinine Est GFR ( Amer) Glucose Lactic Acid Calcium Total Bilirubin AST Alkaline Phosphatase Ammonia 51.5 H Total Protein Albumin 02/23/20 02/23/20 11:52 13:40 Troponin I Cancelled 0.035 Impressions: Abdomen/Pelvis CT 02/23/20 00:00 IMPRESSION: 1. Tree-in-bud nodularity and bronchial wall thickening in the right lower lobe, suspicious for respiratory bronchiolitis/small airways disease. No focal consolidation or pleural effusion. Given discrete nodularity, a follow-up CT of the chest in 3 months is recommended to evaluate for complete resolution. 2. Nodular contour of the liver and multiple mesenteric venous collaterals consistent with underlying hepatic cirrhosis, with portal hypertension. There is an ill-defined hypo dense lesion in the posterior right hepatic lobe not definitely identified on previous imaging, indeterminate. Further evaluation with hepatic protocol MRI or CT is recommended. 3. Small amount of ascites likely related to history of cirrhosis. 4. Soft tissue density nodule in the left lower quadrant abdomen may represent postoperative change secondary to prior left inguinal hernia repair. Clinical correlation for previous procedure recommended. 5. Colonic diverticulosis without evidence of diverticulitis. 6. Bilateral renal cortical cysts unchanged. 7. Bilateral soft tissue density in the subareolar regions, probably represe nting a combination of gynecomastia and a right breast mass as seen on previous diagnostic mammogram and ultrasound. Enlarged right axillary lymph node is also seen. Further evaluation with image guided biopsy as previously recommended. Body Scan Nuclear Medicine 02/23/20 00:00 IMPRESSION: There are 2 areas of abnormal uptake as described. Cannot exclude metastatic disease. Chest CT 02/23/20 00:00 IMPRESSION: 1. Tree-in-bud nodularity and bronchial wall thickening in the right lower lobe, suspicious for respiratory bronchiolitis/small airways disease. No focal consolidation or pleural effusion. Given discrete nodularity, a follow-up CT of the chest in 3 months is recommended to evaluate for complete resolution. 2. Nodular contour of the liver and multiple mesenteric venous collaterals consistent with underlying hepatic cirrhosis, with portal hypertension. There is an ill-defined hypo dense lesion in the posterior right hepatic lobe not definitely identified on previous imaging, indeterminate. Further evaluation with hepatic protocol MRI or CT is recommended. 3. Small amount of ascites likely related to history of cirrhosis. 4. Soft tissue density nodule in the left lower quadrant abdomen may represent postoperative change secondary to prior left inguinal hernia repair. Clinical correlation for previous procedure recommended. 5. Colonic diverticulosis without evidence of diverticulitis. 6. Bilateral renal cortical cysts unchanged. 7. Bilateral soft tissue density in the subareolar regions, probably represen ting a combination of gynecomastia and a right breast mass as seen on previous diagnostic mammogram and ultrasound. Enlarged right axillary lymph node is also seen. Further evaluation with image guided biopsy as previously recommended. Assessment & Plan - Diagnosis (1) Encephalopathy, hepatic Is this a current diagnosis for this admission?: Yes Plan: His symptoms on presentation is consistent with encephalopathy even though his ammonia was not that high. His encephalopathy may be related to medications received during the recent dental surgery, or possibly related to the right breast lesion. He will continue with lactulose to produce 2-3 loose bowel movements a day. Any laboratory abnormalities will be corrected and we will be cautious about new medications. (2) Esophageal varices in alcoholic cirrhosis Is this a current diagnosis for this admission?: Yes Plan: He had 2 rubber band placed 3 weeks ago and will continue with nadolol. His H&H is good (3) Alcoholic cirrhosis of liver Qualifiers: Ascites presence: unspecified Qualified Code(s): K70.30 - Alcoholic cirrhosis of liver without ascites Is this a current diagnosis for this admission?: Yes (4) Gynecomastia Is this a current diagnosis for this admission?: Yes Plan: Pathology of his breast and axillary biopsies are pending (5) Hypercalcemia Is this a current diagnosis for this admission?: Yes (6) Chronic obstructive pulmonary disease Qualifiers: COPD type: unspecified COPD Qualified Code(s): J44.9 - Chronic obstructive pulmonary disease, unspecified Is this a current diagnosis for this admission?: Yes
[2020-02-25] MEDS: NORMAL SALINE 1000 ML 1,000 ML IV PRN ×2 (01:27→14:28)
[2020-02-25] MEDS: CEFEPIME 1 GM/D5W RTU 1 GM/50 ML RTUPB IV SCH ×2 (05:47→17:18)
[2020-02-25 06:04] LABS: HEMATOCRIT 34.6 % (37.9-51.0); HEMOGLOBIN 12.1 g/dL (13.5-17.0); MEAN CORPUSCULAR HEMOGLOBIN 34.4 pg (27.0-33.4); MEAN CORPUSCULAR VOLUME 98 fl (80-97); RED BLOOD COUNT 3.52 10^6/uL (4.35-5.55); RED CELL DISTRIBUTION WIDTH 15.4 % (11.5-14.0); WHITE BLOOD COUNT 8.7 10^3/uL (4.0-10.5)
[2020-02-25 06:21] LABS: ALKALINE PHOSPHATASE 145 U/L (38-126); ANION GAP 8 (5-19); ASPARTATE AMINO TRANSFERASE 375 U/L (17-59); BILIRUBIN,TOTAL 3.7 mg/dL (0.2-1.3); BLOOD UREA NITROGEN 35 mg/dL (7-20); CARBON DIOXIDE 26 mmol/L (22-30); CHLORIDE 101 mmol/L (98-107); GLUCOSE 79 mg/dL (75-110); POTASSIUM 4.9 mmol/L (3.6-5.0); TOTAL PROTEIN 6.3 g/dL (6.3-8.2)
[2020-02-25 06:33] LABS: CALCIUM 13.5 mg/dL (8.4-10.2)
[2020-02-25 06:38] LABS: PLATELET COUNT 70 10^3/uL (150-450)
[2020-02-25 06:44] LABS: ABSOLUTE LYMPHOCYTES# (MANUAL) 0.5 10^3/uL (0.5-4.7); ABSOLUTE MONOCYTES # (MANUAL) 0.9 10^3/uL (0.1-1.4); BAND NEUTROPHILS % (MANUAL) 2 % (3-5); BASOPHILS % (MANUAL) 2 % (0-2); EOSINOPHILS % (MANUAL) 2 % (0-6); LYMPHOCYTES % (MANUAL) 6 % (13-45); MONOCYTES % (MANUAL) 10 % (3-13); MYELOCYTES % (MANUAL) 3 % (0); NUCLEATED RED BLOOD CELLS 1 /100 WBC (0); SEGMENTED NEUTROPHILS % (MAN) 75 % (42-78); TOTAL CELLS COUNTED 100
[2020-02-25 06:45] LABS: TOXIC GRANULATION SLIGHT; TOXIC VACUOLATION PRESENT
[2020-02-25 06:48] LABS: ANISOCYTOSIS SLIGHT
[2020-02-25 06:49] LABS: PLATELET COMMENT DECREASED; TEAR DROP CELLS SLIGHT
[2020-02-25 06:52] LABS: POLYCHROMASIA SLIGHT
--- NOTE | 2020-02-25 09:12 | PDOC CONSULTATION ---
Consultation Consult Date: 02/25/20 Attending physician:: MELANIE SALEEM Provider Consulted: PATIENCE GARCIA Consult reason:: Right breast mass, axillary adenopathy, hypercalcemia, bone lesions History of Present Illness Admission Date/PCP: 02/23/20 16:06 DERECK CLEMENT MD Patient complains of: Confusion, right breast mass History of Present Illness: KIRK CHINCHILLA is a 64 year old male longstanding history of cirrhosis, EtOH abuse, has been followed by Dr. Clement for this, did have esophageal varices noted on EGD, has told physicians that he quit drinking on 02/02/2020, but has had several days of confusion prior to coming in. Upon presentation his calcium level was in the 13-14 range, he had a palpable right breast mass but had longstanding history of gynecomastia because of the cirrhosis, but this breast mass on the right was apparently new, upon imaging he had a right breast mass as well as axillary adenopathy, and had both of these areas biopsied upon admission and pathology is pending, he had bone scan as well as CT of the chest abdomen pelvis. CT of the chest abdomen pelvis does not show any other lesions other than the right breast mass and axillary mass, bone scan however does show uptake in the ribs as well as calvarium possibly consistent with metastatic deposits. Past Medical History Cardiac Medical History: Reports: Hypertension Denies: Coronary Artery Disease, Myocardial Infarction Pulmonary Medical History: Reports: Chronic Obstructive Pulmonary Disease (COPD) Denies: Asthma, Bronchitis, Pneumonia Neurological Medical History: Denies: Seizures GI Medical History: Reports: Cirrhosis, Gastroesophageal Reflux Disease Musculoskeltal Medical History: Reports: Arthritis Hematology: Denies: Anemia Past Surgical History Past Surgical History: Reports: Cholecystectomy, Other Social History Smoking Status: Former Smoker Frequency of Alcohol Use: Heavy Hx Recreational Drug Use: No Drugs: None Hx Prescription Drug Abuse: No - Advance Directive Resuscitation Status: Full Code Family History Family History: Reviewed & Not Pertinent Parental Family History Reviewed: Yes Children Family History Reviewed: Yes Sibling(s) Family History Reviewed.: Yes Medication/Allergy Home Medications: Multivitamin [Multivitamins] 1 each PO DAILY 06/24/19 Nadolol [Corgard 40 mg Tablet] 40 mg PO QAM 06/24/19 Furosemide [Lasix 20 mg Tablet] 20 mg PO DAILY 02/23/20 Nadolol [Corgard] 20 mg PO QPM 06/22/20 Rituximab [Rituxan Inj 500 mg/50 ml Vial] 375 mg IV ASDIR 02/23/20 Spironolactone [Aldactone] 75 mg PO DAILY 02/23/20 Allergies/Adverse Reactions: morphine Allergy (Intermediate, Verified 02/05/20 17:31) oxycodone Allergy (Intermediate, Verified 02/05/20 17:31) Review of Systems ROS unobtainable: Due to mental status Physical Exam Vital Signs: Temp Pulse Resp BP Pulse Ox 97.2 F 83 18 155/61 H 100 02/25/20 07:46 02/25/20 07:46 02/25/20 07:46 02/25/20 07:46 02/25/20 07:46 Intake & Output 02/24/20 02/25/20 02/26/20 06:59 06:59 06:59 Intake Total 1100 1050 Output Total 150 Balance 950 1050 Weight 95.7 kg 94.7 kg General appearance: PRESENT: no acute distress, well-developed, well-nourished Head exam: PRESENT: atraumatic, normocephalic Eye exam: PRESENT: conjunctiva pink, EOMI, PERRLA. ABSENT: scleral icterus Ear exam: PRESENT: normal external ear exam Mouth exam: PRESENT: moist, tongue midline Neck exam: ABSENT: carotid bruit, JVD, lymphadenopathy, thyromegaly Respiratory exam: PRESENT: clear to auscultation arnulfo. ABSENT: rales, rhonchi, wheezes Cardiovascular exam: PRESENT: RRR. ABSENT: diastolic murmur, rubs, systolic murmur Pulses: PRESENT: normal dorsalis pedis pul Vascular exam: PRESENT: normal capillary refill GI/Abdominal exam: PRESENT: normal bowel sounds, soft. ABSENT: distended, guarding, mass, organolmegaly, rebound, tenderness Rectal exam: PRESENT: deferred Extremities exam: PRESENT: full ROM. ABSENT: calf tenderness, clubbing, pedal edema Neurological exam: PRESENT: alert, awake, oriented to person, oriented to place, oriented to time, oriented to situation, CN II-XII grossly intact. ABSENT: motor sensory deficit Psychiatric exam: PRESENT: appropriate affect, normal mood. ABSENT: homicidal ideation, suicidal ideation Skin exam: PRESENT: dry, intact, warm. ABSENT: cyanosis, rash Results Laboratory Results: 02/25/20 05:44 02/25/20 05:44 02/25/20 02/25/20 02/25/20 05:44 05:44 05:44 WBC 8.7 RBC 3.52 L Hgb 12.1 L Hct 34.6 L MCV 98 H MCH 34.4 H MCHC 35.0 RDW 15.4 H Plt Count 70 L Seg Neutrophils % Not Reportable Sodium 135.1 L Potassium 4.9 Chloride 101 Carbon Dioxide 26 Anion Gap 8 BUN 35 H Creatinine 1.36 H Est GFR ( Amer) > 60 Glucose 79 Calcium 13.5 H* Total Bilirubin 3.7 H AST 375 H Alkaline Phosphatase 145 H Ammonia 20.1 Total Protein 6.3 Albumin 3.0 L 02/23/20 14:31 Clean Catch Midstream Urine Culture - Final NO GROWTH 2 DAYS 02/23/20 02/23/20 11:52 13:40 Troponin I Cancelled 0.035 Impressions: Abdomen/Pelvis CT 02/23/20 00:00 IMPRESSION: 1. Tree-in-bud nodularity and bronchial wall thickening in the right lower lobe, suspicious for respiratory bronchiolitis/small airways disease. No focal consolidation or pleural effusion. Given discrete nodularity, a follow-up CT of the chest in 3 months is recommended to evaluate for complete resolution. 2. Nodular contour of the liver and multiple mesenteric venous collaterals consistent with underlying hepatic cirrhosis, with portal hypertension. There is an ill-defined hypo dense lesion in the posterior right hepatic lobe not definitely identified on previous imaging, indeterminate. Further evaluation with hepatic protocol MRI or CT is recommended. 3. Small amount of ascites likely related to history of cirrhosis. 4. Soft tissue density nodule in the left lower quadrant abdomen may represent postoperative change secondary to prior left inguinal hernia repair. Clinical correlation for previous procedure recommended. 5. Colonic diverticulosis without evidence of diverticulitis. 6. Bilateral renal cortical cysts unchanged. 7. Bilateral soft tissue density in the subareolar regions, probably representing a combination of gynecomastia and a right breast mass as seen on previous diagnostic mammogram and ultrasound. Enlarged right axillary lymph node is also seen. Further evaluation with image guided biopsy as previously recommended. Body Scan Nuclear Medicine 02/23/20 00:00 IMPRESSION: There are 2 areas of abnormal uptake as described. Cannot exclude metastatic disease. Chest CT 02/23/20 00:00 IMPRESSION: 1. Tree-in-bud nodularity and bronchial wall thickening in the right lower lobe, suspicious for respiratory bronchiolitis/small airways disease. No focal consolidation or pleural effusion. Given discrete nodularity, a follow-up CT of the chest in 3 months is recommended to evaluate for complete resolution. 2. Nodular contour of the liver and multiple mesenteric venous collaterals consistent with underlying hepatic cirrhosis, with portal hypertension. There is an ill-defined hypo dense lesion in the posterior right hepatic lobe not definitely identified on previous imaging, indeterminate. Further evaluation with hepatic protocol MRI or CT is recommended. 3. Small amount of ascites likely related to history of cirrhosis. 4. Soft tissue density nodule in the left lower quadrant abdomen may represent postoperative change secondary to prior left inguinal hernia repair. Clinical c orrelation for previous procedure recommended. 5. Colonic diverticulosis without evidence of diverticulitis. 6. Bilateral renal cortical cysts unchanged. 7. Bilateral soft tissue density in the subareolar regions, probably representing a combination of gynecomastia and a right breast mass as seen on previous diagnostic mammogram and ultrasound. Enlarged right axillary lymph node is also seen. Further evaluation with image guided biopsy as previously recommended. Assessment & Plan - Diagnosis (1) Hypercalcemia Is this a current diagnosis for this admission?: Yes Plan: Most likely cause of acute confusion, today gave patient dose of Zometa 4 mg IV x1. Continue with IV fluids, agree with Lasix to try and get calcium down. Hopefully once calcium gets under 10 his confusion will greatly improve. However, confusion could be related to some portion of hepatic encephalopathy al so. (2) Breast mass, right Is this a current diagnosis for this admission?: Yes Plan: Right breast mass with axillary adenopathy concerning for primary breast cancer with axillary spread, pathology pending however. - Time Time Spent: Greater than 70 Minutes
--- NOTE | 2020-02-25 09:17 | PDOC PROGRESS REPORT ---
Subjective Progress Note for:: 02/25/20 Reason For Visit: WEAKNESS/HYPERCALCEMIA Physical Exam Vital Signs: Temp Pulse Resp BP Pulse Ox 97.2 F 83 18 155/61 H 100 02/25/20 07:46 02/25/20 07:46 02/25/20 07:46 02/25/20 07:46 02/25/20 07:46 Intake & Output 02/24/20 02/25/20 02/26/20 06:59 06:59 06:59 Intake Total 1100 1050 Output Total 150 Balance 950 1050 Weight 95.7 kg 94.7 kg General appearance: PRESENT: mild distress Head exam: PRESENT: normocephalic Eye exam: PRESENT: EOMI Mouth exam: PRESENT: moist Teeth exam: PRESENT: poor dentation Neck exam: PRESENT: full ROM Respiratory exam: PRESENT: clear to auscultation arnulfo Cardiovascular exam: PRESENT: RRR, other - rt chest wall core bx site bleeding controlled iwth 1 suture of 2-0 nylon Breast: PRESENT: Ecchymosis, Lesion, Drainage GI/Abdominal exam: PRESENT: ascites, soft Rectal exam: PRESENT: deferred Extremities exam: PRESENT: full ROM Musculoskeletal exam: PRESENT: full ROM Neurological exam: PRESENT: awake Psychiatric exam: PRESENT: agitated, appropriate affect Skin exam: PRESENT: dry Results Laboratory Results: 02/25/20 05:44 02/25/20 05:44 02/25/20 02/25/20 02/25/20 05:44 05:44 05:44 WBC 8.7 RBC 3.52 L Hgb 12.1 L Hct 34.6 L MCV 98 H MCH 34.4 H MCHC 35.0 RDW 15.4 H Plt Count 70 L Seg Neutrophils % Not Reportable Sodium 135.1 L Potassium 4.9 Chloride 101 Carbon Dioxide 26 Anion Gap 8 BUN 35 H Creatinine 1.36 H Est GFR ( Amer) > 60 Glucose 79 Calcium 13.5 H* Total Bilirubin 3.7 H AST 375 H Alkaline Phosphatase 145 H Ammonia 20.1 Total Protein 6.3 Albumin 3.0 L 02/23/20 14:31 Clean Catch Midstream Urine Culture - Final NO GROWTH 2 DAYS 02/23/20 02/23/20 11:52 13:40 Troponin I Cancelled 0.035 Impressions: Abdomen/Pelvis CT 02/23/20 00:00 IMPRESSION: 1. Tree-in-bud nodularity and bronchial wall thickening in the right lower lobe, suspicious for respiratory bronchiolitis/small airways disease. No focal consolidation or pleural effusion. Given discrete nodularity, a follow-up CT of the chest in 3 months is recommended to evaluate for complete resolution. 2. Nodular contour of the liver and multiple mesenteric venous collaterals consistent with underlying hepatic cirrhosis, with portal hypertension. There is an ill-defined hypo dense lesion in the posterior right hepatic lobe not definitely identified on previous imaging, indeterminate. Further evaluation with hepatic protocol MRI or CT is recommended. 3. Small amount of ascites likely related to history of cirrhosis. 4. Soft tissue density nodule in the left lower quadrant abdomen may represent postoperative change secondary to prior left inguinal hernia repair. Clinical correlation for previous procedure recommended. 5. Colonic diverticulosis without evidence of diverticulitis. 6. Bilateral renal cortical cysts unchanged. 7. Bilateral soft tissue density in the subareolar regions, probably representing a combination of gynecomastia and a right breast mass as seen on previous diagnostic mammogram and ultrasound. Enlarged right axillary lymph node is also seen. Further evaluation with image guided biopsy as previously recommended. Body Scan Nuclear Medicine 02/23/20 00:00 IMPRESSION: There are 2 areas of abnormal uptake as described. Cannot exclude metastatic disease. Chest CT 02/23/20 00:00 IMPRESSION: 1. Tree-in-bud nodularity and bronchial wall thickening in the right lower lobe, suspicious for respiratory bronchiolitis/small airways disease. No focal consolidation or pleural effusion. Given discrete nodularity, a follow-up CT of the chest in 3 months is recommended to evaluate for complete resolution. 2. Nodular contour of the liver and multiple mesenteric venous collaterals consistent with underlying hepatic cirrhosis, with portal hypertension. There is an ill-defined hypo dense lesion in the posterior right hepatic lobe not definitely identified on previous imaging, indeterminate. Further evaluation with hepatic protocol MRI or CT is recommended. 3. Small amount of ascites likely related to history of cirrhosis. 4. Soft tissue density nodule in the left lower quadrant abdomen may represent postoperative change secondary to prior left inguinal hernia repair. Clinical correlation for previous procedure recommended. 5. Colonic diverticulosis without evidence of diverticulitis. 6. Bilateral renal cortical cysts unchanged. 7. Bilateral soft tissue density in the subareolar regions, probably representing a combination of gynecomastia and a right breast mass as seen on p revious diagnostic mammogram and ultrasound. Enlarged right axillary lymph node is also seen. Further evaluation with image guided biopsy as previously recommended. Assessment & Plan - Plan Summary Plan Summary: s/p core bx of axillry and rt breast mass site bleed controlled iwth nylon suture awaiting pathology.
[2020-02-25] MEDS ORDERED: ZOLEDRONIC ACID 4 MG/100 ML RTU IV ONE (09:30)
[2020-02-25] MEDS: FUROSEMIDE INJ/PF 20 MG/2 ML SDV IV SCH (10:52)
[2020-02-25] MEDS: THIAMINE HCL 100 MG TABLET PO SCH ×2 (10:52→10:56)
[2020-02-25] MEDS: PANTOPRAZOLE SODIUM 40 MG VIAL IV SCH ×2 (10:52→21:46)
[2020-02-25] MEDS: MULTIVITAMIN TABLET PO SCH ×2 (10:52→10:55)
[2020-02-25] MEDS: NADOLOL 40 MG TABLET PO SCH ×2 (10:53→10:56)
--- NOTE | 2020-02-25 11:48 | RADIOLOGY REPORT (SQ) ---
EXAM DESCRIPTION: CT HEAD WITHOUT IMAGES COMPLETED DATE/TIME: 02/25/2020 9:30 am REASON FOR STUDY: ams COMPARISON: None. TECHNIQUE: Axial images acquired through the brain without intravenous contrast. Images reviewed wi th bone, brain and subdural windows. Additional sagittal and coronal reconstructions were generated. Images stored on PACS. All CT scanners at this facility use dose modulation, iterative reconstruction, and/or weight based d osing when appropriate to reduce radiation dose to as low as reasonably achievable (ALARA). [facility]: Dose Right [facility]: CareDose [facility]: Dose Right [facility]: Teradose 4D [facility]: Aquaporin RADIATION DOSE: CT Rad equipment meets quality standard of care and radiation dose reduction techniq ues were employed. CTDIvol: 48.6 mGy. DLP: 930 mGy-cm. mGy. LIMITATIONS: None. FINDINGS: VENTRICLES: Normal size and configuration. CEREBRUM: No masses. No hemorrhage. No midline shift. Areas of low density in the white matter mos t likely due to chronic micro-vascular ischemic change. No evidence for acute infarction. CEREBELLUM: No masses. No hemorrhage. No alteration of density. No evidence for acute infarction. EXTRAAXIAL SPACES: There is a right temporal to right frontal epidural blood collection demonstrating evolving blood products consistent with subacute, continuing hemorrhage. ORBITS AND GLOBE: No intra- or extraconal masses. Normal contour of globe without masses. CALVARIUM: No fracture. PARANASAL SINUSES: The right maxillary and right sphenoid compartment demonstrate complete opacificat ion. Scattered bilateral ethmoid opacities. Small sphenoid fluid collection. Scant right mastoid e ffusion. SOFT TISSUES: No mass or hematoma. OTHER: No other significant finding. IMPRESSION: Subacute, continuing right temporal epidural hemorrhage. Paranasal sinusitis. Mild rizwan rovascular ischemic changes. EVIDENCE OF ACUTE STROKE: NO. COMMENT: Pertinent findings on the imaging study reported as a CRITICAL RESULT to MELANIE SALEEM MD at11:39 on 02/25/2020. Category of Critical Result: Intracranial hemorrhage TECHNICAL DOCUMENTATION: JOB ID: [id number] Quality ID # [id number]: Final reports with documentation of one or more dose reduction techniques (e.g., Au tomated exposure control, adjustment of the mA and/or kV according to patient size, use of iterative reconstruction technique) 2010 [employer]- All Rights Reserved Reading location - IP/workstation name: [email or web address]
--- NOTE | 2020-02-25 12:20 | PDOC TRANSFER SUMMARY ---
General Admission Date/PCP: 02/23/20 16:06 DERECK CLEMENT MD Admission Date: 02/23/20 Transfer Date: 02/25/20 Accepting Facility: [facility] Resuscitation Status: Full Code - Transfer Diagnosis (1) Encephalopathy, hepatic Is this a current diagnosis for this admission?: Yes (2) Alcoholic cirrhosis of liver Is this a current diagnosis for this admission?: Yes (3) Hyperammonemia Is this a current diagnosis for this admission?: Yes (4) Hypercalcemia Is this a current diagnosis for this admission?: Yes (5) Chronic obstructive pulmonary disease Is this a current diagnosis for this admission?: Yes (6) Esophageal varices in alcoholic cirrhosis Is this a current diagnosis for this admission?: Yes (7) History of alcoholism Is this a current diagnosis for this admission?: Yes (8) Hyperlipidemia Is this a current diagnosis for this admission?: Yes (9) Hypertension Is this a current diagnosis for this admission?: Yes (10) Rheumatoid arthritis Is this a current diagnosis for this admission?: Yes (11) Breast mass, right Is this a current diagnosis for this admission?: Yes (12) Gynecomastia Is this a current diagnosis for this admission?: Yes (13) Mass of right axilla Is this a current diagnosis for this admission?: Yes (14) Epidural hematoma Is this a current diagnosis for this admission?: Yes - Transfer Medications Home Medications: Multivitamin [Multivitamins] 1 each PO DAILY 06/24/19 Nadolol [Corgard 40 mg Tablet] 40 mg PO QAM 06/24/19 Furosemide [Lasix 20 mg Tablet] 20 mg PO DAILY 02/23/20 Nadolol [Corgard] 20 mg PO QPM 02/23/20 Rituximab [Rituxan Inj 500 mg/50 ml Vial] 375 mg IV ASDIR 02/23/20 Spironolactone [Aldactone] 75 mg PO DAILY 02/23/20 Transfer Medications: Current Medications Acetaminophen (Tylenol 325 Mg Tablet) 650 mg PO Q4HP PRN PRN Reason: FOR PAIN OR TEMP Stop: 03/24/20 16:01 Albuterol/Ipratropium (Duoneb 3 Ml Ampul) 3 ml NEB RTQ6HP PRN PRN Reason: SHORTNESS OF BREATH Stop: 03/24/20 16:01 Furosemide (Lasix Inj/Pf 20 Mg/2 Ml Sdv) 20 mg IV DAILY SHU Stop: 03/25/20 07:14 Last Admin: 02/25/20 10:52 Dose: 20 mg Documented by: Sodium Chloride (Nacl 0.9% 1000 Ml Iv Soln) 1,000 mls @ 100 mls/hr IV CONTINUOUS PRN PRN Reason: THIS MED IS NOT "PRN" Stop: 03/24/20 16:01 Last Admin: 02/25/20 01:27 Dose: 100 mls/hr Documented by: Cefepime HCl (Maxipime Rtu 1 Gm/D5w 50 Ml Premix Bag) 1 gm in 50 mls @ 100 mls/hr IV Q12A SHU Stop: 03/01/20 17:59 Last Admin: 02/25/20 05:47 Dose: 100 mls/hr, 100 mls/hr Documented by: Multivitamins (Tab-A-Nikole (Multiple Vitamin) Tablet) 1 tab PO DAILY SHU Stop: 03/25/20 09:59 Last Admin: 02/25/20 10:55 Dose: Not Given Documented by: Nadolol (Corgard 40 Mg Tablet) 40 mg PO QAM SHU Stop: 03/25/20 07:59 Last Admin: 02/25/20 10:56 Dose: Not Given Documented by: Pantoprazole Sodium (Protonix Iv Inj 40 Mg Vial) 40 mg IV Q12 SHU Stop: 03/01/20 21:59 Last Admin: 02/25/20 10:52 Dose: 40 mg Documented by: Thiamine HCl (Thiamine 100 Mg Tablet) 200 mg PO DAILY SHU Stop: 03/25/20 09:59 Last Admin: 02/25/20 10:56 Dose: Not Given Documented by: - Allergies Allergies/Adverse Reactions: morphine Allergy (Intermediate, Verified 02/05/20 17:31) oxycodone Allergy (Intermediate, Verified 02/05/20 17:31) Hospital Course Hospital Course: This 64-year-old maleWith a history of the alcoholic cirrhosis of the liver history of the hypertensions history of the esophageal varices and thrombocytopenia recently have endoscopy done in February 06 And was all stable and a COVID test was done at that time was also negative According to the patient and her since February 01 patient stopped drinking the alcohol used to drink 12 beers per day and then after the patient is getting more lethargic and sleepy and weak Patient also found a right breast mass with gynecomastia and patient's calcium level was elevated Patients came to the emergency department couple of days because of been more weak and lethargic alert awake but more sleepy in the emergency department patient's ammonia level was 41 thought hepatic encephalopathy per GI start on the lactulose Patient's also giving IV fluid because of the hypercalcemia also have a CT scan of the chest abdomen pelvis and a bone scan was done with so some Suspicious lesion on the bone scan Patient's today's bedside in the floor still very sleepy alert awake order the CT of the head with so the epidural hematoma with subacute I think patients with this lethargic and more sleepiness coming from the most l ikely from epidural hemorrhage and with the combination of the hypercalcemia and some mild hepatic encephalopathy At this point very extensive discussions with the patient's transfer the patient to tertiary center to the neurosurgical evaluations Patient is currently hemodynamically stable blood pressure is 155 range O2 sat is 98% on 2 L nasal cannula patient is currently on IV fluid we also ordered a 1 unit of platelet count with the platelet is 73 this morning due to the cirrhosis of the liver Physical Exam Vital Signs: Temp Pulse Resp BP Pulse Ox 97.3 F 76 16 124/53 L 100 02/25/20 11:23 02/25/20 11:23 02/25/20 11:23 02/25/20 11:23 02/25/20 11:23 Intake & Output 02/24/20 02/25/20 02/26/20 06:59 06:59 06:59 Intake Total 1100 1050 Output Total 150 Balance 950 1050 Weight 95.7 kg 94.7 kg General appearance: PRESENT: no acute distress, well-developed, well-nourished Head exam: PRESENT: atraumatic, normocephalic Eye exam: PRESENT: conjunctiva pink, EOMI, PERRLA. ABSENT: scleral icterus Ear exam: PRESENT: normal external ear exam Mouth exam: PRESENT: moist, tongue midline Neck exam: ABSENT: carotid bruit, JVD, lymphadenopathy, thyromegaly Respiratory exam: PRESENT: clear to auscultation arnulfo. ABSENT: rales, rhonchi, wheezes Cardiovascular exam: PRESENT: RRR. ABSENT: diastolic murmur, rubs, systolic murmur Pulses: PRESENT: normal dorsalis pedis pul Vascular exam: PRESENT: normal capillary refill GI/Abdominal exam: PRESENT: normal bowel sounds, soft. ABSENT: distended, guarding, mass, organolmegaly, rebound, tenderness Rectal exam: PRESENT: deferred Extremities exam: PRESENT: full ROM. ABSENT: calf tenderness, clubbing, pedal edema Neurological exam: PRESENT: alert, awake, oriented to person, oriented to place. ABSENT: motor sensory deficit Psychiatric exam: PRESENT: appropriate affect, normal mood. ABSENT: homicidal ideation, suicidal ideation Skin exam: PRESENT: dry, intact, warm. ABSENT: cyanosis, rash Results Laboratory Results: 02/25/20 05:44 02/25/20 05:44 02/25/20 02/25/20 02/25/20 05:44 05:44 05:44 WBC 8.7 RBC 3.52 L Hgb 12.1 L Hct 34.6 L MCV 98 H MCH 34.4 H MCHC 35.0 RDW 15.4 H Plt Count 70 L Seg Neutrophils % Not Reportable Sodium 135.1 L Potassium 4.9 Chloride 101 Carbon Dioxide 26 Anion Gap 8 BUN 35 H Creatinine 1.36 H Est GFR ( Amer) > 60 Glucose 79 Calcium 13.5 H* Total Bilirubin 3.7 H AST 375 H Alkaline Phosphatase 145 H Ammonia 20.1 Total Protein 6.3 Albumin 3.0 L PTH Intact 02/25/20 10:50 WBC RBC Hgb Hct MCV MCH MCHC RDW Plt Count Seg Neutrophils % Sodium Potassium Chloride Carbon Dioxide Anion Gap BUN Creatinine Est GFR ( Amer) Glucose Calcium Total Bilirubin AST Alkaline Phosphatase Ammonia Total Protein Albumin PTH Intact 6.1 L 02/23/20 14:31 Clean Catch Midstream Urine Culture - Final NO GROWTH 2 DAYS 02/23/20 02/23/20 11:52 13:40 Troponin I Cancelled 0.035 Impressions: Abdomen/Pelvis CT 02/23/20 00:00 IMPRESSION: 1. Tree-in-bud nodularity and bronchial wall thickening in the right lower lobe, suspicious for respiratory bronchiolitis/small airways disease. No focal consolidation or pleural effusion. Given discrete nodularity, a follow-up CT of the chest in 3 months is recommended to evaluate for complete resolution. 2. Nodular contour of the liver and multiple mesenteric venous collaterals consistent with underlying hepatic cirrhosis, with portal hypertension. There is an ill-defined hypo dense lesion in the posterior right hepatic lobe not definitely identified on previous imaging, indeterminate. Further evaluation with hepatic protocol MRI or CT is recommended. 3. Small amount of ascites likely related to history of cirrhosis. 4. Soft tissue density nodule in the left lower quadrant abdomen may represent postoperative change secondary to prior left inguinal hernia repair. Clinical correlation for previous procedure recommended. 5. Colonic diverticulosis without evidence of diverticulitis. 6. Bilateral renal cortical cysts unchanged. 7. Bilateral soft tissue density in the subareolar regions, probably representing a combination of gynecomastia and a right breast mass as seen on previous diagnostic mammogram and ultrasound. Enlarged right axillary lymph node is also seen. Further evaluation with image guided biopsy as previously recommended. Body Scan Nuclear Medicine 02/23/20 00:00 IMPRESSION: There are 2 areas of abnormal uptake as described. Cannot exclude metastatic disease. Chest CT 02/23/20 00:00 IMPRESSION: 1. Tree-in-bud nodularity and bronchial wall thickening in the right lower lobe, suspicious for respiratory bronchiolitis/small airways disease. No focal consolidation or pleural effusion. Given discrete nodularity, a follow-up CT of the chest in 3 months is recommended to evaluate for complete resolution. 2. Nodular contour of the liver and multiple mesenteric venous collaterals consistent with underlying hepatic cirrhosis, with portal hypertension. There is an ill-defined hypo dense lesion in the posterior right hepatic lobe not definitely identified on previous imaging, indeterminate. Further evaluation with hepatic protocol MRI or CT is recommended. 3. Small amount of ascites likely related to history of cirrhosis. 4. Soft tissue density nodule in the left lower quadrant abdomen may represent postoperative change secondary to prior left inguinal hernia repair. Clinical correlation for previous procedure recommended. 5. Colonic diverticulosis without evidence of diverticulitis. 6. Bilateral renal cortical cysts unchanged. 7. Bilateral soft tissue density in the subareolar regions, probably representing a combination of gynecomastia and a right breast mass as seen on previous diagnostic mammogram and ultrasound. Enlarged right axillary lymph node is also seen. Further evaluation with image guided biopsy as previously recommended. Head CT 02/25/20 00:00 IMPRESSION: Subacute, continuing right temporal epidural hemorrhage. Paranasal sinusitis. Mild microvascular ischemic changes. EVIDENCE OF ACUTE STROKE: NO. Plan Time Spent: Greater than 30 Minutes - Transfer the patient's to the [facility]
[2020-02-25 19:16] LABS: HEMATOCRIT 30.9 % (37.9-51.0); MEAN CORPUSCULAR HEMOGLOBIN 35.4 pg (27.0-33.4); MEAN CORPUSCULAR HGB CONC 35.7 g/dL (32.0-36.0); MEAN CORPUSCULAR VOLUME 99 fl (80-97); PLATELET COUNT 102 10^3/uL (150-450); RED BLOOD COUNT 3.12 10^6/uL (4.35-5.55); WHITE BLOOD COUNT 9.5 10^3/uL (4.0-10.5)
[2020-02-25 19:43] LABS: ABSOLUTE LYMPHOCYTES# (MANUAL) 2.5 10^3/uL (0.5-4.7); BAND NEUTROPHILS % (MANUAL) 1 % (3-5); BASOPHILS % (MANUAL) 0 % (0-2); EOSINOPHILS % (MANUAL) 2 % (0-6); LYMPHOCYTES % (MANUAL) 26 % (13-45); MONOCYTES % (MANUAL) 10 % (3-13); MYELOCYTES % (MANUAL) 2 % (0); SEGMENTED NEUTROPHILS % (MAN) 59 % (42-78); TOTAL CELLS COUNTED 100
[2020-02-25 19:44] LABS: ANISOCYTOSIS SLIGHT; OVALOCYTES 1+; PLATELET COMMENT DECREASED
[2020-02-25 20:11] VITALS: BP 150/53
== END 2020-02-25 23:31 | disposition short-term general hospital (02) | DRG 829 ==
LOC: ER 11:04 → EH 16:06 → 3W 21:00
PROVIDERS: ADMIT Family Medicine; ATTEND Family Medicine
PROC: 0HBT0ZX Excision of Right Breast, Open Approach, Diagnostic (ICD-10-PCS; principal; 2020-02-23)
PROC: 07D53ZX Extraction of Right Axillary Lymphatic, Percutaneous Approach, Diagnostic (ICD-10-PCS; 2020-02-23)
PROC: 30233R1 Transfusion of Nonautologous Platelets into Peripheral Vein, Percutaneous Approach (ICD-10-PCS; 2020-02-25)
DX: C7A.8 Other malignant neuroendocrine tumors (principal); E72.20 Disorder of urea cycle metabolism, unspecified; I85.10 Secondary esophageal varices without bleeding; C7B.8 Other secondary neuroendocrine tumors; E83.52 Hypercalcemia; K72.90 Hepatic failure, unspecified without coma; J44.9 Chronic obstructive pulmonary disease, unspecified; E78.5 Hyperlipidemia, unspecified; Z20.828 Contact with and (suspected) exposure to other viral communicable diseases; I10 Essential (primary) hypertension; M06.9 Rheumatoid arthritis, unspecified; N63.31 Unspecified lump in axillary tail of the right breast; N62 Hypertrophy of breast; K70.30 Alcoholic cirrhosis of liver without ascites; R22.9 Localized swelling, mass and lump, unspecified; R59.0 Localized enlarged lymph nodes; F10.21 Alcohol dependence, in remission; E66.9 Obesity, unspecified; M06.89 Other specified rheumatoid arthritis, multiple sites; Z79.899 Other long term (current) drug therapy; Z88.6 Allergy status to analgesic agent; Z87.891 Personal history of nicotine dependence
CPT/HCPCS: 36415; 36430; 70450; 71260; 74177; 78306; 80048; 80053; 80076; 81001; 82140; 82652; 83605; 83735; 83970; 84484; 85025; 85610; 86900; 86901; 87040; 87086; 87635; 88305; 88341; 88342; 93005; 93010; 99285; A9503; C9113; C9803; J0692; J1940; J3489; J3490; J7030; P9035; Q9969